=== PATIENT | female | born 1945 | race Caucasian/White ===

== ENCOUNTER → 2017-10-15 05:00 | Outpatient (REF) | payer MEDICARE, SELFPAY ==
[2017-10-15 08:33] LABS: Hematocrit 46.6 % (37-47); Hemoglobin 13.8 g/dl (12.0-15.0); Mean Corp Hgb Conc 29.6 g/gl (32-36); Mean Corpuscular Hgb 28.3 pg (27.0-32.0); Mean Corpuscular Volume 95.7 fL (81-99); Mean Platelet Vol. 11.7 fl (6.2-12.0); Platelet Count 169 K/mm3 (150-450); RBC Distribution Width CV 15.8 % (11.6-14.6); RBC Distribution Width SD 55.1 fl (35.1-43.9); Red Blood Count 4.87 M/mm3 (4.2-5.4); White Blood Count 5.7 K/mm3 (4.4-11.0)
[2017-10-15 08:43] LABS: Scan Indicated on CBC? Y/N NO
[2017-10-15 08:44] LABS: ALB/GLOB Ratio 0.9 RATIO (0.9-2.4); AST(SGOT) 17 U/L (15-37); Alanine Aminotransfer ALT/SGPT 16 U/L (12-78); Albumin, Serum 3.3 g/dL (3.4-5.0); Alkaline Phosphatase 64 U/L (45-117); Anion Gap 7 (5-15); BUN 14 mg/dL (7-18); BUN/Creat Ratio 17.1 RATIO (10-20); Chloride 99 mmol/L (98-107); Creatinine, Serum 0.82 mg/dL (0.55-1.02); EST Glomerular Filtration Rate 72 mL/min (>60); Est Glom Filt Rate - Afr Amer 88 mL/min (>60); Globulin 3.5 g/dL (2.2-4.2); Glucose 95 mg/dL (70-110); Potassium 4.1 mmol/L (3.5-5.1); Protein, Total 6.8 g/dL (6.4-8.2); Sodium Level 140 mmol/L (136-145)
== END ==
LOC: OLS.WHLBEN 05:00
PROVIDERS: Visit Provider Family Medicine
DX: I10 Essential (primary) hypertension (principal)
CPT/HCPCS: 36415; 80053; 85027

== ENCOUNTER → 2017-11-06 05:00 | Outpatient (REF) | payer MEDICARE, SELFPAY ==
[2017-11-06 09:42] LABS: Anion Gap 8 (5-15); BUN 18 mg/dL (7-18); BUN/Creat Ratio 19.4 RATIO (10-20); Calcium,Total 9.1 mg/dL (8.5-10.1); Chloride 98 mmol/L (98-107); Creatinine, Serum 0.93 mg/dL (0.55-1.02); EST Glomerular Filtration Rate 63 mL/min (>60); Est Glom Filt Rate - Afr Amer 76 mL/min (>60); Glucose 91 mg/dL (70-110); Sodium Level 140 mmol/L (136-145)
== END ==
LOC: OLS.WHLBEN 05:00
PROVIDERS: Visit Provider Family Medicine
DX: R60.9 Edema, unspecified (principal)
CPT/HCPCS: 36415; 80048

== ENCOUNTER → 2017-11-17 14:50 | Outpatient (REF) | payer MEDICARE, SELFPAY | LOC: OLS.WHLBEN 14:50 | PROVIDERS: Visit Provider Family Medicine | DX: J18.9 Pneumonia, unspecified organism (principal) | CPT/HCPCS: 36415; 87040 ==

== ENCOUNTER → 2017-11-19 05:00 | Outpatient (REF) | payer MEDICARE, SELFPAY ==
[2017-11-19 09:53] LABS: Anion Gap 8 (5-15); BUN 12 mg/dL (7-18); BUN/Creat Ratio 17.9 RATIO (10-20); Calcium,Total 8.8 mg/dL (8.5-10.1); Chloride 98 mmol/L (98-107); Creatinine, Serum 0.67 mg/dL (0.55-1.02); EST Glomerular Filtration Rate 91 mL/min (>60); Est Glom Filt Rate - Afr Amer 111 mL/min (>60); Glucose 100 mg/dL (70-110); Potassium 3.7 mmol/L (3.5-5.1); Sodium Level 142 mmol/L (136-145)
[2017-11-19 09:59] LABS: BNP,B-Type NATRIURETIC PEPTIDE 843.5 pg/mL (0-100)
== END ==
LOC: OLS.WHLBEN 05:00
PROVIDERS: Visit Provider Family Medicine
DX: J44.9 Chronic obstructive pulmonary disease, unspecified (principal); J18.9 Pneumonia, unspecified organism
CPT/HCPCS: 36415; 80048; 83880

== ENCOUNTER → 2017-11-20 05:00 | Outpatient (REF) | payer MEDICARE, SELFPAY ==
[2017-11-20 10:17] LABS: Hematocrit 43.7 % (37-47); Hemoglobin 13.5 g/dl (12.0-15.0); Mean Corp Hgb Conc 30.9 g/gl (32-36); Mean Corpuscular Hgb 28.7 pg (27.0-32.0); Mean Corpuscular Volume 92.8 fL (81-99); Mean Platelet Vol. 11.5 fl (6.2-12.0); Platelet Count 135 K/mm3 (150-450); RBC Distribution Width CV 16.2 % (11.6-14.6); RBC Distribution Width SD 53.3 fl (35.1-43.9); Red Blood Count 4.71 M/mm3 (4.2-5.4); Scan Indicated on CBC? Y/N NO; White Blood Count 5.3 K/mm3 (4.4-11.0)
[2017-11-20 10:36] LABS: ALB/GLOB Ratio 0.9 RATIO (0.9-2.4); AST(SGOT) 17 U/L (15-37); Alanine Aminotransfer ALT/SGPT 19 U/L (12-78); Albumin, Serum 3.1 g/dL (3.4-5.0); Alkaline Phosphatase 71 U/L (45-117); Anion Gap 8 (5-15); BUN 12 mg/dL (7-18); Calcium,Total 8.7 mg/dL (8.5-10.1); Chloride 100 mmol/L (98-107); Creatinine, Serum 0.75 mg/dL (0.55-1.02); EST Glomerular Filtration Rate 80 mL/min (>60); Est Glom Filt Rate - Afr Amer 97 mL/min (>60); Globulin 3.5 g/dL (2.2-4.2); Glucose 78 mg/dL (70-110); Potassium 3.8 mmol/L (3.5-5.1); Protein, Total 6.6 g/dL (6.4-8.2); Sodium Level 144 mmol/L (136-145)
== END ==
LOC: OLS.WHLBEN 05:00
PROVIDERS: Visit Provider Family Medicine
DX: I10 Essential (primary) hypertension (principal); E78.5 Hyperlipidemia, unspecified
CPT/HCPCS: 36415; 80053; 85027

== ENCOUNTER → 2017-12-17 05:00 | Outpatient (REF) | payer MEDICARE, SELFPAY ==
[2017-12-17 09:30] LABS: Hematocrit 42.5 % (37-47); Hemoglobin 13.3 g/dl (12.0-15.0); Mean Corp Hgb Conc 31.3 g/gl (32-36); Mean Corpuscular Hgb 29.3 pg (27.0-32.0); Mean Corpuscular Volume 93.6 fL (81-99); Mean Platelet Vol. 11.9 fl (6.2-12.0); Platelet Count 119 K/mm3 (150-450); RBC Distribution Width CV 17.3 % (11.6-14.6); RBC Distribution Width SD 56.9 fl (35.1-43.9); Red Blood Count 4.54 M/mm3 (4.2-5.4); White Blood Count 3.5 K/mm3 (4.4-11.0)
[2017-12-17 09:41] LABS: Scan Indicated on CBC? Y/N NO
[2017-12-17 09:42] LABS: AST(SGOT) 18 U/L (15-37); Alanine Aminotransfer ALT/SGPT 19 U/L (13-56); Albumin, Serum 3.4 g/dL (3.2-5.0); Alkaline Phosphatase 84 U/L (45-117); Anion Gap 8 (5-15); BUN 13 mg/dL (7-18); BUN/Creat Ratio 16.1 RATIO (10-20); Chloride 101 mmol/L (98-107); Cholesterol 167 mg/dL (200); Creatinine, Serum 0.81 mg/dL (0.55-1.02); EST Glomerular Filtration Rate 74 mL/min (>60); Est Glom Filt Rate - Afr Amer 89 mL/min (>60); Globulin 3.5 g/dL (2.2-4.2); Glucose 92 mg/dL (74-106); High Density Lipoprotein 54 mg/dL; Potassium 3.9 mmol/L (3.5-5.1); Protein, Total 6.9 g/dL (6.4-8.2); Sodium Level 142 mmol/L (136-145); Triglycerides 102 mg/dL; Very Low Density Lipoprotein 20 mg/dL (5-40)
== END ==
LOC: OLS.WHLBEN 05:00
PROVIDERS: Visit Provider Family Medicine
DX: I10 Essential (primary) hypertension (principal); E78.5 Hyperlipidemia, unspecified
CPT/HCPCS: 36415; 80053; 80061; 85027

== ENCOUNTER → 2017-12-19 05:00 | Outpatient (REF) | payer MEDICARE, SELFPAY ==
[2017-12-19 09:50] LABS: BNP,B-Type NATRIURETIC PEPTIDE 915.9 pg/mL (0-100)
== END ==
LOC: OLS.WHLBEN 05:00
PROVIDERS: Visit Provider Family Medicine
DX: I50.9 Heart failure, unspecified (principal)
CPT/HCPCS: 36415; 83880

== ENCOUNTER 2017-12-24 14:18 | Inpatient (IN) | payer MEDICARE, SELFPAY ==
[2017-12-24] VITALS (8 sets, daily range): BP systolic 130–137; BP diastolic 82–91; PULSE 94–106; RESP 18–24; TEMP 36.4–36.9; O2SAT 85–94; BMI 42.9; BMI 41.3
--- NOTE | 2017-12-24 15:05 | RAD_ITS ---
STUDY: X-RAY - RIGHT ANKLE REASON FOR EXAM: Female, 72 years old. Pain following a fall. TECHNIQUE: 3 view(s) of the ankle. COMPARISON: None. FINDINGS: There is a comminuted spiral fracture of the distal tibial shaft. There is good alignment. Normal medial and lateral malleoli. Normal tibiotalar articulation and ankle mortise. Plantar spur. Fusion of the talocalcaneal joint. There is osteopenia of the tarsal bones with a finding suggestive of a partial fusion. Diffuse soft tissue swelling. Vascular calcification. RAD/Ankle min 3 Views IMPRESSION: There is evidence of a comminuted spiral fracture of the distal tibia with a diffuse soft tissue swelling. Vascular calcification. There is fusion of the talocalcaneal joint as well as the tarsal joints. Electronically Signed: Antoni Meier MD at 15:29 EST Tel [phone], Service support ,
--- NOTE | 2017-12-24 16:00 | EKG12_ITS ---
Test Reason : FALL Blood Pressure : / mmHG Vent. Rate : 096 BPM Atrial Rate : 096 BPM P-R Int : 160 ms QRS Dur : 152 ms QT Int : 394 ms P-R-T Axes : 056 -16 052 degrees QTc Int : 497 ms Normal sinus rhythm Low voltage QRS (limb leads) Left bundle branch block Abnormal ECG Confirmed by ALEAH LARA, JUSTO ([id number]), news editor CLARISSA CONTRERAS ([id number]) on 12/26/2017 1:32:49 PM Referred By: LUISA Confirmed By:JUSTO BULLARD MD
--- NOTE | 2017-12-24 16:00 | RAD_ITS ---
STUDY: X-RAY CHEST REASON FOR EXAM: Female, 72 years old. Cough. TECHNIQUE: AP portable COMPARISON: March 14, 2017 FINDINGS: There is a new moderate-sized right pleural effusion. There is cardiomegaly present. Normal mediastinum and fazal. Normal visualized pulmonary arteries. There is atherosclerotic calcification of the aortic arch with tortuosity. Normal visualized thoracic spine. Normal visualized ribs, clavicles, and shoulders. There is no demonstrated abnormality of the visualized soft tissue structures of the upper abdomen. RAD/Chest 1 View (Portable) IMPRESSION: New right-sided pleural effusion, cannot exclude associated right basilar atelectasis and/or pneumonia. Electronically Signed: Shyann Sanchez MD at 17:01 EST Tel , Service support ,
--- NOTE | 2017-12-24 16:05 | ED.DCSUM_ITS ---
- ER Visit Summary Date of Service: 12/24/17 Chief Complaint: Fall History of Present Illness: The patient is a 72 F who presents after a fall. 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 She is at an assisted living. She was attempting to sit down on the commode when she slipped and fell injuring her right ankle. She denies any other injuries. She denies back pain chest pain head injury loss of consciousness headache or vomiting. She did sustain some abrasions to her forearms but denies any pain. Physical Examination: Febrile heart rate 106 respiratory rate 24 Heart regular rhythm tachycardia Tachypnea without rales or wheezing Abdomen soft Patient has right ankle and distal lower leg tenderness she has a palpable dorsalis pedis pulse she has chronic venous stasis changes limited painful range of motion ankle no foot tenderness no pain at the proximal fibula or knee no pain at the hip GCS of 15 with no focal or lateralizing neurological deficits Test Results: Ankle x-ray shows a comminuted spiral distal tibial fracture Emergency Department Course and Treatment: Given patient's poor mobility at baseline with a distal tibial fracture I do not believe she will be able to care for herself at her current level of care. I spoke to Dr. Hermes Castle's nurse for orthopedic consult. We will admit patient to hospitalist serving given multiple comorbidities. At the time this dictation further medical clearance including laboratory studies EKG and chest x-ray have been ordered currently pending. Treatment Plan: [] Disposition: Admit Impression: Right tibia fracture This note was generated with [employer] dictation software. It may contain incorrect words, spelling, and punctuation that were not noted in review of the chart prior to signing ED Disposition - Plan for ED Patient: Chief Complaint: Fall Referrals: Garret Castle MD [Primary Care Provider] -
[2017-12-24 16:44] LABS: International Normalized Ratio 1.2; Prothrombin Time (Protime)PT. 14.5 SECONDS (11.7-14.9)
[2017-12-24 16:49] LABS: Absolute Lymphocyte Count 0.59 X10^3/ul (0.83-4.51); Absolute Neutrophil Count 6.1 X10^3/uL (2.0-7.7); Basophil# 0.08 X10^3/uL; Basophil% 1.1 % (0-1); Differential Indicated SCAN CRITERIA MET; Eosinophil# 0.04 X10^3/uL; Eosinophils% 0.5 % (0-5); Hematocrit 47.1 % (37-47); Hemoglobin 14.5 g/dl (12.0-15.0); Lymphocyte # 0.59 X10^3/ul (4.0); Mean Corp Hgb Conc 30.8 g/gl (32-36); Mean Corpuscular Hgb 28.8 pg (27.0-32.0); Mean Corpuscular Volume 93.6 fL (81-99); Mean Platelet Vol. 11.2 fl (6.2-12.0); Monocyte# 0.51 X10^3/uL; Monocyte% 6.9 % (0-10); Neutrophil # 6.13 X10^3/uL (2.7-7.7); Neutrophil % 83.2 % (47-70); POSITIVE COUNT NO; POSITIVE DIFFERENTIAL YES; POSITIVE MORPHOLOGY NO; Platelet Count 150 K/mm3 (150-450); RBC Distribution Width CV 17.7 % (11.6-14.6); RBC Distribution Width SD 58.3 fl (35.1-43.9); Red Blood Count 5.03 M/mm3 (4.2-5.4); White Blood Count 7.4 K/mm3 (4.4-11.0)
[2017-12-24 17:05] LABS: Anion Gap 7 (5-15); BUN 17 mg/dL (7-18); BUN/Creat Ratio 18.8 RATIO (10-20); Calcium,Total 9.4 mg/dL (8.5-10.1); Chloride 99 mmol/L (98-107); EST Glomerular Filtration Rate 65 mL/min (>60); Est Glom Filt Rate - Afr Amer 79 mL/min (>60); Estimated Creatinine Clearance 44.03 ml/min; Glucose 120 mg/dL (74-106); Potassium 4.2 mmol/L (3.5-5.1); Sodium Level 142 mmol/L (136-145)
--- NOTE | 2017-12-24 17:23 | PCM.HP.STD ---
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 (6) Alcohol abuse Status: Chronic Comment: PATIENT STATES SHE DRINKS 1- 1 1/2 LITERS OF WINE NITELY-THERE WAS NO EVIDENCE OF ANXIETY OR DT'S DURING HER HOSPITAL STAY (7) Tobacco consumption Status: Chronic Comment: PATIENT SMOKES 1- 1 1/2 PACKS CIGARETTES PER DAY-REFUSED NICOTINE PATCH AND HAD NO SIDE EFFECTS FROM BEING OFF TOBACCO WHILE IN HOSPITAL (8) Hyperlipidemia Status: Chronic (9) Anxiety Status: Chronic (10) Depression Status: Chronic (11) Deafness Status: Chronic History of Present Illness Date of Admission: 12/24/17 Chief Complaint: Mechanical fall, right leg injury The patient is a 72 year old F who presents to the emergency room after sustaining mechanical fall at assisted living facility in which she injured right leg. Patient states she was using the restroom when she fell off of the side of the commode. She states she was unable to help herself up due to being in an awkward position. She denies hitting her head at the time of the fall. She denies dizziness or other symptoms prior to fall. She states she has had falls in the past which resulted in injuries as well. Patient denies pain currently but states she has increased pain with movement of right lower extremity. She denies other associated complaints. 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 Right lower extremity has splint in place and is wrapped with Nestor bandage. She is able to move her toes on the right lower extremity and sensation is intact. Her other past medical history includes nonischemic cardiomyopathy, hypertension, sinus tachycardia, degenerative joint disease of the lumbar spine, history of tobacco use, hyperlipidemia, history of pelvic fracture following mechanical fall, alcohol abuse. Patient drinks 1-2 L of wine per day. Past Medical History Past Medical History (Chronic Problems): Chronic Problems Anxiety (Chronic) Depression (Chronic) Deafness (Chronic) Cardiomyopathy (Chronic) NON ISCHEMIC CARDIOMYOPATHY Hypertension (Chronic) Degenerative joint disease (DJD) of lumbar spine (Chronic) Alcohol abuse (Chronic) PATIENT STATES SHE DRINKS 1- 1 1/2 LITERS OF WINE NITELY-THERE WAS NO EVIDENCE OF ANXIETY OR DT'S DURING HER HOSPITAL STAY Tobacco consumption (Chronic) PATIENT SMOKES 1- 1 1/2 PACKS CIGARETTES PER DAY-REFUSED NICOTINE PATCH AND HAD NO SIDE EFFECTS FROM BEING OFF TOBACCO WHILE IN HOSPITAL Hyperlipidemia (Chronic) Allergies acetaminophen Allergy (Verified 12/24/17 15:53) Unknown ibuprofen Allergy (Verified 12/24/17 15:53) Swelling Penicillins Allergy (Verified 12/24/17 15:53) Swelling Home Medications: Ambulatory Orders Medication Instructions Recorded Albuterol Aerosols [Ventolin 2.5 mg INHALATION Q6H PRN PRN 12/24/17 Aerosols] Buspirone HCl 15 mg PO BID 12/24/17 Carbamide Peroxide [Ear Wax 3 drop OT QHS 12/24/17 Removal] Cyanocobalamin [Vitamin B12] 1,000 mcg PO DAILY@0800 12/24/17 Escitalopram Oxalate [Lexapro] 10 mg PO DAILY 12/24/17 Fluticasone/Vilanterol [Breo 1 each IH DAILY 12/24/17 Ellipta Inhaler] Folic Acid 1 mg PO DAILY 12/24/17 Furosemide 40 mg PO DAILY 12/24/17 Ipratropium/Albuterol Sulfate 3 ml INHALATION Q4H PRN PRN 12/24/17 [Duoneb] Lactobacillus Acidophilus 1 each PO DAILY 12/24/17 [Acidophilus] Loperamide [Imodium] 4 mg PO X1 PRN 12/24/17 Lorazepam [Ativan] 0.25 mg PO Q6H PRN PRN 12/24/17 Melatonin 1 mg PO QHS 12/24/17 Multivitamin [Animal Shapes] 1 each PO DAILY 12/24/17 Trazodone HCl 25 mg PO QHS 12/24/17 Surgical History: hysterectomy, - - oophorectomy, ankle surgery, foot surgery, bilateral knee surgery, wrist surgery Psychiatric History: No pertinent psych hx, Anxiety [employer] History: No pertinent [employer] history, ovarian cancer Lives: Detention Smoking Status: Former smoker Alcohol: Heavy Drugs: None - *Family History Maternal History Items: Unknown - Adopted Paternal History Items: Unknown - Adopted Review of Systems Constitutional: Denies: Chills, Fever, Weight Change HEENT: Denies: Head Aches, Sinus Congestion, Sinus Drainage Cardiovascular: Denies: Chest Pain, Palpitations Respiratory: Reports: Cough - Chronic, nonproductive, Shortness of breath upon exertion - Chronic Gastrointestinal: Denies: Abdominal Pain, Nausea, Vomiting Genitourinary: Denies: Dysuria Musculoskeletal: Reports: - - Right lower extremity pain with movement Neurological: Reports: Balance problems, - - Chronic numbness, tingling. Denies: Blurred vision, Slurred speech, Confusion, Focal weakness Psychiatric: Denies: Anxiety, Depression, Homicidal Ideations, Suicidal Ideations Hematologic/ Lymphatic: Denies: Easy Bruising, Easy Bleeding VTE Information - Inpt Only VTE Present on Admission: No VTE Mechan Device Prophylaxis: None VTE Pharm Prophylaxis ordered?: Yes - Physical Exam General: Alert, Oriented x3, Cooperative, No apparent distress Oral: Dry Mucosa Neck: Supple, No JVD, Negative Carotid Bruits Lungs: Diminished, Rhonchi Cardiovascular: Regular Rhythm, Normal S1, Normal S2, No murmurs, Tachycardic Abdomen: Bowel Sounds Present, Soft, Non Tender, Non-Distended, Obese Extremities: No clubbing, No cyanosis, No edema, Capillary Refill Less than 3 Seconds Skin: No rashes, No breakdown Musculoskeletal: Tenderness - RLE Lymphatic: No Cervical, Supraclavicular, or Inguinal Adenopathy Neurological: Cranial nerves II-XII grossly intact, Neuro grossly intact Psych/Mental Status: Normal Affect, Appropriate Vital Signs Temp Pulse Resp BP Pulse Ox 97.5 F L 104 H 24 H 130/88 H 90 12/24/17 14:20 12/24/17 17:05 12/24/17 14:20 12/24/17 17:05 12/24/17 17:05 Oxygen Flow Rate 3 Oxygen Delivery Method Nasal Cannula Weight: 106.4 kg Body Mass Index (BMI) 42.9 Laboratory Tests Past 24 Hrs 12/24/17 12/24/17 12/24/17 16:20 16:20 16:20 WBC 7.4 RBC 5.03 Hgb 14.5 Hct 47.1 H MCV 93.6 MCH 28.8 MCHC 30.8 L RDW 17.7 H RDW Differential 58.3 H Plt Count 150 MPV 11.2 Immature Gran % (Auto) 0.300 Neut % (Auto) 83.2 H Lymph % (Auto) 8.0 L Branch % (Auto) 6.9 Eos % (Auto) 0.5 Baso % (Auto) 1.1 H Absolute Neuts (auto) 6.1 Absolute Lymphs (auto) 0.59 L Total Counted Not Reportable Differential Comment PT 14.5 INR 1.2 Sodium 142 Potassium 4.2 Chloride 99 Carbon Dioxide 36.0 H Anion Gap 7 BUN 17 Creatinine 0.90 Estim Creat Clear Calc 44.03 Est GFR (MDRD) Af Amer 79 Est GFR (MDRD) Non-Af 65 BUN/Creatinine Ratio 18.8 Glucose 120 H Calcium 9.4 Assessment/Plan 1. Acute distal tibia spiral fracture secondary to mechanical fall prior to admission with associated physical debility-Dr. Hermes Castle, orthopedic consulted by ER. X-ray of right ankle shows evidence of a comminuted spiral fracture of the distal tibia with a diffuse soft tissue swelling. Vascular calcification. Fusion of the talocalcaneal joint as well as the tarsal joints. Ortho consulted pending. PRN pain regimen. PT/OT when approved by ortho. Fall precautions. Patient has had previous falls in assisted living in the past resulting in injury including pelvic fracture. It is possible she may need discharge to [facility] facility at discharge. 2. Right sided pleural effusion-low suspicion for pneumonia-patient has chronic nonproductive cough. Denies fever, chills. Chest x-ray shows new right-sided pleural effusion, cannot exclude associated right basilar atelectasis and/or pneumonia. No leukocytosis. Patient is afebrile. Albuterol and DuoNeb aerosols. IS/PEP. Repeat CXR in a.m. 3. Chronic COPD-patient has extensive smoking history, previously smoking 3 packs per day. Denies recent tobacco use. She is on multiple inhalers at [facility] facility including albuterol, Brio elliptical, DuoNeb. Patient has not had any formal pulmonary function testing. Albuterol and DuoNeb aerosols. Continue supplemental oxygen to maintain at O2 at or above 90%. IS. 4. Acute on chronic hypoxia-suspected secondary to #1/#2. Patient states she wears oxygen intermittently at assisted living facility. Continue supplemental oxygen to maintain O2 at or above 90%. 5. History of nonischemic cardiomyopathy-continue Lasix regimen. Echocardiogram March 2017 showed an estimated ejection fraction of 30%, moderate mitral valve insufficiency. 6. Hypertension-stable, continue home Lasix regimen. 7. Hyperlipidemia-not on a statin. 8. 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 9. Alcohol abuse-encouraged alcohol cessation. Continue B12, folic acid, multivitamin supplementation. [facility] protocol. 10. History of tobacco use-denies current use. Encouraged continued cessation. 11. Anxiety/Depression-continue home medication regimen including buspirone, Lexapro, Ativan. 12. History of ovarian cancer-status post hysterectomy in 1981. 13. Deafness-patient communicates fairly well. Provide assistive devices for communication as necessary. DVT prophylaxis-Lovenox subcu. This patient was seen by NABOR Elizabeth under the supervision of Dr. Wheeler. <Hilary Wheeler - Last Filed: 12/24/17 21:12> History of Present Illness The patient is a 72 year old F [] Past Medical History Allergies acetaminophen Allergy (Verified 12/24/17 15:53) Unknown ibuprofen Allergy (Verified 12/24/17 15:53) Swelling Penicillins Allergy (Verified 12/24/17 15:53) Swelling - Physical Exam Vital Signs Temp Pulse Resp BP Pulse Ox 98.4 F 102 H 18 134/85 H 94 12/24/17 18:02 12/24/17 18:02 12/24/17 18:02 12/24/17 18:02 12/24/17 18:02 Oxygen Flow Rate 3 Oxygen Delivery Method Nasal Cannula Weight: 102.512 kg Body Mass Index (BMI) 41.3 Laboratory Tests Past 24 Hrs 12/24/17 12/24/17 18:58 18:58 Vit D 1,25-Dihydroxy Pending Ethyl Alcohol < 3.0 Assessment/Plan Patient was seen and examined independently of nurse practitioner, Margo Bauman. History and physical exam as well as assessment and plan per her notes. Patient denies any complains of pain at the time of being seen. Fell in her bathroom, called for help and found to have a distal tibial/fibula fracture. Vitals are stable, labs are unremarkable. A/P 1. Right comminuted spiral fracture of the distal tibia, orthopedics consulted, patient is moderate risk for planned procedure, because of her pulmonary status with underlying history of COPD where she is supposed to wear oxygen sometimes, with pleural effusion seen on x-ray. We need to repeat the x-ray in the morning, continue on incentive spirometer. Doubt pneumonia because no fever or leukocytosis. 2. COPD, not in acute exacerbation 3. Acute respiratory insufficiency secondary to atelectasis/pleural effusion, will need to follow-up and wean oxygen for SpO2 more than 92% 4. Chronic CHF, systolic, not in acute exacerbation, continue on home Lasix 5. 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 Alcohol abuse, polypharmacy -she is on multiple sedatives such as Ativan, trazodone, melatonin that likely contributed to her patient's fall today, will DC as needed Ativan today, and consider decreasing trazodone if patient has no complaints with sleep. Code Visit Inpatient E&M: 84385 Init Hosp L3
--- NOTE | 2017-12-24 17:53 | HP.PCM_ITS ---
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 (6) Alcohol abuse Status: Chronic Comment: PATIENT STATES SHE DRINKS 1- 1 1/2 LITERS OF WINE NITELY-THERE WAS NO EVIDENCE OF ANXIETY OR DT'S DURING HER HOSPITAL STAY (7) Tobacco consumption Status: Chronic Comment: PATIENT SMOKES 1- 1 1/2 PACKS CIGARETTES PER DAY- REFUSED NICOTINE PATCH AND HAD NO SIDE EFFECTS FROM BEING OFF TOBACCO WHILE IN HOSPITAL (8) Hyperlipidemia Status: Chronic (9) Anxiety Status: Chronic (10) Depression Status: Chronic (11) Deafness Status: Chronic History of Present Illness Date of Admission: 12/24/17 Chief Complaint: Mechanical fall, right leg injury The patient is a 72 year old F who presents to the emergency room after sustaining mechanical fall at assisted living facility in which she injured right leg. Patient states she was using the restroom when she fell off of the side of the commode. She states she was unable to help herself up due to being in an awkward position. She denies hitting her head at the time of the fall. She denies dizziness or other symptoms prior to fall. She states she has had falls in the past which resulted in injuries as well. Patient denies pain currently but states she has increased pain with movement of right lower extremity. She denies other associated complaints. 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 Right lower extremity has splint in place and is wrapped with Nestor bandage. She is able to move her toes on the right lower extremity and sensation is intact. Her other past medical history includes nonischemic cardiomyopathy, hypertension, sinus tachycardia, degenerative joint disease of the lumbar spine, history of tobacco use, hyperlipidemia, history of pelvic fracture following mechanical fall, alcohol abuse. Patient drinks 1-2 L of wine per day. Past Medical History Past Medical History (Chronic Problems): Chronic Problems Anxiety (Chronic) Depression (Chronic) Deafness (Chronic) Cardiomyopathy (Chronic) NON ISCHEMIC CARDIOMYOPATHY Hypertension (Chronic) Degenerative joint disease (DJD) of lumbar spine (Chronic) Alcohol abuse (Chronic) PATIENT STATES SHE DRINKS 1- 1 1/2 LITERS OF WINE NITELY-THERE WAS NO EVIDENCE OF ANXIETY OR DT'S DURING HER HOSPITAL STAY Tobacco consumption (Chronic) PATIENT SMOKES 1- 1 1/2 PACKS CIGARETTES PER DAY-REFUSED NICOTINE PATCH AND HAD NO SIDE EFFECTS FROM BEING OFF TOBACCO WHILE IN HOSPITAL Hyperlipidemia (Chronic) Allergies acetaminophen Allergy (Verified 12/24/17 15:53) Unknown ibuprofen Allergy (Verified 12/24/17 15:53) Swelling Penicillins Allergy (Verified 12/24/17 15:53) Swelling Home Medications: Ambulatory Orders Medication Instructions Recorded Albuterol Aerosols [Ventolin 2.5 mg INHALATION Q6H PRN PRN 12/24/17 Aerosols] Buspirone HCl 15 mg PO BID 12/24/17 Carbamide Peroxide [Ear Wax 3 drop OT QHS 12/24/17 Removal] Cyanocobalamin [Vitamin B12] 1,000 mcg PO DAILY@0800 12/24/17 Escitalopram Oxalate [Lexapro] 10 mg PO DAILY 12/24/17 Fluticasone/Vilanterol [Breo 1 each IH DAILY 12/24/17 Ellipta Inhaler] Folic Acid 1 mg PO DAILY 12/24/17 Furosemide 40 mg PO DAILY 12/24/17 Ipratropium/Albuterol Sulfate 3 ml INHALATION Q4H PRN PRN 12/24/17 [Duoneb] Lactobacillus Acidophilus 1 each PO DAILY 12/24/17 [Acidophilus] Loperamide [Imodium] 4 mg PO X1 PRN 12/24/17 Lorazepam [Ativan] 0.25 mg PO Q6H PRN PRN 12/24/17 Melatonin 1 mg PO QHS 12/24/17 Multivitamin [Animal Shapes] 1 each PO DAILY 12/24/17 Trazodone HCl 25 mg PO QHS 12/24/17 Surgical History: hysterectomy, - - oophorectomy, ankle surgery, foot surgery, bilateral knee surgery, wrist surgery Psychiatric History: No pertinent psych hx, Anxiety [employer] 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 History: No pertinent ME[employer] TE[employer]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 history, ovarian cancer Lives: Intermediate Smoking Status: Former smoker Alcohol: Heavy Drugs: None - *Family History Maternal History Items: Unknown - Adopted Paternal History Items: Unknown - Adopted Review of Systems Constitutional: Denies: Chills, Fever, Weight Change HEENT: Denies: Head Aches, Sinus Congestion, Sinus Drainage Cardiovascular: Denies: Chest Pain, Palpitations Respiratory: Reports: Cough - Chronic, nonproductive, Shortness of breath upon exertion - Chronic Gastrointestinal: Denies: Abdominal Pain, Nausea, Vomiting Genitourinary: Denies: Dysuria Musculoskeletal: Reports: - - Right lower extremity pain with movement Neurological: Reports: Balance problems, - - Chronic numbness, tingling. Denies : Blurred vision, Slurred speech, Confusion, Focal weakness Psychiatric: Denies: Anxiety, Depression, Homicidal Ideations, Suicidal Ideations Hematologic/ Lymphatic: Denies: Easy Bruising, Easy Bleeding VTE Information - Inpt Only VTE Present on Admission: No VTE Mechan Device Prophylaxis: None VTE Pharm Prophylaxis ordered?: Yes - Physical Exam General: Alert, Oriented x3, Cooperative, No apparent distress Oral: Dry Mucosa Neck: Supple, No JVD, Negative Carotid Bruits Lungs: Diminished, Rhonchi Cardiovascular: Regular Rhythm, Normal S1, Normal S2, No murmurs, Tachycardic Abdomen: Bowel Sounds Present, Soft, Non Tender, Non-Distended, Obese Extremities: No clubbing, No cyanosis, No edema, Capillary Refill Less than 3 Seconds Skin: No rashes, No breakdown Musculoskeletal: Tenderness - RLE Lymphatic: No Cervical, Supraclavicular, or Inguinal Adenopathy Neurological: Cranial nerves II-XII grossly intact, Neuro grossly intact Psych/Mental Status: Normal Affect, Appropriate Vital Signs Temp Pulse Resp BP Pulse Ox 97.5 F L 104 H 24 H 130/88 H 90 12/24/17 14:20 12/24/17 17:05 12/24/17 14:20 12/24/17 17:05 12/24/17 17:05 Oxygen Flow Rate 3 Oxygen Delivery Method Nasal Cannula Weight: 106.4 kg Body Mass Index (BMI) 42.9 Laboratory Tests Past 24 Hrs 12/24/17 12/24/17 12/24/17 16:20 16:20 16:20 WBC 7.4 RBC 5.03 Hgb 14.5 Hct 47.1 H MCV 93.6 MCH 28.8 MCHC 30.8 L RDW 17.7 H RDW Differential 58.3 H Plt Count 150 MPV 11.2 Immature Gran % (Auto) 0.300 Neut % (Auto) 83.2 H Lymph % (Auto) 8.0 L [place] % (Auto) 6.9 Eos % (Auto) 0.5 Baso % (Auto) 1.1 H Absolute Neuts (auto) 6.1 Absolute Lymphs (auto) 0.59 L Total Counted Not Reportable Differential Comment PT 14.5 INR 1.2 Sodium 142 Potassium 4.2 Chloride 99 Carbon Dioxide 36.0 H Anion Gap 7 BUN 17 Creatinine 0.90 Estim Creat Clear Calc 44.03 Est GFR (MDRD) Af Amer 79 Est GFR (MDRD) Non-Af 65 BUN/Creatinine Ratio 18.8 Glucose 120 H Calcium 9.4 Assessment/Plan 1. Acute distal tibia spiral fracture secondary to mechanical fall prior to admission with associated physical debility-Dr. Hermes Castle, orthopedic consulted by ER. X-ray of right ankle shows evidence of a comminuted spiral fracture of the distal tibia with a diffuse soft tissue swelling. Vascular calcification. Fusion of the talocalcaneal joint as well as the tarsal joints. Ortho consulted pending. PRN pain regimen. PT/OT when approved by ortho. Fall precautions. Patient has had previous falls in assisted living in the past resulting in injury including pelvic fracture. It is possible she may need discharge to halfway facility at discharge. 2. Right sided pleural effusion-low suspicion for pneumonia-patient has chronic nonproductive cough. Denies fever, chills. Chest x-ray shows new right- sided pleural effusion, cannot exclude associated right basilar atelectasis and/ or pneumonia. No leukocytosis. Patient is afebrile. Albuterol and DuoNeb aerosols. IS/PEP. Repeat CXR in a.m. 3. Chronic COPD-patient has extensive smoking history, previously smoking 3 packs per day. Denies recent tobacco use. She is on multiple inhalers at halfway facility including albuterol, Brio elliptical, DuoNeb. Patient has not had any formal pulmonary function testing. Albuterol and DuoNeb aerosols. Continue supplemental oxygen to maintain at O2 at or above 90%. IS. 4. Acute on chronic hypoxia-suspected secondary to #1/#2. Patient states she wears oxygen intermittently at assisted living facility. Continue supplemental oxygen to maintain O2 at or above 90%. 5. History of nonischemic cardiomyopathy-continue Lasix regimen. Echocardiogram March 2017 showed an estimated ejection fraction of 30%, moderate mitral valve insufficiency. 6. Hypertension-stable, continue home Lasix regimen. 7. Hyperlipidemia-not on a statin. 8. 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 9. Alcohol abuse-encouraged alcohol cessation. Continue B12, folic acid, multivitamin supplementation. [facility] protocol. 10. History of tobacco use-denies current use. Encouraged continued cessation. 11. Anxiety/Depression-continue home medication regimen including buspirone, Lexapro, Ativan. 12. History of ovarian cancer-status post hysterectomy in 1981. 13. Deafness-patient communicates fairly well. Provide assistive devices for communication as necessary. DVT prophylaxis-Lovenox subcu. This patient was seen by NABOR Elizabeth under the supervision of Dr. Wheeler. <Hilary Wheeler - Last Filed: 12/24/17 21:12> History of Present Illness The patient is a 72 year old F [] Past Medical History Allergies acetaminophen Allergy (Verified 12/24/17 15:53) Unknown ibuprofen Allergy (Verified 12/24/17 15:53) Swelling Penicillins Allergy (Verified 12/24/17 15:53) Swelling - Physical Exam Vital Signs Temp Pulse Resp BP Pulse Ox 98.4 F 102 H 18 134/85 H 94 12/24/17 18:02 12/24/17 18:02 12/24/17 18:02 12/24/17 18:02 12/24/17 18:02 Oxygen Flow Rate 3 Oxygen Delivery Method Nasal Cannula Weight: 102.512 kg Body Mass Index (BMI) 41.3 Laboratory Tests Past 24 Hrs 12/24/17 12/24/17 18:58 18:58 Vit D 1,25-Dihydroxy Pending Ethyl Alcohol < 3.0 Assessment/Plan Patient was seen and examined independently of nurse practitioner, Margo Bauman. History and physical exam as well as assessment and plan per her notes. Patient denies any complains of pain at the time of being seen. Fell in her bathroom, called for help and found to have a distal tibial/fibula fracture. Vitals are stable, labs are unremarkable. A/P 1. Right comminuted spiral fracture of the distal tibia, orthopedics consulted, patient is moderate risk for planned procedure, because of her pulmonary status with underlying history of COPD where she is supposed to wear oxygen sometimes, with pleural effusion seen on x-ray. We need to repeat the x-ray in the morning , continue on incentive spirometer. Doubt pneumonia because no fever or leukocytosis. 2. COPD, not in acute exacerbation 3. Acute respiratory insufficiency secondary to atelectasis/pleural effusion, will need to follow-up and wean oxygen for SpO2 more than 92% 4. Chronic CHF, systolic, not in acute exacerbation, continue on home Lasix 5. 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 Alcohol abuse, polypharmacy -she is on multiple sedatives such as Ativan, trazodone, melatonin that likely contributed to her patient's fall today, will DC as needed Ativan today, and consider decreasing trazodone if patient has no complaints with sleep. Code Visit Inpatient E&M: 38160 Init Hosp L3
[2017-12-24 20:49] LABS: Alcohol, Blood (Medical)-Serum < 3.0 mg/dL
--- NOTE | 2017-12-24 20:59 | PCM.CONS.GEN ---
Reason for Consult Date of Consultation: 12/24/17 History of Present Illness: The patient is a 72 year old female with multiple medical problems. She stumbled today fracturing her right lower extremity. She denied chest pain or shortness of breath at the time. No head injury. She has fallen before. She has had previous pelvic fractures treated nonoperatively. She is a minimal ambulator with assistance. She does use a wheelchair some. Her pain is currently well controlled. She is comfortable in her splint. [] Past Medical History Past Medical History (Chronic Problems): Chronic Problems Anxiety (Chronic) Depression (Chronic) Deafness (Chronic) Cardiomyopathy (Chronic) NON ISCHEMIC CARDIOMYOPATHY Hypertension (Chronic) Degenerative joint disease (DJD) of lumbar spine (Chronic) Alcohol abuse (Chronic) PATIENT STATES SHE DRINKS 1- 1 1/2 LITERS OF WINE NITELY-THERE WAS NO EVIDENCE OF ANXIETY OR DT'S DURING HER HOSPITAL STAY Tobacco consumption (Chronic) PATIENT SMOKES 1- 1 1/2 PACKS CIGARETTES PER DAY-REFUSED NICOTINE PATCH AND HAD NO SIDE EFFECTS FROM BEING OFF TOBACCO WHILE IN HOSPITAL Hyperlipidemia (Chronic) Allergies acetaminophen Allergy (Verified 12/24/17 15:53) Unknown ibuprofen Allergy (Verified 12/24/17 15:53) Swelling Penicillins Allergy (Verified 12/24/17 15:53) Swelling Home Medications: Ambulatory Orders Medication Instructions Recorded Albuterol Aerosols [Ventolin 2.5 mg INHALATION Q6H PRN PRN 12/24/17 Aerosols] Buspirone HCl 15 mg PO BID 12/24/17 Carbamide Peroxide [Ear Wax 3 drop OT QHS 12/24/17 Removal] Cyanocobalamin [Vitamin B12] 1,000 mcg PO DAILY@0800 12/24/17 Escitalopram Oxalate [Lexapro] 10 mg PO DAILY 12/24/17 Fluticasone/Vilanterol [Breo 1 each IH DAILY 12/24/17 Ellipta Inhaler] Folic Acid 1 mg PO DAILY 12/24/17 Furosemide 40 mg PO DAILY 12/24/17 Ipratropium/Albuterol Sulfate 3 ml INHALATION Q4H PRN PRN 12/24/17 [Duoneb] Lactobacillus Acidophilus 1 each PO DAILY 12/24/17 [Acidophilus] Loperamide [Imodium] 4 mg PO X1 PRN 12/24/17 Lorazepam [Ativan] 0.25 mg PO Q6H PRN PRN 12/24/17 Melatonin 1 mg PO QHS 12/24/17 Multivitamin [Animal Shapes] 1 each PO DAILY 12/24/17 Trazodone HCl 25 mg PO QHS 12/24/17 Surgical History: hysterectomy, - - oophorectomy, ankle surgery, foot surgery, bilateral knee surgery, wrist surgery Psychiatric History: No pertinent psych hx, Anxiety 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 She can gently wiggle the toes. She has abnormal light touch sensation of both lower extremities from her underlying [place] Mccabe? syndrome. She had no pain at the knees or hips. Normal capillary refill at the toes. No severe pain with gentle passive toe motion. Clinically right lower extremity well aligned. X-rays AP lateral and oblique of right ankle shows a spiral distal tibia fracture extra-articular in very reasonable alignment on all views. Some osteopenia noted. Minimal comminution. Laboratory work and vital signs reviewed Note from hospitalist reviewed - Physical Exam Vital Signs Temp Pulse Resp BP Pulse Ox 98.4 F 102 H 18 134/85 H 94 12/24/17 18:02 12/24/17 18:02 12/24/17 18:02 12/24/17 18:02 12/24/17 18:02 Oxygen Flow Rate 3 Oxygen Delivery Method Nasal Cannula Weight: 102.512 kg Body Mass Index (BMI) 41.3 Laboratory Tests Past 24 Hrs 12/24/17 12/24/17 18:58 18:58 Vit D 1,25-Dihydroxy Pending Ethyl Alcohol < 3.0 Assessment/Plan Right distal tibia fracture fairly well aligned. Operative and nonoperative interventions discussed with her. She understands surgery could consist of a tibial nail or plate and screws. She understood nonoperative care could be a cast splint or brace. She understands complications that could occur with and without surgery. She understands this fracture can take 6 or 12 weeks if not longer to heal with or without surgery. No guarantees were stated or implied with either treatment option. She does understand based on her comorbidities she is at a higher risk for surgery. She would like to avoid surgery if possible. Risk of nonunion malunion, pain stiffness weakness, possible pressure sores from her cast or brace. Possibility of DVT or PE with or without surgery. I will recommend ice and elevation and nonweightbearing. Command follow up in office in 7-10 days for repeat x-rays. We may consider switching her to a cast or brace at that point. SHe understands and agrees. Of her questions answered Multiple medical comorbidities, evaluation and treatment per hospitalist service
[2017-12-24] MEDS: traZODone 50 MG Tablet 25 MG PO (21:08)
[2017-12-24] MEDS: Budesonide Respules 0.5 MG/2 ML AMPUL.NEB. INHALATION (22:45)
[2017-12-24] MEDS: Ipratropium/Albuterol Sulfate 3 ML AMPUL.NEB INHALATION (22:45)
[2017-12-25] VITALS (17 sets, daily range): BP systolic 117–121; BP diastolic 66–75; PULSE 79–104; RESP 16–20; TEMP 36.3–36.7; O2SAT 92–97
--- NOTE | 2017-12-25 05:55 | RAD_ITS ---
STUDY: X-RAY CHEST REASON FOR EXAM: Female, 72 years old. Shortness of breath. TECHNIQUE: AP portable chest. COMPARISON: December 24, 2017. FINDINGS: Moderate cardiomegaly with moderate size right pleural effusion unchanged. No pneumothorax. Normal mediastinum and fazal. Normal visualized pulmonary arteries. Normal visualized aortic arch and descending thoracic aorta. Normal visualized thoracic spine. Normal visualized ribs, clavicles, and shoulders. There is no demonstrated abnormality of the visualized soft tissue structures of the upper abdomen. RAD/Chest 1 View (Portable) IMPRESSION: Stable cardiomegaly and right-sided pleural effusion. Electronically Signed: Jose E Maher MD at 6:38 EST , Service support ,
[2017-12-25] MEDS: Ipratropium/Albuterol Sulfate 3 ML AMPUL.NEB INHALATION ×4 (07:24→18:41)
[2017-12-25] MEDS: Budesonide Respules 0.5 MG/2 ML AMPUL.NEB. INHALATION ×2 (07:24→18:41)
[2017-12-25] MEDS: 0.9% Normal Saline 1,000 ML 75 ML IV ×2 (09:25→23:05)
[2017-12-25] MEDS: Cyanocobalamin 500 MCG Tablet 1000 MCG PO (09:26)
[2017-12-25] MEDS: Folic Acid 1 MG Tablet PO (09:26)
[2017-12-25] MEDS: Multivitamins,Ther W-Minerals Tablet 1 TABLET PO (09:26)
[2017-12-25] MEDS: Thiamine Hydrochloride 100 MG Tablet PO ×2 (09:26→15:07)
[2017-12-25] MEDS: Escitalopram Oxalate 10 MG Tablet PO (09:27)
[2017-12-25] MEDS: Furosemide 40 MG Tablet PO (09:27)
--- NOTE | 2017-12-25 10:08 | CASEMGMT ---
Social Work Note Face to face with the pt to discuss discharge planning. Introduced self and role at [facility]. The pt reports she is deaf, but can reads lips and requests that this insurance underwriter sales speak slowly. Discuss discharge options and pt is in agreement for placement at [facility] for short term rehab, until she recovers and can return to [facility] at [facility]. Pt made aware that SW is available if needed. Faxed initial referral to Ilene at [facility]. Margo Key, BIOINFORMATICS SPECIALIST, ADMINISTRATION [facility]
--- NOTE | 2017-12-25 13:36 | CHAPLAIN ---
Type of Pastoral Visit _x__ Initial Visit ___ Follow-up Visit ___ On-call Visit ___ General Patient Visit ___ Spiritual Assessment ___ Family Conference ___ Bereavement ___ Rapid Response ___ Code Blue ___ Other (describe below) Pastoral Care Referral From _x__ Patient ___ Family ___ Nurse ___ Physician ___ Outreach Worker ___ Coal Sample Tester ___ Other (describe below) Sacrament/Intervention _x__ Active listening ___ Anointing ___ Oriental Orthodox ___ Bereavement ___ Communion ___ Adilene exploration ___ _x__ Life review _x__ Prayer ___ Reconciliation ___ Sacrament of Sick _x__ Supportive presence ___ Wedding ___ Other (describe below) Pastoral Comments
--- NOTE | 2017-12-25 16:52 | PCM.PN.HOSP ---
Subjective: CC: Status post fall with right leg injury This is a 71-year-old female with multiple medical problems who presented with right leg pain and found to have acute Right distal tibia fracture, thi is fairly well aligned nonoperative management has been recommended. Vitals/I&O's: Vital Signs Temp Pulse Resp BP Pulse Ox 97.3 F L 81 18 119/66 97 12/25/17 15:05 12/25/17 15:30 12/25/17 15:30 12/25/17 15:05 12/25/17 15:05 Oxygen Flow Rate 3 Oxygen Delivery Method Room Air Weight: 102.512 kg Body Mass Index (BMI) 41.3 Intake and Output for Last 24 Hours 12/23/17 12/24/17 12/25/17 23:59 23:59 23:59 Intake Total 2577 / 2577 Output Total 1000 / 1000 Balance 1577 / 1577 General: Alert, Oriented x3 Neck: Supple, No JVD Lungs: Clear to auscultation, Short of Breath Cardiovascular: Regular rate, Normal S1, Normal S2 Abdomen: Bowel Sounds Present Musculoskeletal: - Laboratory Results 12/24/17 18:58: Ethyl Alcohol < 3.0 12/24/17 18:58: Vit D 1,25-Dihydroxy Pending Current Medications Acetaminophen (Tylenol) 650 mg PO Q6H PRN PRN PRN Reason: PAIN Albuterol Sulfate (Ventolin Aerosols) 2.5 mg INHALATION Q6H PRN PRN PRN Reason: SOB &/OR WHEEZING Albuterol/Ipratropium (Duoneb) 3 ml INHALATION Q4HWA.RT [facility] Last Admin: 12/25/17 14:52 Dose: 3 ml Budesonide (Pulmicort Aerosol) 0.5 mg INHALATION Q12H.RT [facility] Last Admin: 12/25/17 07:24 Dose: 0.5 mg Buspirone HCl (Buspirone Hcl) 15 mg PO BID [facility] Last Admin: 12/25/17 09:27 Dose: 15 mg Cyanocobalamin (Vitamin B12) 1,000 mcg PO DAILY@0800 [facility] Last Admin: 12/25/17 09:26 Dose: 1,000 mcg Enoxaparin Sodium (Lovenox) 40 mg SC DAILY@0600 [facility] Escitalopram Oxalate (Lexapro) 10 mg PO DAILY [facility] Last Admin: 12/25/17 09:27 Dose: 10 mg Folic Acid (Folic Acid) 1 mg PO DAILY [facility] Last Admin: 12/25/17 09:26 Dose: 1 mg Furosemide (Lasix) 40 mg PO DAILY [facility] Last Admin: 12/25/17 09:27 Dose: 40 mg Sodium Chloride () 1,000 mls @ 75 mls/hr IV .[id number] [facility] Last Admin: 12/25/17 09:25 Dose: 75 mls/hr Lactobacillus Acidophilus (Acidophilus) 1 tablet PO DAILY [facility] Last Admin: 12/25/17 09:27 Dose: 1 tablet Lorazepam (Ativan) 2 mg PO Q2H PRN PRN; Protocol PRN Reason: CIWA score > 8 but <15 Lorazepam (Ativan) 2 mg IV Q2H PRN PRN; Protocol PRN Reason: CIWA score > 8 but <15 Lorazepam (Ativan) 2 mg PO UD PRN; Protocol PRN Reason: CIWA score >/=15. Lorazepam (Ativan) 2 mg IV UD PRN; Protocol PRN Reason: CIWA score >/=15. Morphine Sulfate (Morphine) 1 mg IV Q4H PRN PRN PRN Reason: SEVERE PAIN (6-10/10) Multivitamins/Minerals ([facility]itamin With Minerals) [facility] Admin: 12/25/17 09:26 Dose: 1 tablet Nutritional Formula (Lactose Free) (Ensure Enlive) 120 ml PO 4X/DAY [facility] Last Admin: 12/25/17 15:07 Dose: 120 ml Ondansetron HCl (Zofran) 4 mg IV Q8H PRN PRN PRN Reason: NAUSEA/VOMITING Sodium Chloride () 5 - 30 ml IV UD PRN PRN Reason: SALINE FLUSH Thiamine HCl (Vitamin B1) 100 mg PO BIDCM [facility] Stop: 12/27/17 17:01 Last Admin: 12/25/17 15:07 Dose: 100 mg Tramadol HCl (Ultram (G)) 50 mg PO Q6H PRN PRN PRN Reason: MODERATE PAIN (4-5/10) Last Admin: 12/25/17 11:19 Dose: 50 mg Trazodone HCl (Desyrel) 25 mg PO QHS [facility] Last Admin: 12/24/17 21:08 Dose: 25 mg Assessment/Plan 1. Acute Right distal tibia fracture, fairly well aligned; nonoperative management recommended at this time, will optimize pain control. 2. Right sided pleural effusion; we will obtain CT scan of the chest for further evaluation. 3. COPD; continue bronchodilators. 4. Acute on chronic respiratory failure with hypoxia; continue on supplemental oxygen and wean as tolerated. hypoxia-suspected secondary to #1/#2. Patient states she wears oxygen intermittently at assisted living facility. Continue supplemental oxygen to maintain O2 at or above 90%. 5. History of nonischemic cardiomyopathy; given her pleural effusion, we will place her on IV Lasix. 6. Hypertension; this is controlled. 7. Hyperlipidemia-not on a statin. 8. Nicotine dependency; continue on nicotine transdermal patch. 11. Anxiety/Depression; stable. 12. Remote history of ovarian cancer; status post hysterectomy in 1981, stable. 14. DVT ppx with Lovenox. Code Visit Inpatient E&M: 58608 Subs Hosp L3
[2017-12-25] MEDS: traZODone 50 MG Tablet 25 MG PO (21:52)
[2017-12-26] VITALS (16 sets, daily range): BP systolic 110–116; BP diastolic 64–76; PULSE 88–117; RESP 16–21; TEMP 36.4–37; O2SAT 91–96
[2017-12-26] MEDS: Enoxaparin 40 MG/0.4 ML Syringe SC (05:54)
--- NOTE | 2017-12-26 06:01 | CT_ITS ---
STUDY: CT CHEST WITH CONTRAST REASON FOR EXAM: Female, 72 years old. Pleural effusions. History of ovarian carcinoma. RADIATION DOSAGE (If Supplied By Facility): CTDIvol = ( 16.56 ) mGy, DLP = ( 685.50 ) mGycm TECHNIQUE: Transaxial imaging was performed following intravenous administration of 100ML ml of Isovue 300 contrast material. Multiplanar coronal and sagittal images were reformatted. Individualized dose optimization techniques were used for this CT. COMPARISON: Comparison is made with prior CT scan of the thorax dated March 2017. FINDINGS: Small to moderate size right pleural effusion with underlying infiltration and/or atelectasis in the right lower lobe. There is no demonstrated pleural abnormality. There is moderate cardiac enlargement. Normal mediastinum. Normal hilar regions. Normal enhanced pulmonary arteries. There is atherosclerotic calcification of the aortic arch . There are multi-level degenerative changes of the thoracic spine. Stable loss of identity T12 vertebrae. There is no demonstrated abnormality of the visualized upper abdomen. CT/Chest WITH Contrast IMPRESSION: Small to moderate right pleural effusion with underlying right lower lobe infiltration and/or atelectasis. Follow-up is recommended. Electronically Signed: Antoni Meier MD at 14:38 EST Tel [phone], Service support ,
[2017-12-26] MEDS: Ipratropium/Albuterol Sulfate 3 ML AMPUL.NEB INHALATION ×4 (07:12→19:59)
[2017-12-26] MEDS: Budesonide Respules 0.5 MG/2 ML AMPUL.NEB. INHALATION ×2 (07:12→19:59)
--- NOTE | 2017-12-26 07:46 | PN.ORTHO_ITS ---
Subjective: Patient continues with adequate pain control right ankle. No adverse events overnight. She has continued in the short leg splint. She is still happy with the decision for nonoperative treatment. Objective: Patient is alert and oriented ?3. No acute distress at rest. Breathing easily without respiratory distress. Inspection of right lower extremity reveals an intact short leg fiberglass cast without evidence of pressure points or breakdown. Patient is able to flex and extend the toes. Sensation is intact to light touch. - Physical Exam Vital Signs Temp Pulse Resp BP Pulse Ox 98.1 F 90 20 H 111/70 94 12/26/17 02:08 12/26/17 04:03 12/26/17 02:08 12/26/17 02:08 12/26/17 02:08 Oxygen Flow Rate 3 Oxygen Delivery Method Nasal Cannula Weight: 102.512 kg Body Mass Index (BMI) 41.3 Intake and Output for Last 24 Hours 12/24/17 12/25/17 12/26/17 23:59 23:59 23:59 Intake Total 2577 / 2577 1778 / 1778 Output Total 1400 / 1400 200 / 200 Balance 1177 / 1177 1578 / 1578 Assessment/Plan Continue management of multiple comorbidities with hospitalist. With regards to the right ankle fracture she remained stable. We will plan for continuation with nonoperative measures. She will continue in the short leg fiberglass splint. Nonweightbearing right lower extremity with a walker. Ice and elevate as needed. Follow-up in the office with [facility] 7-10 days with x- ray.
[2017-12-26] MEDS: Cyanocobalamin 500 MCG Tablet 1000 MCG PO (08:27)
[2017-12-26] MEDS: Thiamine Hydrochloride 100 MG Tablet PO ×2 (08:28→23:06)
[2017-12-26] MEDS: Multivitamins,Ther W-Minerals Tablet 1 TABLET PO (08:28)
[2017-12-26] MEDS: LORazepam 1 MG Tablet PO (09:19)
[2017-12-26] MEDS: Escitalopram Oxalate 10 MG Tablet PO (10:11)
[2017-12-26] MEDS: Folic Acid 1 MG Tablet PO (10:11)
[2017-12-26] MEDS: Furosemide 40 MG Tablet PO (10:11)
--- NOTE | 2017-12-26 11:12 | CASEMGMT ---
Social Work Note Updated PT/OT notes faxed to [facility] for review. SW to continue to follow and assist with discharge planning. Margo Key, VETERINARIAN LABORATORY ANIMAL CARE, LPN CARE MANAGER
--- NOTE | 2017-12-26 15:24 | CASEMGMT ---
Addendum entered by Margo Key 12/26/17 15:59: Social Work Note Call from physician stating that he anticipated discharge tomorrow, 12/27. Faxed clinicals to [facility] to update and request pre-cert for tomorrow. [facility] that [facility]. [facility]. SERGIO Woo, MANUFACTURING TECHNOLOGIST Original Note: Social Work Note Faxed updated clinicals to Ilene. Ilene met with pt and HCPOA at [facility]. They are able to accept once pre-cert is obtained and pt is deemed medically stable. CT results are back, SW paged physician to inquire if pt would be ready for discharge today. Will submit to insurance once anticipated discharge date is determined. SERGIO Woo, MANUFACTURING TECHNOLOGIST
--- NOTE | 2017-12-26 15:31 | PN_ITS ---
Subjective: CC: Status post fall with right leg injury, shortness of breath. This is a 71-year-old female with multiple medical problems who presented with right leg pain and found to have acute Right distal tibia fracture, this is fairly well aligned , nonoperative management has been recommended. Vitals/I&O's: Vital Signs Temp Pulse Resp BP Pulse Ox 97.5 F L 94 16 110/70 93 12/26/17 14:02 12/26/17 14:39 12/26/17 14:39 12/26/17 14:02 12/26/17 14:02 Oxygen Flow Rate 3 Oxygen Delivery Method Nasal Cannula Weight: 102.512 kg Body Mass Index (BMI) 41.3 Intake and Output for Last 24 Hours 12/24/17 12/25/17 12/26/17 23:59 23:59 23:59 Intake Total 2577 / 2577 2578 / 2578 Output Total 1400 / 1400 200 / 200 Balance 1177 / 1177 2378 / 2378 Musculoskeletal: - - Right distal tibia fracture Current Medications Acetaminophen (Tylenol) 650 mg PO Q6H PRN PRN PRN Reason: PAIN Albuterol Sulfate (Ventolin Aerosols) 2.5 mg INHALATION Q6H PRN PRN PRN Reason: SOB &/OR WHEEZING Albuterol/Ipratropium (Duoneb) 3 ml INHALATION Q4HWA.RT [facility] Last Admin: 12/26/17 14:30 Dose: 3 ml Budesonide (Pulmicort Aerosol) 0.5 mg INHALATION Q12H.RT [facility] Last Admin: 12/26/17 07:12 Dose: 0.5 mg Buspirone HCl (Buspirone Hcl) 15 mg PO BID [facility] Last Admin: 12/26/17 10:11 Dose: 15 mg Cyanocobalamin (Vitamin B12) 1,000 mcg PO DAILY@0800 [facility] Last Admin: 12/26/17 08:27 Dose: 1,000 mcg Enoxaparin Sodium (Lovenox) 40 mg SC DAILY@0600 [facility] Last Admin: 12/26/17 05:54 Dose: 40 mg Escitalopram Oxalate (Lexapro) 10 mg PO DAILY [facility] Last Admin: 12/26/17 10:11 Dose: 10 mg Folic Acid (Folic Acid) 1 mg PO DAILY [facility] Last Admin: 12/26/17 10:11 Dose: 1 mg Furosemide (Lasix) 20 mg IV BID@1000,1800 [facility] Sodium Chloride () 1,000 mls @ 75 mls/hr IV .[id number] [facility] Last Admin: 12/25/17 23:05 Dose: 75 mls/hr Lactobacillus Acidophilus (Acidophilus) 1 tablet PO DAILY [facility] Last Admin: 12/26/17 10:11 Dose: 1 tablet Lorazepam (Ativan) 2 mg PO Q2H PRN PRN; Protocol PRN Reason: CIWA score > 8 but <15 Lorazepam (Ativan) 2 mg IV Q2H PRN PRN; Protocol PRN Reason: CIWA score > 8 but <15 Lorazepam (Ativan) 2 mg PO UD PRN; Protocol PRN Reason: CIWA score >/=15. Lorazepam (Ativan) 2 mg IV UD PRN; Protocol PRN Reason: CIWA score >/=15. Morphine Sulfate (Morphine) 1 mg IV Q4H PRN PRN PRN Reason: SEVERE PAIN (6-10/10) Multivitamins/Minerals (Multivitamin With Minerals) [facility] Last Admin: 12/26/17 08:28 Dose: 1 tablet Nutritional Formula (Lactose Free) (Ensure Enlive) 120 ml PO 4X/DAY [facility] Last Admin: 12/26/17 13:59 Dose: 120 ml Ondansetron HCl (Zofran) 4 mg IV Q8H PRN PRN PRN Reason: NAUSEA/VOMITING Sodium Chloride () 5 - 30 ml IV UD PRN PRN Reason: SALINE FLUSH Thiamine HCl (Vitamin B1) 100 [facility] Stop: 12/27/17 17:01 Last Admin: 12/26/17 08:28 Dose: 100 mg Tramadol HCl (Ultram (G)) 50 mg PO Q6H PRN PRN PRN Reason: MODERATE PAIN (4-5/10) Last Admin: 12/26/17 09:18 Dose: 50 mg Trazodone HCl (Desyrel) 25 mg PO QHS [facility] Last Admin: 12/25/17 21:52 Dose: 25 mg Assessment/Plan 1. Acute Right distal tibia fracture, fairly well aligned; nonoperative management recommended at this time, will optimize pain control. 2. Right sided pleural effusion; we will treat with IV Lasix and antibiotics repeat imaging in 3-4 weeks 3. COPD without acute exacerbation; continue bronchodilators. 4. Acute on chronic respiratory failure with hypoxia; continue on supplemental oxygen and wean as tolerated. 5. History of nonischemic cardiomyopathy; given her pleural effusion, we will place her on IV Lasix. 6. Hypertension; this is controlled. 7. Hyperlipidemia-not on a statin. 8. Nicotine dependency; continue on nicotine transdermal patch. 11. Anxiety/Depression; stable. 12. Remote history of ovarian cancer; status post hysterectomy in 1981, stable. 14. DVT ppx with Lovenox. 15; discharge planning to [facility].
[2017-12-26] MEDS: 0.9% Normal Saline 1,000 ML 75 ML IV (18:13)
[2017-12-26] MEDS: Furosemide 20 MG/2 ML VIAL IV (18:14)
[2017-12-26] MEDS: 0.9% NaCl Peripheral Flush Adult/Peds IV (18:15)
[2017-12-27] VITALS (10 sets, daily range): BP systolic 103–122; BP diastolic 65–80; PULSE 88–109; RESP 18–20; TEMP 36.4–36.7; O2SAT 93–98
[2017-12-27] MEDS: Enoxaparin 40 MG/0.4 ML Syringe SC (06:20)
[2017-12-27] MEDS: Budesonide Respules 0.5 MG/2 ML AMPUL.NEB. INHALATION (07:07)
[2017-12-27] MEDS: Ipratropium/Albuterol Sulfate 3 ML AMPUL.NEB INHALATION ×3 (07:07→15:14)
[2017-12-27] MEDS: Thiamine Hydrochloride 100 MG Tablet PO (08:18)
[2017-12-27] MEDS: Multivitamins,Ther W-Minerals Tablet 1 TABLET PO (08:18)
[2017-12-27] MEDS: Escitalopram Oxalate 10 MG Tablet PO (08:19)
[2017-12-27] MEDS: Folic Acid 1 MG Tablet PO (08:19)
[2017-12-27] MEDS: Cyanocobalamin 500 MCG Tablet 1000 MCG PO (08:19)
[2017-12-27] MEDS: Furosemide 20 MG/2 ML VIAL IV (08:20)
[2017-12-27] MEDS: 0.9% Normal Saline 1,000 ML 75 ML IV (08:24)
--- NOTE | 2017-12-27 08:52 | CASEMGMT ---
Social Work Note Pre-cert obtained for placement this date. Will update physician during rounds. Anticipate discharge today. Plan: [facility] for rehabilitation. Margo Key, TOUR OPERATOR, CENTER MANAGER
--- NOTE | 2017-12-27 11:54 | NURSING ---
Family member in room, asking to talk to social services technician, states that they would rather have pt moved to [facility] d/t family member works in nursing facility. Talked to Tabby social services technician stated family in room, asking for pt to instead be moved to [facility].
--- NOTE | 2017-12-27 12:04 | CASEMGMT ---
Social Work Note Face to face with pt and friend, David, per their request. David Pittman, states that he and 3 others are the pt's adopted children so to speak and all assist in taking care of her. States that Jeff silverio [facility] is an program or project administrator at [facility] [employer] [facility] and they discussed with the pt and she would now prefer to go there. Confirm with pt that she is agreeable as she is alert and oriented x3. Inform that SW will need to confirm with [facility] that they accept her insurance, are able to accept her today and confirm with insurance that it is approved to go to [facility], not [facility]. Placed call to Laura at [facility]. States she will review referral, and initial referral faxed. SW to continue to follow and assist with discharge planning. Plan: [facility] pending acceptance. Margo Key, MANUFACTURING EXECUTIVE, DIRECTOR OUTCOMES
--- NOTE | 2017-12-27 13:19 | CASEMGMT ---
Social Work Note Call from Laura stating that they can accept the pt. Will fax evaluations to [facility] so they are aware that pt switched facilities. Notified pt and David. Waiting on physician to discharge. Margo Key, SPECIAL EVENTS DIRECTOR, SENIOR ANIMATOR
--- NOTE | 2017-12-27 14:16 | PCM.TXEXTCAR ---
- Diet 12/24/17 17:59 Diet: Regular Diet Is pt able to select menu?: Yes - Wound(s) lt mid arm Wound Type: Skin Tear left hip Wound Type: old healed incision - Therapies Weight Bearing: Non weight bearing Physical Therapy: Eval and Treat Occupational Therapy: Eval and Treat - Allergies/Procedures Done in Hospital Allergies/Adverse Reactions: Allergies acetaminophen Allergy (Verified 12/24/17 15:53) Unknown ibuprofen Allergy (Verified 12/24/17 15:53) Swelling Penicillins Allergy (Verified 12/24/17 15:53) Swelling - Type of Care/Length of Stay Estimated LOS: Convalescent Care Less Than 30 days Type of Care Needed: Skilled Rehab Potential: Good Prognosis: Fair - Additional Orders/Day of Discharge H&P will serve as current which was dated: 12/24/17 Day of Discharge: 12/27/17 - Dietary and Speech Recommendations Dietitian Recommendations/Changes: Recommend continue Regular diet provided poor PO intake currently. Will add Ensure Enlive on medpass routine for additional nutrition if consumed. - Follow Up Care Primary Care Physician: Garret Castle MD [Primary Care Provider] - Within 1 Week
--- NOTE | 2017-12-27 14:24 | PCM.DC.SUM ---
Discharge Date and Diagnosis Date of Admission: 12/24/17 Date of Discharge: 12/27/17 - Secondary Discharge Diagnosis Chronic Problems Anxiety (Chronic) Depression (Chronic) Deafness (Chronic) Cardiomyopathy (Chronic) NON ISCHEMIC CARDIOMYOPATHY Hypertension (Chronic) Degenerative joint disease (DJD) of lumbar spine (Chronic) Alcohol abuse (Chronic) PATIENT STATES SHE DRINKS 1- 1 1/2 LITERS OF WINE NITELY-THERE WAS NO EVIDENCE OF ANXIETY OR DT'S DURING HER HOSPITAL STAY Tobacco consumption (Chronic) PATIENT SMOKES 1- 1 1/2 PACKS CIGARETTES PER DAY-REFUSED NICOTINE PATCH AND HAD NO SIDE EFFECTS FROM BEING OFF TOBACCO WHILE IN HOSPITAL Hyperlipidemia (Chronic) Hospital Course and Treatment Operations: None Summary of Care Provided: This is a 71-year-old female with multiple medical problems who presented with right leg pain and found to have acute Right distal tibia fracture, this is fairly well aligned , nonoperative management was been recommended by orthopedics. Right lower extremity is now immobilized in a cast. her pain is under control. Patient is stable for discharge to [facility]. 1. Acute Right distal tibia fracture, fairly well aligned; nonoperative management recommended at this time, will optimize pain control. Follow-up with orthopedics as an outpatient. DVT prophylaxis with Aspirin. 2. Right sided pleural effusion; we treated with IV Lasix and antibiotics, repeat imaging in 3-4 weeks. 3. COPD without acute exacerbation; she is on bronchodilators. 4. Acute on chronic respiratory failure with hypoxia; continue on supplemental oxygen and wean as tolerated. 5. History of nonischemic cardiomyopathy; stable. 6. Hypertension; this is controlled. 7. Hyperlipidemia-not on a statin. 8. Nicotine dependency; he is recommended to quit smoking. 11. Anxiety/Depression; stable. 12. Remote history of ovarian cancer; status post hysterectomy in 1981, stable. 13. disposition; discharge to [facility] to continue post acute care and rehabilitation. Exam at the time of discharge; vital signs were stable. she was alert and oriented to time place and person. she did not appear to be any form of distress. S1 and S2 heard no murmur or gallop Lung exam was clear to auscultation with no adventitious sounds. Abdomen was soft nontender with normal bowel sounds. extremity exam did not reveal any edema, palpable pulses bilaterally. Neurologic exam was grossly intact. Ms; right leg cast. Discharge Diet: No Restrictions Home Medications: Medications to take at Discharge Buspirone HCl 15 mg PO BID 12/24/17 Carbamide Peroxide [Ear Wax Removal] 3 drop OT QHS 12/24/17 Cyanocobalamin [Vitamin B12] 1,000 mcg PO DAILY@0800 12/24/17 Escitalopram Oxalate [Lexapro] 10 mg PO DAILY 12/24/17 Fluticasone/Vilanterol [Breo Ellipta 100-25 Mcg INH] 1 each IH DAILY 12/24/17 Furosemide 40 mg PO DAILY 12/24/17 Ipratropium/Albuterol Sulfate [Duoneb] 3 ml INHALATION Q4H PRN PRN 12/24/17 Lactobacillus Acidophilus [Acidophilus] 1 each PO DAILY 12/24/17 Melatonin 1 mg PO QHS 12/24/17 Multivitamin [Animal Shapes] 1 each PO DAILY 12/24/17 Trazodone HCl 25 mg PO QHS 12/24/17 Aspirin 325 mg PO DAILY@0800 30 Days tablet 12/27/17 Cyanocobalamin [Vitamin B12] 1,000 mcg PO DAILY@0800 tablet 12/27/17 Lactobacillus Acidophilus [Acidophilus] 1 tablet PO DAILY tablet 12/27/17 Levofloxacin [Levaquin] 750 mg PO DAILY #5 tab 12/27/17 Lorazepam [Ativan] 0.25 mg PO TID PRN PRN #8 tab 12/27/17 Pantoprazole Sodium [Protonix] 40 mg PO DAILY 30 Days tablet 12/27/17 TraMADol [Ultram] 50 mg PO Q6H PRN PRN #10 tab 12/27/17 Following Prescrptions Were Given to Patient: TraMADol [Ultram] 50 mg PO Q6H PRN PRN #10 tab PRN Reason: Moderate Pain (4-5/10) Aspirin 325 mg PO DAILY@0800 30 Days tablet Levofloxacin [Levaquin] 750 mg PO DAILY #5 tab Lorazepam [Ativan] 0.25 mg PO TID PRN PRN #8 tab PRN Reason: Anxiety Pantoprazole Sodium [Protonix] 40 mg PO DAILY 30 Days tablet Primary Care Physician: Garret Castle MD [Primary Care Provider] - Within 1 Week Disposition: Home Patient Condition:: Good Meaningful Use Info Meaningful Use Diagnoses (Choose all that apply): None applicable Code Visit Inpatient E&M: 51666 [facility]
--- NOTE | 2017-12-27 15:01 | CASEMGMT ---
Social Work Note Convalescent 7000 submitted in the [facility]ENS. Copy on chart and SNF packet. Transfer summary, medlist and scripts faxed to [facility]. Copies on chart and originals in SNF packet. Transportation setup through [facility] via cot at 1530. Notified SNF, RN, pt and pt's friend, David, per their request. Plan: [facility] for rehabilitation. Convalescent 7000 submitted. Transport setup through [facility] via cot at 1530. Margo Key, INCLUSION SPECIALIST, DRY HEAT CABINET ATTENDANT
--- NOTE | 2017-12-27 15:11 | NURSING ---
call placed to [facility] and report given to yao
[2017-12-27 15:54] LABS: Vitamin D 1,25-Dihydroxy 46.9 pg/mL (19.9-79.3)
== END 2017-12-27 15:35 | disposition skilled nursing facility (03) | DRG 562 ==
LOC: ED 16:09 → MS3 17:25
PROVIDERS: Nurse Practitioner Family; Admitting Provider Internal Medicine; Emergency Provider Emergency Medicine; Family Provider Family Medicine; PCP Family Medicine; Visit Provider Internal Medicine
DX: S82.391A Other fracture of lower end of right tibia, initial encounter for closed fracture (principal); J96.21 Acute and chronic respiratory failure with hypoxia; I42.9 Cardiomyopathy, unspecified; J44.9 Chronic obstructive pulmonary disease, unspecified; Z68.41 Body mass index [BMI] 40.0-44.9, adult; W18.11XA Fall from or off toilet without subsequent striking against object, initial encounter; F32.9 Major depressive disorder, single episode, unspecified; H91.90 Unspecified hearing loss, unspecified ear; Y92.091 Bathroom in other non-institutional residence as the place of occurrence of the external cause; F41.9 Anxiety disorder, unspecified; I10 Essential (primary) hypertension; M51.36 Other intervertebral disc degeneration, lumbar region; F10.10 Alcohol abuse, uncomplicated; F17.210 Nicotine dependence, cigarettes, uncomplicated; E78.5 Hyperlipidemia, unspecified; Z91.81 History of falling; E66.9 Obesity, unspecified; Z90.710 Acquired absence of both cervix and uterus; Z85.43 Personal history of malignant neoplasm of ovary
CPT/HCPCS: 71045; 71260; 73610; 80048; 80320; 82652; 85025; 85610; 93005; 94640; 97110; 97162; 97166; 97530; 97802; 99284; 99406; J7030; Q9967; A4216; G0480; J1940

== ENCOUNTER → 2018-02-27 15:16 | Outpatient (CLI) | payer MEDICARE, SELFPAY ==
[2018-02-27 17:52] LABS: Absolute Lymphocyte Count 0.94 X10^3/ul (0.83-4.51); Absolute Neutrophil Count 5.8 X10^3/uL (2.0-7.7); Basophil# 0.03 X10^3/uL; Basophil% 0.4 % (0-1); Eosinophil# 0.15 X10^3/uL; Hematocrit 41.2 % (37-47); Hemoglobin 12.4 g/dl (12.0-15.0); Lymphocyte # 0.94 X10^3/ul (4.0); Lymphocyte % 12.8 % (19-41); Mean Corp Hgb Conc 30.1 g/gl (32-36); Mean Corpuscular Hgb 28.9 pg (27.0-32.0); Mean Platelet Vol. 11.5 fl (6.2-12.0); Monocyte# 0.42 X10^3/uL; Monocyte% 5.7 % (0-10); Neutrophil # 5.79 X10^3/uL (2.7-7.7); Platelet Count 171 K/mm3 (150-450); RBC Distribution Width CV 18.3 % (11.6-14.6); RBC Distribution Width SD 61.8 fl (35.1-43.9); Red Blood Count 4.29 M/mm3 (4.2-5.4); White Blood Count 7.3 K/mm3 (4.4-11.0)
[2018-02-27 18:00] LABS: POSITIVE COUNT NO; POSITIVE DIFFERENTIAL NO; POSITIVE MORPHOLOGY NO
[2018-02-27 18:24] LABS: ALB/GLOB Ratio 0.8 RATIO (0.9-2.4); AST(SGOT) 23 U/L (15-37); Alanine Aminotransfer ALT/SGPT 20 U/L (13-56); Albumin, Serum 3.3 g/dL (3.2-5.0); Alkaline Phosphatase 91 U/L (45-117); Anion Gap 11 (5-15); BUN 11 mg/dL (7-18); BUN/Creat Ratio 16.6 RATIO (10-20); Calcium,Total 9.3 mg/dL (8.5-10.1); Chloride 103 mmol/L (98-107); Creatinine, Serum 0.66 mg/dL (0.55-1.02); EST Glomerular Filtration Rate 93 mL/min (>60); Est Glom Filt Rate - Afr Amer 112 mL/min (>60); Glucose 85 mg/dL (74-106); Potassium 4.5 mmol/L (3.5-5.1); Protein, Total 7.3 g/dL (6.4-8.2); Sodium Level 142 mmol/L (136-145)
== END ==
PROVIDERS: Family Provider Family Medicine; PCP Family Medicine; Visit Provider Family Medicine
DX: I50.9 Heart failure, unspecified (principal)
CPT/HCPCS: 36415; 80053; 84443; 85025

== ENCOUNTER → 2018-03-20 07:03 | Outpatient (CLI) | payer MEDICARE, SELFPAY ==
--- NOTE | 2018-03-21 06:07 | PFTCOMP ---
COMPLETE PULMONARY FUNCTION TEST INTERPRETATION Brief HPI: Patient is a 72 year old female, currently under the care of Dr. Kidd, who presents to [facility] for complete pulmonary function tests secondary to diagnosis of COPD. Respiratory therapist reports good effort and reproducible results. Interpretation: Forced expiration spirometry shows a severe large airways obstructive ventilatory defect with an FEV1 of 44% predicted. There is no significant bronchodilator response by ATS criteria. Spirograms are of good quality and plateau slowly, indicating slowly emptying areas of the lungs. The respiratory flow volume loop shows decreased expiratory flow rates at all lung volumes consistent with airway obstruction. Lung volumes by body plethysmography show an elevated total lung capacity at 6.08 L, 132% predicted. FRC and RV are elevated out of proportion. Lung volume measurements are consistent with hyperinflation and air-trapping. Diffusion capacity by carbon monoxide is decreased at 55% predicted. The airway resistance is elevated. No previous pulmonary function tests were available for review. Impression: Irreversible severe large airways obstructive ventilatory defect with a symmetric reduction diffusing capacity, resulting in air trapping with hyperinflation. These findings are consistent with advanced COPD.
== END ==
PROVIDERS: Family Provider Family Medicine; PCP Family Medicine; Visit Provider Family Medicine
DX: J44.9 Chronic obstructive pulmonary disease, unspecified (principal)
CPT/HCPCS: 94060; 94726; 94729

== ENCOUNTER → 2018-03-27 14:30 | Outpatient (CLI) | payer MEDICARE, SELFPAY ==
--- NOTE | 2018-03-27 14:39 | CT_ITS ---
STUDY: CT CHEST WITHOUT CONTRAST REASON FOR EXAM: Female, 72 years old. Nodule RADIATION DOSAGE (If Supplied By Facility): CTDIvol = ( 19.09 ) mGy, DLP = ( 576.41 ) mGycm TECHNIQUE: Transaxial imaging was performed without the administration of intravenous contrast material. Individualized dose optimization techniques were used for this CT. COMPARISON: 12.26.17 FINDINGS: There is no pneumothorax. Right lower lobe pneumonia. There is no demonstrated pleural abnormality. There are calcifications of the coronary arteries. There is mild cardiac enlargement. There are multiple small lymph nodes within the mediastinum, which are normal in size and morphology most compatible with reactive lymph hyperplasia. Normal hilar regions. Normal pulmonary arteries. There is atherosclerotic calcification of the aortic arch with tortuosity and elongation of the aortic arch and descending thoracic aorta. Stable compression deformity of T12. There are multi-level degenerative changes of the thoracic spine. There is a hiatal hernia. Stable thickening of the right adrenal gland. 28 x 15 mm left adrenal gland mass. This is -3 Hounsfield units. 14 x 13 mm soft tissue nodule in the left flank. CT/Chest without Contrast IMPRESSION: Right lower lobe pneumonia. Resolution of the right pleural effusion. Stable left adrenal adenoma. Stable thickening of the right adrenal gland. Subcutaneous nodule is noted in the left flank. These may represent granulomas, sebaceous cyst, sequale of previous trauma. Electronically Signed: Aniceto Pearl MD at 17:16 EDT , Service support ,
== END ==
PROVIDERS: Family Provider Family Medicine; PCP Family Medicine; Visit Provider Family Medicine
DX: R91.1 Solitary pulmonary nodule (principal)
CPT/HCPCS: 71250

== ENCOUNTER → 2018-04-25 11:14 | Outpatient (CLI) | payer MEDICARE, SELFPAY ==
--- NOTE | 2018-04-25 11:17 | RAD_ITS ---
STUDY: X-RAY CHEST REASON FOR EXAM: Female, 73 years old. Pneumonia TECHNIQUE: PA and lateral views of the chest. COMPARISON: Previous study of December 25, 2017 FINDINGS: The lungs are clear and expanded. There is no demonstrated pleural abnormality. There is moderate cardiac enlargement. Normal mediastinum and fazal. Normal visualized pulmonary arteries. Normal visualized aortic arch and descending thoracic aorta. There is demineralization of the osseous structures. Normal visualized ribs, clavicles, and shoulders. There is no demonstrated abnormality of the visualized soft tissue structures of the upper abdomen. RAD/Chest PA and Lateral IMPRESSION: Moderate cardiomegaly. Generalized osteopenia. No acute cardiopulmonary disease process is seen. There has been interval resolution of right-sided effusion noted on the previous study. Electronically Signed: Taco Moore MD at 19:39 EDT , Service support ,
== END ==
PROVIDERS: Family Provider Family Medicine; PCP Family Medicine; Visit Provider Family Medicine
DX: J18.9 Pneumonia, unspecified organism (principal)
CPT/HCPCS: 71046

== ENCOUNTER → 2018-05-09 13:00 | Outpatient (CLI) | payer MEDICARE, SELFPAY ==
--- NOTE | 2018-05-09 13:03 | CDU_ITS ---
Reason For Study: carotid stenosis Rt. Velocities/BP Lt. Velocities/BP Prox CCA 85.6/19.3 cm/sec. Prox CCA 73.3/14.1 cm/sec. Mid CCA 60.4/16.4 cm/sec. Mid CCA 85.0/19.9 cm/sec. Dist CCA 55.1/19.3 cm/sec. Dist CCA 55.1/14.7 cm/sec. Prox ICA 46.8/14.5 cm/sec. Prox ICA 58.0/19.9 cm/sec. Mid ICA 95.3/31.8 cm/sec. Mid ICA 67.4/25.2 cm/sec. Dist ICA 64.0/15.7 cm/sec. Dist ICA 60.5/23.2 cm/sec. Rt. ICA/CCA = 1.6. Lt. ICA/CCA = .8. Prox ECA 72.1/16.4 cm/sec. Prox ECA 153/13.7 cm/sec. Rt. Vert. 19.3/7.86 cm/sec. Lt. Vert. 29.9/9.38 cm/sec. Right Extracranial There is intimal thickening but no significant atherosclerotic plaque noted in the right common carotid artery. There is heterogeneous, irregular atherosclerotic plaque noted in the right internal carotid artery. There is heterogeneous, irregular atherosclerotic plaque noted in the right external carotid artery. The right external carotid artery is tortuous. Antegrade flow is noted in the right vertebral artery. Left Extracranial There is intimal thickening but no significant atherosclerotic plaque noted in the left common carotid artery. There is heterogeneous, irregular atherosclerotic plaque noted in the left internal carotid artery. The left internal carotid artery is very tortuous. There is heterogeneous, irregular atherosclerotic plaque noted in the left external carotid artery. Antegrade flow is noted in the left vertebral artery. Procedure Carotid Duplex [id number]. The exam was diagnostic. Exam performed in department. Interpretation Summary Mild (<50%) stenosis right extracranial internal carotid. Mild (<50%) stenosis left extracranial internal carotid. Flow within the vertebral arteries is antegrade bilaterally. Ordering Physician: Garret Kidd Performed By: Kendell Estrada RVT
--- NOTE | 2018-05-09 13:26 | ECHOD_ITS ---
Reason For Study: CHF Procedure This was a 2D Doppler, Color Flow transthoracic echocardiogram. Patient scanned sitting up due to SOB. The study was technically difficult. Contrast injection was performed. Exam performed in department. Left Ventricle Severe segmental systolic dysfunction (see wall motion). The estimated ejection fraction is 25 %. Unable to assess diastolic dysfunction. Infero-Basal: Akinetic. Basal inferoseptal: Akinetic. Basal anteroseptal: Hypokinetic. Mid-Anterior : Hypokinetic. Mid-Lateral : Hypokinetic. Mid-Posterior: Akinetic. Mid-Inferior: Severely Hypokinetic. Mid-inferoseptal : Akinetic. Mid-anteroseptal : Severely Hypokinetic. Anterior Union : Akinetic. Inferior Union : Akinetic. Lateral Union : Akinetic. Septal Union : Severely Hypokinetic. Right Ventricle Normal RV size. Normal systolic function. Atria Normal left atrium. Normal right atrium. No doppler evidence for ASD. Mitral Valve There is mild mitral annular calcification. Normal mitral valve. Moderate (2+) eccentric mitral valve insufficiency. Tricuspid Valve The tricuspid valve is not well visualized. Trivial tricuspid valve insufficiency. Right ventricular systolic pressure estimated to be 57 mmHg. Aortic Valve The aortic valve is not well visualized. Pulmonic Valve The pulmonic valve is not well visualized. Great Vessels The aortic root is not well visualized. Pericardium/Pleural No pericardial effusion. Medication 22 gauge I.V. with prn adaptor inserted into right arm. Diluted definity 3ml given slow IV push to enhance endocardial definition. MMode/2D Measurements & Calculations Ao root diam: 3.2 cm LA dimension: 3.7 cm Doppler Measurements & Calculations MV E max shaq: 96.1 cm/sec Lat Peak E' Shaq: 10.9 cm/sec Med Peak E' Shaq: 8.7 cm/sec MV A max shaq: 108.0 cm/sec E/E' lat: 8.8 E/E' med: 11.0 MV E/A: 0.89 Ao V2 max: 119.2 cm/sec LV V1 max: 71.8 cm/sec PA V2 max: 89.6 cm/sec Ao max P.7 mmHg LV V1 max P.1 mmHg TR max shaq: 323.6 cm/sec TR max P.9 mmHg Interpretation Summary The study was technically difficult. Contrast injection was performed. Severe segmental systolic dysfunction (see wall motion). The estimated ejection fraction is 25 %. There is mild mitral annular calcification. Moderate (2+) eccentric mitral valve insufficiency. Trivial tricuspid valve insufficiency. Right ventricular systolic pressure estimated to be 57 mmHg c/w pulmonary hypertension. Unable to assess diastolic dysfunction. Ordering Physician: Garret Kidd Referring Physician: Garret Castle M.D. Performed By: Christina Zamudio RDCS
== END ==
PROVIDERS: Family Provider Family Medicine; PCP Family Medicine; Visit Provider Family Medicine
DX: I34.0 Nonrheumatic mitral (valve) insufficiency (principal); I65.23 Occlusion and stenosis of bilateral carotid arteries
CPT/HCPCS: 93306; 93880; Q9957; A4216

== ENCOUNTER → 2018-07-17 14:35 | Outpatient (CLI) | payer MEDICARE, SELFPAY ==
--- NOTE | 2018-07-17 14:40 | RAD_ITS ---
STUDY: X-RAY RIGHT FOOT, 2nd TOE REASON FOR EXAM: Female, 73 years old. Second toe ulcer TECHNIQUE: 3 view(s) of the toe were obtained. COMPARISON: None. FINDINGS: The bones are diffusely demineralized. There is no demonstrated fracture or suspicious erosive lesion. There is also no demonstrated soft tissue swelling or subcutaneous emphysema. However, a subtle fracture or erosive lesion could easily be overlooked due to the profound osteopenia. If ulcer or fracture is a strong clinical concern, recommend further evaluation with cross-sectional imaging. RAD/Toe(s) Min 2 Views IMPRESSION: Diffuse osteopenia without demonstrated fracture or erosive lesion. Electronically Signed: Prabhakar Harmon MD at 15:37 EDT , Service support ,
== END ==
PROVIDERS: Family Provider Family Medicine; PCP Family Medicine; Visit Provider Family Medicine
DX: M79.89 Other specified soft tissue disorders (principal); M79.674 Pain in right toe(s)
CPT/HCPCS: 73660

== ENCOUNTER → 2018-07-24 14:07 | Outpatient (CLI) | payer MEDICARE, SELFPAY ==
[2018-07-24 15:53] LABS: Absolute Lymphocyte Count 0.68 X10^3/ul (0.83-4.51); Absolute Neutrophil Count 4.8 X10^3/uL (2.0-7.7); Basophil# 0.03 X10^3/uL; Basophil% 0.5 % (0-1); Eosinophil# 0.14 X10^3/uL; Eosinophils% 2.3 % (0-5); Hematocrit 42.3 % (37-47); Lymphocyte # 0.68 X10^3/ul (4.0); Lymphocyte % 11.2 % (19-41); Mean Corp Hgb Conc 30.7 g/gl (32-36); Mean Corpuscular Hgb 28.7 pg (27.0-32.0); Mean Corpuscular Volume 93.4 fL (81-99); Mean Platelet Vol. 10.6 fl (6.2-12.0); Monocyte% 6.6 % (0-10); Neutrophil % 79.2 % (47-70); Platelet Count 168 K/mm3 (150-450); RBC Distribution Width CV 16.9 % (11.6-14.6); RBC Distribution Width SD 55.1 fl (35.1-43.9); Red Blood Count 4.53 M/mm3 (4.2-5.4); White Blood Count 6.1 K/mm3 (4.4-11.0)
[2018-07-24 15:58] LABS: POSITIVE COUNT NO; POSITIVE DIFFERENTIAL NO; POSITIVE MORPHOLOGY NO
[2018-07-24 16:17] LABS: ALB/GLOB Ratio 0.9 RATIO (0.9-2.4); AST(SGOT) 20 U/L (15-37); Alanine Aminotransfer ALT/SGPT 23 U/L (13-56); Albumin, Serum 3.4 g/dL (3.2-5.0); Alkaline Phosphatase 85 U/L (45-117); Anion Gap 8 (5-15); BUN 19 mg/dL (7-18); BUN/Creat Ratio 21.7 RATIO (10-20); Calcium,Total 9.3 mg/dL (8.5-10.1); Chloride 103 mmol/L (98-107); Cholesterol 168 mg/dL (200); Creatinine, Serum 0.88 mg/dL (0.55-1.02); EST Glomerular Filtration Rate 67 mL/min (>60); Est Glom Filt Rate - Afr Amer 81 mL/min (>60); Globulin 3.6 g/dL (2.2-4.2); Glucose 98 mg/dL (74-106); High Density Lipoprotein 50 mg/dL; Potassium 4.3 mmol/L (3.5-5.1); Sodium Level 142 mmol/L (136-145); Triglycerides 124 mg/dL; Very Low Density Lipoprotein 25 mg/dL (5-40)
[2018-07-24 16:24] LABS: Vitamin B12 910 pg/mL (211-911)
== END ==
PROVIDERS: Family Provider Family Medicine; PCP Family Medicine; Visit Provider Family Medicine
DX: I50.9 Heart failure, unspecified (principal); E53.8 Deficiency of other specified B group vitamins
CPT/HCPCS: 36415; 80053; 80061; 82607; 85025

== ENCOUNTER → 2018-07-25 10:58 | Outpatient (CLI) | payer MEDICARE, SELFPAY ==
--- NOTE | 2018-07-25 11:08 | VDLE_ITS ---
Reason For Study: RLE EDEMA RIGHT GSV is normal. CFV is compressible, spontaneous, phasic, competent and demonstrates normal augmentation. FV is compressible, spontaneous, phasic, competent and demonstrates normal augmentation. POP V is compressible, spontaneous, phasic, competent and demonstrates normal augmentation. T/P Trunk is compressible. PTV is compressible. RT PerV is compressible. NON-VASCULAR structure noted in the right pop fossa area measuring 3.94 cm x 0.963 cm. Procedure The study was technically difficult. Interpretation Summary Deep veins of the right lower extremity are patent and compressible segmentally. There is no evidence of right lower extremity deep vein thrombosis. Valvular competence appears intact within the proximal deep venous system on the right . The right greater saphenous vein appears patent and compressible segmentally. A non-vascular, hypoechoic structure is noted in the right popliteal space, measuring 3.94 cm x 0.963 cm. This probably represents a popliteal cyst. Clinical correlation is advised. Ordering Physician: Garret Kidd Referring Physician: Garret Kidd Performed By: Emily Chavira, GABRIEL, RVT
== END ==
PROVIDERS: Family Provider Family Medicine; PCP Family Medicine; Visit Provider Family Medicine
DX: R60.0 Localized edema (principal)
CPT/HCPCS: 93971

== ENCOUNTER → 2018-07-26 11:02 | Outpatient (CLI) | payer MEDICARE, SELFPAY ==
--- NOTE | 2018-07-28 15:45 | LEAS ---
Arterial Study - Arterial Study Arterial Study: This is a 73-year-old female with an open ulceration on her toe. Suspecting the presence of atherosclerotic peripheral arterial occlusive disease, the patient was brought to the noninvasive vascular laboratory at this time for the purpose of bilateral noninvasive lower extremity arterial assessment. Doppler signal assessment was used to evaluate the pulses at ankle level bilaterally. The posterior tibial and dorsalis pedis pulses were triphasic bilaterally. Segmental limb pressures were obtained bilaterally. The right ankle pressure, as determined by posterior tibial pulse, was measured at 201 mmHg. The right ankle pressure, as determined by dorsalis pedis pulse, was measured at 153 mmHg. The right digital pressure was measured at 158 mmHg. The left ankle pressure, as determined by posterior tibial pulse, was measured at 179 mmHg. The left ankle pressure, as determined by dorsalis pedis pulse, was measured at 152 mmHg. The left digital pressure was measured at 144 mmHg. Pulse-volume recordings were obtained at ankle and digital levels bilaterally. Waveform amplitudes appeared to be satisfactory bilaterally. Resting ankle-brachial indices were calculated bilaterally. The resting right ankle-brachial index was calculated to be 1.63. The resting left ankle-brachial index was calculated to be 1.46. Digital-brachial indices were calculated bilaterally. The right digital-brachial index was calculated to be 1.28. The left digital-brachial index was calculated to be 1.17. Impression: Based upon findings of this resting noninvasive lower extremity arterial study, there is no evidence of significant atherosclerotic peripheral arterial occlusive disease in the lower extremities bilaterally. Triphasic waveforms were noted at ankle level bilaterally. Resting ankle-brachial indices are supra-normal bilaterally, which is suggestive of arterial calcification rendering the arterial tree noncompressible, or relatively so. In this regard, clinical correlation is advised. Digital-brachial indices are bilaterally normal.
--- NOTE | 2018-07-28 15:49 | LEAS_ITS ---
Arterial Study - Arterial Study Arterial Study: This is a 73-year-old female with an open ulceration on her toe. Suspecting the presence of atherosclerotic peripheral arterial occlusive disease, the patient was brought to the noninvasive vascular laboratory at this time for the purpose of bilateral noninvasive lower extremity arterial assessment. Doppler signal assessment was used to evaluate the pulses at ankle level bilaterally. The posterior tibial and dorsalis pedis pulses were triphasic bilaterally. Segmental limb pressures were obtained bilaterally. The right ankle pressure, as determined by posterior tibial pulse, was measured at 201 mmHg. The right ankle pressure, as determined by dorsalis pedis pulse, was measured at 153 mmHg. The right digital pressure was measured at 158 mmHg. The left ankle pressure, as determined by posterior tibial pulse, was measured at 179 mmHg. The left ankle pressure, as determined by dorsalis pedis pulse, was measured at 152 mmHg. The left digital pressure was measured at 144 mmHg. Pulse-volume recordings were obtained at ankle and digital levels bilaterally. Waveform amplitudes appeared to be satisfactory bilaterally. Resting ankle-brachial indices were calculated bilaterally. The resting right ankle-brachial index was calculated to be 1.63. The resting left ankle- brachial index was calculated to be 1.46. Digital-brachial indices were calculated bilaterally. The right digital- brachial index was calculated to be 1.28. The left digital-brachial index was calculated to be 1.17. Impression: Based upon findings of this resting noninvasive lower extremity arterial study, there is no evidence of significant atherosclerotic peripheral arterial occlusive disease in the lower extremities bilaterally. Triphasic waveforms were noted at ankle level bilaterally. Resting ankle-brachial indices are supra-normal bilaterally, which is suggestive of arterial calcification rendering the arterial tree noncompressible, or relatively so. In this regard, clinical correlation is advised. Digital-brachial indices are bilaterally normal.
== END ==
PROVIDERS: Family Provider Family Medicine; PCP Family Medicine; Visit Provider Family Medicine
DX: I73.9 Peripheral vascular disease, unspecified (principal)
CPT/HCPCS: 93922

== ENCOUNTER 2018-07-29 09:23 | Outpatient (RCR) | payer MEDICARE, SELFPAY ==
[2018-07-29 09:55] VITALS: BP 135/75; PULSE 106; RESP 20; TEMP 36.5; BMI 36.4
--- NOTE | 2018-07-30 09:38 | PCM.WC.HP ---
(1) Open wound of second toe of right foot Status: Acute Current Visit: Yes Code(s): S91.104A - Unspecified open wound of right lesser toe(s) without damage to nail, initial encounter (2) Edema of both lower extremities Status: Chronic Current Visit: Yes Code(s): R60.0 - Localized edema (3) Status post fracture of right tibia Status: Chronic Current Visit: No Code(s): Z87.81 - Personal history of (healed) traumatic fracture (4) Deafness Status: Chronic Current Visit: No Code(s): H91.90 - Unspecified hearing loss, unspecified ear (5) Hypertension Status: Chronic Current Visit: No Code(s): I10 - Essential (primary) hypertension History of Present Illness Chief Complaint: Right second toe open wound. Toe had been swollen and ecchymotic last week. History of Wound: Patient is 73 year old female who fractured her tibia in December. She has been in a boot up until last week. She states that she has had a sore on her right second toe which she believes was caused by the boot. She denies any trauma to her right foot/toe area. Last week her right second toe became extremely ecchymotic, swollen and painful and that is when she noticed the open wound. She lives in assisted living. They had been applying antibiotic ointment to her right second toe and covering with a band-aid. Her family took her to a doctor who obtained x-rays which were negative for a fracture of her toe. She uses a wheelchair when she is going out in public or when she is doing a lot of walking. Past Medical History Past Medical History: Chronic Problems Anxiety (Chronic) Depression (Chronic) Deafness (Chronic) Status post fracture of right tibia (Chronic) Edema of both lower extremities (Chronic) Cardiomyopathy (Chronic) NON ISCHEMIC CARDIOMYOPATHY Hypertension (Chronic) Degenerative joint disease (DJD) of lumbar spine (Chronic) Alcohol abuse (Chronic) PATIENT STATES SHE DRINKS 1- 1 1/2 LITERS OF WINE NITELY-THERE WAS NO EVIDENCE OF ANXIETY OR DT'S DURING HER HOSPITAL STAY Tobacco consumption (Chronic) PATIENT SMOKES 1- 1 1/2 PACKS CIGARETTES PER DAY-REFUSED NICOTINE PATCH AND HAD NO SIDE EFFECTS FROM BEING OFF TOBACCO WHILE IN HOSPITAL Hyperlipidemia (Chronic) Surgical History: hysterectomy, - - oophorectomy, ankle surgery, foot surgery, bilateral knee surgery, wrist surgery Allergies/Adverse Reactions: Allergies acetaminophen Allergy (Verified 07/29/18 10:23) Unknown ibuprofen Allergy (Verified 07/29/18 10:23) Swelling Penicillins Allergy (Verified 07/29/18 10:23) Swelling Home Medications: Ambulatory Orders Medication Instructions Recorded Carbamide Peroxide [Ear Wax 3 drop OT QHS 12/24/17 Removal] Fluticasone/Vilanterol [Breo 1 each IH DAILY 12/24/17 Ellipta 100-25 Mcg INH] Furosemide 40 mg PO DAILY 12/24/17 Ipratropium/Albuterol Sulfate 3 ml INHALATION Q4H PRN PRN 12/24/17 [Duoneb] Melatonin 1 mg PO QHS 12/24/17 Multivitamin [Animal Shapes] 1 each PO DAILY 12/24/17 busPIRone [Buspar] 15 mg PO BID 12/24/17 Aspirin 325 mg PO DAILY@0800 30 Days 12/27/17 tablet - Family History Maternal Unknown - Adopted Paternal Unknown - Adopted Smoking Status: Former smoker Review of Systems Constitutional: Denies: Chills, Fever Eyes: Denies: Blurred vision HEENT: Reports: Difficulty Hearing - She has a history of deafness. Cardiovascular: Reports: Edema - bilateral lower extremities. Denies: Chest Pain Respiratory: Denies: Cough, Shortness of Breath Gastrointestinal: Denies: Abdominal Pain, Nausea, Vomiting Musculoskeletal: Reports: Foot Pain - Right second toe pain, Leg Pain - Right lower leg pain- cast removed last week after having fractured tibia in December Skin: Reports: Wounds - Wound on dorsal aspect of right second toe. Neurological: Denies: Balance problems Psychiatric: Denies: Anxiety Endocrine: Denies: Heat/ Cold Intolerance, Polydipsia, Polyuria Hematologic/ Lymphatic: Denies: Easy Bruising, Easy Bleeding - Physical Exam Vital Signs Temp Pulse Resp BP 97.7 F L 106 H 20 H 135/75 H 07/29/18 09:55 07/29/18 09:55 07/29/18 09:55 07/29/18 09:55 General: Alert, Oriented x3, Cooperative HEENT: Atraumatic, PERRLA Oral: Moist Mucosa Lungs: Clear to auscultation, Normal air movement Cardiovascular: Regular rate, Regular Rhythm Extremities: No clubbing, Capillary Refill Less than 3 Seconds, Edema - +2 edema bilateral lower extremities Skin: Ulcer/ Wound - Open area on dorsal aspect of right second toe. Wound Measurements and Assessment WC - Nurse 1 - General Ulcer Measurement Start: 07/29/18 09:54 Freq: Status: Active Protocol: Activity Type Activity Date Activity User E-Sign Co-Sign Detail Recorded Client Recorded Date Recorded By Document 07/29/18 09:55 [email or web address] [id number] 07/29/18 10:16 DL 07/29/18 09:55 Wound Center Nurse 1 [Ulcer Assessment] #1 R 2nd toe -Current Size (cm) - Length 0.6 -Current Size (cm) - Width 0.6 -Current Size (cm) - Depth 0.1 -Total Square Cm 0.36 -Photo Taken Yes -Epithelialization Small 1-33% -Exudate Amt None Present (0 %) -Wound Margin Flat & Intact -Granulation Amt Small (1-33%) -Granulation Quality [place] -Necrosis Amt Small (1-33%) -Necrotic Tissue Type Adherent Slough -Structure Exposed N/A -Texture (Tiesha-wound Skin Appearance) Localized Edema -Moisture (Tiesha-wound Skin Appearance Dry/Scaly ) -Color (Tiesha-wound Skin Appearance) Hemosiderin Staining Mottled -Temperature (Tiesha-wound Skin Cool/Cold Appearance) -Tenderness on Palpation (Tiesha-wound No Skin Appearance) -Ulcer Cleansing Wound Cleanser -Foul Odor after Cleansing No -Anesthetic Used 4% Lidocaine Solution [Edema Assessment] -Right Calf (cm) 42.5 -Right Ankle (cm) 26 -Left Calf (cm) 41 -Left Ankle (cm) 25 WC - Nurse 2 - General Ulcer CM Notes Start: 07/29/18 09:54 Freq: Status: Active Protocol: Activity Type Activity Date Activity User E-Sign Co-Sign Detail Recorded Client Recorded Date Recorded By Document 07/29/18 11:18 EBONI [id number] 07/29/18 11:19 EBONI 07/29/18 11:18 Wound Center Nurse 2 [Procedure/Treatment] #1 R 2nd toe -Correct Patient No -Correct Side, Site, Position No -Correct Procedure No -Procedure Performed No [See Physician Procedure note for Specifics] Pain Scale: 0-10 Numeric [Pain] -Is Patient Pain Free? Yes Musculoskeletal: Tenderness - right lower extremity Neurological: Neuro grossly intact Psych/Mental Status: Normal Affect, Appropriate, Alert and oriented to time, place, person, mood and affect Debridement Note Post-Debridement Measurements/Treatment WC - Nurse 2 - General Ulcer CM Notes Start: 07/29/18 09:54 Freq: Status: Active Protocol: Activity Type Activity Date Activity User E-Sign Co-Sign Detail Recorded Client Recorded Date Recorded By Document 07/29/18 11:18 EBONI [id number] 07/29/18 11:19 EBONI 07/29/18 11:18 Wound Center Nurse 2 #1 R 2nd toe -Correct Patient No -Correct Side, Site, Position No -Correct Procedure No -Procedure Performed No Pain Scale: 0-10 Numeric Is Patient Pain Free? Yes No debridement was completed today Assessment/Plan Active Problems Open wound of second toe of right foot (Acute) Edema of both lower extremities (Chronic) Assessment: 1. Open wound of second toe of right foot. 2. Edema of both lower extremities. 3. Status post fracture of right tibia. 4. Deafness Plan: Patient lives in assisted living. She had a fracture of her right tibia in December in which she had a cast on her right lower leg. The cast was removed last week. She has since noticed her right second toe was swollen, ecchymotic and had an open area on it. The open area is 0.6 x 0.6 x 0.1. Her toe was x-rayed last week and was negative for any fractures at that time. She has been been placing antibiotic ointment on her second toe. She will continue to apply the antibiotic ointment daily and cover with guaze. She will follow up next week for furhter evaluation of this opened area. She had labs drawn 07/24/18 which were unremarkable. She has not been wearing her compression stockings on her right leg because she states it is too painful to put them on since she fratured her lower leg. She had vascular studies on 07/28/18 which showed her KAREEM Right 1.63 and left 1.46. Her digital-brachial index right 1.28 and left 1.17. She had right venous doppler 07/25/18 which was negative for blood clot. She is very interested in Juxtalite compression for her right lower extremity. She will wear her compression stockings on her left leg. She will follow up in one week for further evaluation of her right second toe and to be instructed how to use the Juxtalite compression stockings. Code Visit Office Visits / Consults: [id number] OV L3 New
== END 2018-08-04 23:59 ==
LOC: WC 09:23
PROVIDERS: Family Provider Family Medicine; PCP Family Medicine; Visit Provider Nurse Practitioner Family
DX: S91.104A Unspecified open wound of right lesser toe(s) without damage to nail, initial encounter (principal); Z87.81 Personal history of (healed) traumatic fracture; H91.90 Unspecified hearing loss, unspecified ear; R60.0 Localized edema; I10 Essential (primary) hypertension; M79.89 Other specified soft tissue disorders; M47.896 Other spondylosis, lumbar region; E78.5 Hyperlipidemia, unspecified; F17.210 Nicotine dependence, cigarettes, uncomplicated; F10.10 Alcohol abuse, uncomplicated; Z79.899 Other long term (current) drug therapy
CPT/HCPCS: 99214; G0463

== ENCOUNTER 2018-08-05 07:52 | Outpatient (RCR) | payer MEDICARE, SELFPAY ==
[2018-08-05 01:47] VITALS: BP 135/75; PULSE 106; RESP 20; TEMP 36.5
== END 2018-09-04 23:59 ==
LOC: WC 07:52
PROVIDERS: Family Provider Family Medicine; PCP Family Medicine; Visit Provider Nurse Practitioner Family
DX: Z09 Encounter for follow-up examination after completed treatment for conditions other than malignant neoplasm (principal)

== ENCOUNTER → 2018-08-16 05:00 | Outpatient (REF) | payer MEDICARE, SELFPAY ==
[2018-08-16 08:18] LABS: Anion Gap 7 (5-15); BUN 20 mg/dL (7-18); BUN/Creat Ratio 18.2 RATIO (10-20); Calcium,Total 9.2 mg/dL (8.5-10.1); Chloride 98 mmol/L (98-107); EST Glomerular Filtration Rate 52 mL/min (>60); Est Glom Filt Rate - Afr Amer 62 mL/min (>60); Glucose 93 mg/dL (74-106); Potassium 4.1 mmol/L (3.5-5.1); Sodium Level 143 mmol/L (136-145)
== END ==
LOC: OLS.AVEB 05:00
DX: R60.0 Localized edema (principal)
CPT/HCPCS: 36415; 80048

== ENCOUNTER 2018-08-22 09:57 | Emergency (ER) | payer MEDICARE, SELFPAY ==
[2018-08-22 09:58] VITALS: BP 115/96; PULSE 103; RESP 18; TEMP 36.6; O2SAT 96; BMI 40.8
--- NOTE | 2018-08-22 10:12 | CT_ITS ---
STUDY: CT BRAIN WITHOUT CONTRAST REASON FOR EXAM: Female, 73 years old. FELL ON SUNDAY, BRUISING TO RT EYE, CHF, COPD,HTN,OVARIAN CA RADIATION DOSAGE (If Supplied By Facility): CTDIvol = ( 44.99 ) mGy, DLP = ( 711.75 ) mGycm TECHNIQUE: Transaxial CT imaging of the brain was performed without administration of intravenous contrast material. Individualized dose optimization techniques were used for this CT. COMPARISON: March 12, 2017 FINDINGS: There is cerebral atrophy with widening of the extra-axial spaces and ventricular dilatation. There are areas of decreased attenuation within the white matter tracts of the supratentorial brain, consistent with microvascular disease changes. There is no intracranial hemorrhage. There are no findings of an acute ischemic infarction. There are large retrobulbar tubular structures greater on the left (coronal image #18 series 601). Findings are likely secondary to enlarged veins. Findings were present on the prior examination to much lesser degree. Normal visualized paranasal sinuses. CT/Brain/Head without Contrast IMPRESSION: No acute intracranial abnormality. Enlarged intraorbital vascularity. Electronically Signed: Zeyenp Echols MD at 11:43 EDT Tel , Service support ,
--- NOTE | 2018-08-22 10:12 | ED.VISSUMM ---
- ER Visit Summary Date of Service: 08/22/18 Chief Complaint: [] Fall keshia orbital right eye contusion History of Present Illness: The patient is a 73 F [] patient has no complaints. She lives at [facility], apparently on Sunday she was getting up from the commode and she inadvertently slipped and struck her right face against an object she had no LOC she has had no headache no nausea vomiting fever cough no change in vision no paresthesias the [facility]pc staff became concerned about the periorbital contusion around her eye she was sent to the emergency department. Patient reports her vision her eyes are unremarkable she does note a contusion, she has no head neck chest back paresthesias Physical Examination: [] Total signs are within normal range she is in no distress she has an obvious discolored multicolored right periorbital contusion her pupils are equal round reactive the anterior chambers intact her vision to that eye and the other eye are unremarkable normal, extraocular muscle movements are full the anterior chamber grossly seems to be open and intact without debris again she has no eye pain or eye complaints her HEENT exam is otherwise unremarkable her neck is nontender her lungs are clear the heart tones are normal the abdomen is soft nontender she is moving all 4 extremities she does have 2-3+ lower extremity edema that is chronic her back T-spine lumbar spine unremarkable, and her neurologic exam is completely unremarkable full range of motion normal cranial nerves NIH 0 she is hard of hearing Test Results: [] Emergency Department Course and Treatment: [] There is a concern on the prior fpc related to the fall periorbital edema there is no signs of fracture or extraocular muscle movements are full she is really nontender over the periorbital region of the eye at this time will obtain CT head and reevaluate Head CT per radiology is negative for all acute findings see that report, she is resting currently better status is unchanged she is comfortable discharge home to continue her management we will provide her as a precaution head injury instructions Treatment Plan: [] Disposition: [] Home stable Impression: [] Right facial trauma with periorbital contusion This note was generated with Grapewordation software. It may contain incorrect words, spelling, and punctuation that were not noted in review of the chart prior to signing ED Disposition - Plan for ED Patient: Chief Complaint: Fall Referrals: Garret Kidd MD [Primary Care Provider] -
--- NOTE | 2018-08-22 10:15 | ED.DCSUM_ITS ---
- ER Visit Summary Date of Service: 08/22/18 Chief Complaint: [] Fall keshia orbital right eye contusion History of Present Illness: The patient is a 73 F [] patient has no complaints. She lives at [facility], apparently on Sunday she was getting up from the commode and she inadvertently slipped and struck her right face against an object she had no LOC she has had no headache no nausea vomiting fever cough no change in vision no paresthesias the alf staff became concerned about the periorbital contusion around her eye she was sent to the emergency department. Patient reports her vision her eyes are unremarkable she does note a contusion, she has no head neck chest back paresthesias Physical Examination: [] Total signs are within normal range she is in no distress she has an obvious discolored multicolored right periorbital contusion her pupils are equal round reactive the anterior chambers intact her vision to that eye and the other eye are unremarkable normal, extraocular muscle movements are full the anterior chamber grossly seems to be open and intact without debris again she has no eye pain or eye complaints her HEENT exam is otherwise unremarkable her neck is nontender her lungs are clear the heart tones are normal the abdomen is soft nontender she is moving all 4 extremities she does have 2-3+ lower extremity edema that is chronic her back T-spine lumbar spine unremarkable, and her neurologic exam is completely unremarkable full range of motion normal cranial nerves NIH 0 she is hard of hearing Test Results: [] Emergency Department Course and Treatment: [] There is a concern on the prior alf related to the fall periorbital edema there is no signs of fracture or extraocular muscle movements are full she is really nontender over the periorbital region of the eye at this time will obtain CT head and reevaluate Head CT per radiology is negative for all acute findings see that report, she is resting currently better status is unchanged she is comfortable discharge home to continue her management we will provide her as a precaution head injury instructions Treatment Plan: [] Disposition: [] Home stable Impression: [] Right facial trauma with periorbital contusion This note was generated with Greenscreen Animalsation software. It may contain incorrect words, spelling, and punctuation that were not noted in review of the chart prior to signing ED Disposition - Plan for ED Patient: Chief Complaint: Fall Referrals: Garret Kidd MD [Primary Care Provider] -
--- NOTE | 2018-08-22 12:05 | ED.DEP ---
ED Disposition - Plan for ED Patient: Chief Complaint: Fall Instructions: ED Head Injury Closed Referrals: Garret Kidd MD [Primary Care Provider] - Additional Instructions: Follow-up with your eye doctor in the next few days
[2018-08-22 12:36] VITALS: BP 125/86; PULSE 90; RESP 18; O2SAT 95
== END 2018-08-22 12:37 | disposition home or self-care (01) ==
PROVIDERS: Emergency Provider Emergency Medicine; Family Provider Family Medicine; PCP Family Medicine
DX: S00.11XA Contusion of right eyelid and periocular area, initial encounter (principal); S09.90XA Unspecified injury of head, initial encounter; W01.10XA Fall on same level from slipping, tripping and stumbling with subsequent striking against unspecified object, initial encounter; Y93.9 Activity, unspecified; Y92.129 Unspecified place in nursing home as the place of occurrence of the external cause; R60.0 Localized edema; Z79.82 Long term (current) use of aspirin
CPT/HCPCS: 70450; 99284

== ENCOUNTER → 2018-08-28 05:00 | Outpatient (REF) | payer MEDICARE, SELFPAY ==
[2018-08-28 09:46] LABS: Anion Gap 7 (5-15); BUN 20 mg/dL (7-18); BUN/Creat Ratio 19.6 RATIO (10-20); Calcium,Total 9.4 mg/dL (8.5-10.1); Chloride 97 mmol/L (98-107); Creatinine, Serum 1.02 mg/dL (0.55-1.02); EST Glomerular Filtration Rate 56 mL/min (>60); Est Glom Filt Rate - Afr Amer 68 mL/min (>60); Glucose 106 mg/dL (74-106); Potassium 4.2 mmol/L (3.5-5.1); Sodium Level 142 mmol/L (136-145)
== END ==
DX: R60.0 Localized edema (principal)
CPT/HCPCS: 36415; 80048

== ENCOUNTER 2018-08-30 20:52 | Emergency (ER) | payer MEDICARE, SELFPAY ==
[2018-08-30 20:53] VITALS: BP 126/83; PULSE 95; RESP 18; TEMP 37; O2SAT 100; BMI 38.9
--- NOTE | 2018-08-30 21:32 | RAD_ITS ---
STUDY: X-RAY - LEFT HAND REASON FOR EXAM: Female, 73 years old. Trauma TECHNIQUE: 3 view(s) of the hand. COMPARISON: None. FINDINGS: Normal radiocarpal articulation. There is an old nonunited ulnar styloid process fracture. There is diffuse demineralization of the carpal bones. Normal carpal articulations There is degenerative arthrosis of the carpometacarpal (CMC) articulation of the thumb. Normal second through fifth carpometacarpal joints. Normal metacarpi. Normal metacarpophalangeal joint of the thumb. Normal interphalangeal joint of the thumb. Normal proximal and distal phalanges of the thumb. Normal metacarpophalangeal joints of the second through fifth fingers. There are severe arthritic changes of the third through fifth PIP joints and second through fifth DLP joints. Normal phalanges of the second through fifth fingers. There is soft tissue swelling of the dorsum of the hand. RAD/Hand Min 3 Views IMPRESSION: Degenerative changes as detailed above. Old nonunited ulnar styloid process fracture. Soft tissue swelling of the dorsum of the hand. Electronically Signed: Taco Moore MD at 22:03 EDT , Service support ,
--- NOTE | 2018-08-30 21:32 | RAD_ITS ---
STUDY: X-RAY - RIGHT FOOT CLINICAL: Female, 73 years old. Trauma TECHNIQUE: 3 view(s) of the foot. COMPARISON: None. FINDINGS: There is fusion of the talocalcaneal joint. There is generalized osteopenia. There is fusion of the talonavicular joint. Normal metatarsi. Normal metatarsophalangeal joint of the great toe. Normal tibial and fibular sesamoid bones. Normal interphalangeal joint of the great toe. Normal phalanges of the great toe. Normal second through fifth metatarsophalangeal joints. Normal interphalangeal joints and phalanges of the lesser toes. Arterial calcifications are noted in the right foot. There is a healed fracture of the distal tibial shaft/metaphysis. RAD/Foot min 3 Views IMPRESSION: Fusion of the talocalcaneal and talonavicular joints. Generalized osteopenia. Healed fracture of the distal tibial shaft/metaphysis. Electronically Signed: Taco Moore MD at 22:06 EDT , Service support ,
--- NOTE | 2018-08-30 21:32 | RAD_ITS ---
STUDY: X-RAY - LEFT KNEE REASON FOR EXAM: Female, 73 years old. Trauma TECHNIQUE: 2 view(s) of the knee. COMPARISON: None. FINDINGS: Normal visualized distal femur. There is an internal fixation plate along the lateral aspect of the tibial plateau to proximal tibial metaphysis. This appears to have stabilized and oblique lateral tibial plateau/lateral tibial metaphysis fracture. There is arthrosis of the proximal tibiofibular articulation. Normal medial femorotibial compartment. Normal lateral femorotibial compartment. Normal patellofemoral articulation. The soft tissue structures are unremarkable. RAD/Knee 1 or 2 Views IMPRESSION: Degenerative and postsurgical changes as detailed above. There is no evidence of acute fracture or dislocation. Electronically Signed: Taco Moore MD at 21:55 EDT , Service support ,
[2018-08-30] MEDS: Diphth,Pertuss(Acell),Tet Vac 0.5 ML Vial IM (21:56)
[2018-08-30 23:05] VITALS: BP 116/80; PULSE 93; RESP 16; O2SAT 95
--- NOTE | 2018-08-30 23:15 | ED.VISSUMM ---
- ER Visit Summary Date of Service: 08/30/18 Chief Complaint: Injury to left hand, left knee and right foot status post fall History of Present Illness: The patient is a 73 F who has history of frequent falls. She got a new wheelchair. She has had frequent falls since obtaining the new wheelchair. She complains of right foot pain and left knee pain. She also complains of left hand pain. She denied head trauma. She denies neck pain. She denies paresthesia, anesthesia or motor weakness. She denies respiratory or cardiac symptoms. She denies nausea or vomiting. She denies black or maroon stool. There is a past medical history of hypertension, hypercholesterolemia, degenerative joint disease, osteoporosis, depression and anxiety. She also has history of multiple fractures secondary to falls. Physical Examination: Vital signs noted unremarkable. Head is atraumatic normocephalic. Pupils are equal round reactive. Extraocular muscles are intact. TMs are pearly white with landmarks noted. Nares patent with no drainage. Posterior pharynx without erythema or exudate. Uvula is midline. There is no dysphonia or dysphasia. Trachea is midline. There is no stridor with auscultation of the neck. There is no clinical evidence of basal skull fracture. C-spine was cleared per Nexus criteria. Heart is regular. There is no murmur, gallop or rub. Lungs are clear to auscultation. Abdomen is soft nontender. Is no pain the patient of the pelvis. Is no pain palpation of the spinous process of the dorsal lumbar spine. There is swelling with discoloration and pain palpation of the right foot. Difficult to assess DP PT pulse secondary to swelling. Capillary refill is normal. No subungual hematoma noted. Examination left knee reveals soft tissue swelling pain abrasion of the patella concern for prepatellar bursitis. There is a small effusion. There is discomfort with passive flexion extension. There is no laxity with varus valgus stress testing. Scar is noted secondary to prior fracture requiring repair. There is a 4.9 cm laceration webspace between the left thumb and index finger. Median, radial and ulnar function intact. Capillary refill is normal. Sensation of the thumb and index finger are intact. GCS is 15. Patient is alert and oriented ?3. Motor is 5/5. Sensation is intact. DTRs are symmetric without clonus or Babinski. Cranial nerves II through XII are intact. Finger to nose to finger was performed adequately. Test Results: Three-view x-ray of the hand interpreted by me as negative for fracture or foreign body. There is osteopenia and significant osteoarthritic changes. Three-view x-ray of the foot was obtained which reveals osteopenia, calcification of vessels and degenerative changes. No fracture is noted. Two-view x-ray of the left knee was obtained and reveals mild effusion. There is no fracture the patella. There is hardware secondary to open reduction internal fixation of proximal tibial fracture. There is erythema and tenderness over the patella suggestive of a prepatellar bursitis most likely traumatic secondary to prior recent falls. Emergency Department Course and Treatment: X-ray of the hand, foot and knee were obtained to rule out fracture and foreign body. The hand laceration was next times 1% lidocaine by local filtration. A total of 3 cc was infiltrated. The wound was irrigated with 200 cc normal saline. Using 5-0 Ethilon multiple simple interrupted sutures were placed with good cosmesis hemostasis. Treatment Plan: Home-going instructions for contusion, fall and laceration Disposition: Discharge to nursing facility Impression: 1. Injury secondary to fall initial encounter 2. Right foot contusion initial encounter 3. Left knee contusion initial encounter 4. Left prepatellar bursitis traumatic 5. 4.9 cm laceration left hand initial encounter This note was generated with [employer] dictation software. It may contain incorrect words, spelling, and punctuation that were not noted in review of the chart prior to signing ED Disposition - Plan for ED Patient: Disposition: Home or Assisted Living Chief Complaint: Laceration Instructions: ED Laceration Hand, ED Contusion Lower Ext, ED Bursitis Referrals: Garret Kidd MD [Primary Care Provider] - 10-14 Days suture removal Additional Instructions: Clean wound with peroxide and Q-tip 3 times a day then apply bacitracin ointment.
--- NOTE | 2018-08-30 23:34 | ED.RN ---
Domonique contacted, updated on patient care. Told patient is getting discharged back to their facility. Nurse denies having any transport to get patient. This RN then contacted David Pittman, patients POA. Updated him on patients status and care. 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
[2018-08-30 23:39] VITALS: BP 121/80; PULSE 92; RESP 18; O2SAT 94
--- NOTE | 2018-08-31 00:26 | ED.RN ---
2350 pt assisted into wheelchair and wheeled out to family vehicle. Instructed family member to call [facility] staff on arrival so they can help get patient safely inside. Phone number given. Pt and family denies questions or further needs.
== END 2018-08-31 00:09 | disposition home or self-care (01) ==
PROVIDERS: Emergency Provider Emergency Medicine; Family Provider Family Medicine; PCP Family Medicine
DX: S61.412A Laceration without foreign body of left hand, initial encounter (principal); S90.31XA Contusion of right foot, initial encounter; S80.02XA Contusion of left knee, initial encounter; S80.212A Abrasion, left knee, initial encounter; M70.42 Prepatellar bursitis, left knee; W19.XXXA Unspecified fall, initial encounter; Z91.81 History of falling; Y93.9 Activity, unspecified; Y92.9 Unspecified place or not applicable; I10 Essential (primary) hypertension; E78.00 Pure hypercholesterolemia, unspecified; F32.9 Major depressive disorder, single episode, unspecified; F41.9 Anxiety disorder, unspecified; M81.0 Age-related osteoporosis without current pathological fracture; M19.90 Unspecified osteoarthritis, unspecified site; Z79.82 Long term (current) use of aspirin; Z79.899 Other long term (current) drug therapy
CPT/HCPCS: 12002; 73130; 73560; 73630; 90471; 90715; 99285

== ENCOUNTER 2018-10-22 11:41 | Emergency (ER) | payer MEDICARE, SELFPAY ==
[2018-10-22 11:44] VITALS: BP 128/85; PULSE 104; RESP 16; TEMP 36.8; O2SAT 96; BMI 40.6
--- NOTE | 2018-10-22 12:08 | RAD_ITS ---
STUDY: X-RAY - RIGHT FOOT CLINICAL: Female, 73 years old. Laceration of the fifth toe due to injury. TECHNIQUE: 3 view(s) of the foot. COMPARISON: Comparison is made with prior study dated August 30, 2018. FINDINGS: There is fusion of the talocalcaneal joint. Generalized osteopenia. Fusion of the talonavicular joint. There is demineralization of the metatarsi. Healed transverse fractures of the distal portion of the second and third metatarsals. Normal metatarsophalangeal joint of the great toe. Normal tibial and fibular sesamoid bones. Normal interphalangeal joint of the great toe. Normal phalanges of the great toe. Normal second through fifth metatarsophalangeal joints. Normal interphalangeal joints and phalanges of the lesser toes. Diffuse soft tissue swelling. Vascular calcification. RAD/Foot min 3 Views IMPRESSION: Diffuse soft tissue swelling and osteopenia. No acute abnormality is seen. Electronically Signed: Antoni Meier MD at 13:18 EST Tel [phone], Service support ,
--- NOTE | 2018-10-22 12:08 | CT_ITS ---
STUDY: CT BRAIN WITHOUT CONTRAST REASON FOR EXAM: Female, 73 years old. Facial bruising due to a fall. RADIATION DOSAGE (If Supplied By Facility): CTDIvol = ( 44.99 ) mGy, DLP = ( 762.36 ) mGycm TECHNIQUE: Transaxial CT imaging of the brain was performed without administration of intravenous contrast material. Individualized dose optimization techniques were used for this CT. COMPARISON: Comparison is made with prior study dated August 22, 2018. FINDINGS: There is a moderate-sized scalp hematoma overlying the right frontal bone. Normal calvarium. Once again, there are large retrobulbar tubular structures in both orbits worse on the left side. These most likely represent venous varicosities. There is mild cerebral atrophy with widening of the extra-axial spaces and ventricular dilatation. There are areas of decreased attenuation within the white matter tracts of the supratentorial brain, consistent with microvascular disease changes. Normal basal ganglia and thalami. Normal brainstem. Normal cerebellum. There is no intracranial hemorrhage. There are no findings of an acute ischemic infarction. Atherosclerotic calcification of the cavernous portions of the internal carotid arteries. Normal visualized paranasal sinuses. CT/Brain/Head without Contrast IMPRESSION: Moderate sized scalp hematoma overlying the right frontal bone. The remainder of the examination is unchanged. Electronically Signed: Antoni Meier MD at 13:15 EST Tel [phone], Service support ,
--- NOTE | 2018-10-22 12:12 | ED.DCSUM_ITS ---
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, her general medical condition and neurologic condition are unchanged she has no complaints except as above there is no Physical Examination: [] 120/85 afebrile General, no distress resting comfortably HEENT is markable for a contusion to the right periorbital area, there is a small subconjunctival hemorrhage 7 o'clock to 9 o'clock position position the pupil reacts well her vision is basically normal through confrontation testing she can see everything I put in front of her right eye appropriately and that I she indicates her eye on the right has weaker vision in the left and her vision stable she has a contusion to the right forehead and some bruising to the infraorbital area but no entrapment her left eye is unremarkable her nose and throat unremarkable her head is otherwise unremarkable her neck is nontender The neck is supple no adenopathy Cardiovascular, regular rate and rhythm Lungs, clear bilateral Abdomen, soft nontender Extremities, there is contusion and laceration to the plantar surface of the fourth and fifth toe base her toes are curled when you uncurl these toes the laceration wound margins extend, she has some discomfort to the toes but again she has diffuse numbness and she feels that her toes are numb at baseline not different since the fall Edema bilaterally x-ray Skin is red throughout she states that is normal, her back is unremarkable Neurologic, awake alert answering questions appropriately moving all 4 extremities no neurologic complaints or issues Given all the above she is not on any blood thinners, the head CT is obtained right foot x-rays obtained will discuss case with podiatry The CT head shows nothing acute soft tissue contusion, foot x-ray shows nothing acute no fracture Case was discussed with Dr. Bingham of podiatry the lacerations to the toes fourth and fifth X then from the plantar surface flexion crease across. I explained that they are very difficult to close as her toes have altered anatomy contracted etc. he asked that the closure of the lacerations be approximated to the best degree possible and he will follow-up in the office The patient underwent sterile prep local anesthetic with lidocaine digital block to good effect then copiously washed with Shur-Clens copiously irrigated and then closed with nylon with good approximation of the lacerations to both the fourth and fifth toe total laceration length about 3 cm This to the patient the complex nature of the laceration and the concept of other occult injury or process she understood she will basically be no weightbearing with the boot she uses a walker at baseline or wheelchair she does not really ambulate she indicates she is at a nursing center where she can obtain full care from nurses and she will follow-up with Dr. Bingham she will also follow-up with ophthalmology for the eye injury and her primary care doctor for the head injury and return for change in symptoms The period of observation in the emergency department remains awake and alert stable unremarkable normal neurologic hemodynamic in general medical status Test Results: [] Emergency Department Course and Treatment: [] Treatment Plan: [] Disposition: [] Home stable Impression: [] Fall, head injury, right facial injury, right periorbital injury, complex right foot laceration closed with suture 3 cm total length This note was generated with [employer] dictation software. It may contain incorrect words, spelling, and punctuation that were not noted in review of the chart prior to signing ED Disposition - Plan for ED Patient: Chief Complaint: Fall Referrals: Garret Kidd MD [Primary Care Provider] -
--- NOTE | 2018-10-22 13:32 | ED.DEP ---
ED Disposition - Plan for ED Patient: Chief Complaint: Fall Instructions: ED Mechanical Fall, ED Laceration All, ED Prevention Fall, Suture Care, ED Laceration Trunk, ED Laceration Foot, ED Head Injury Closed, ED Contusion Eye Referrals: Garret Kidd MD [Primary Care Provider] - Conor Bingham DPM [STAFF PHYSICIAN] - Edd Fam MD [STAFF PHYSICIAN] - Additional Instructions: Walking boot, wound care to the foot, head injury instructions, I instructions follow up with all of the providers were referred to return for change in symptoms up with assistance only while wearing the boot
[2018-10-22 13:38] VITALS: BP 126/77; PULSE 81; RESP 16; O2SAT 94
--- NOTE | 2018-10-22 13:46 | ED.RN ---
DR NIEVES GAVE VERBAL ORDER FOR A WALKING BOOT TO BE PLACED ON THE RIGHT LEG. WHEN IT WAS TAKEN IN TO PATINT SHE STATED SHE DID NOT NEED ANOTHER ONE BECAUSE SHE HAS ONE AT HOME. DR NIEVES NOTIFIED AND AGREEABLE TO THE PATIENT USING THE ONE SHE ALREADY HAS.
--- NOTE | 2018-10-22 15:22 | DCINST.ED_ITS ---
ED Disposition - Plan for ED Patient: Chief Complaint: Fall Instructions: Suture Care, ED Contusion Eye, ED Mechanical Fall, ED Head Injury Closed, ED Laceration All, ED Laceration Foot, ED Laceration Trunk, ED Prevention Fall Prescriptions: Hydrocodone Bitart/Apap 5-325 [Pringle 5MG-325MG] 1 tab PO Q4H PRN PRN 2 Days #10 tab PRN Reason: Pain Referrals: Edd Fam MD [STAFF PHYSICIAN] - Garret Kidd MD [Primary Care Provider] - Conor Bingham DPM [STAFF PHYSICIAN] - Additional Instructions: Walking boot, wound care to the foot, head injury instructions, I instructions follow up with all of the providers were referred to return for change in symptoms up with assistance only while wearing the boot
--- OUTSIDE RECORDS SUMMARY | 2019-01-23 22:16 | XMS RPT_ITS ---
:1945 Author Organization OHIP Support Name Relationship Address Phone Reshma Schwartz Unavailable [address] + [place] [address] R Unavailable Unavailable Unavailable Siomara Pittman Unavailable [address] + [place] [address] Bharath Schwartzin Unavailable [address] + [place] [address] R Unavailable Unavailable Unavailable Siomara Pittman Unavailable [address] + [place] [address] Bharath Schwartzin Unavailable [address] + [place] [address] R Unavailable Unavailable Unavailable Siomara Pittman Unavailable [address] + [place] [address] GLORIA RESHMA Unavailable [address] + [place] [address] R Unavailable Unavailable Unavailable TOYASIOMARA Unavailable [address] + [place] [address] [place] Reshma Unavailable [address] + [place] [address] R Unavailable Unavailable Unavailable Siomara Pittman Unavailable [address] + [place] [address] Gloria Reshma Unavailable [address] + [place] [address] R Unavailable Unavailable Unavailable Siomara Pittman Unavailable [address] + [place] [address] Gloria Reshma Unavailable [address] + [place] [address] R Unavailable Unavailable Unavailable Siomara Pittman Unavailable [address] + [place] [address] Gloria, Reshma Unavailable [address] + [place] [address] R Unavailable Unavailable Unavailable Siomara Pittman Unavailable [address] + [place] [address] Gloria, Reshma Unavailable [address] + [place] [address] R Unavailable Unavailable Unavailable Siomara Pittman Unavailable [address] + [place] [address] GLORIA, RESHMA Unavailable [address] + [place] [address] R Unavailable Unavailable Unavailable SIMOARA PITTMAN Unavailable [address] + [place] [address] GLORIA, RESHMA Unavailable [address] + [place] [address] R Unavailable Unavailable Unavailable SIOMARA PITTMAN Unavailable [address] + [place] [address] GLORIA, RESHMA Unavailable [address] + [place] [address] R Unavailable Unavailable Unavailable SIOMARA PITTMAN Unavailable [address] + [place] [address] GLORIA, RESHMA Unavailable [address] + [place] [address] R Unavailable Unavailable Unavailable SIOMARA PITTMAN Unavailable [address] + [place] [address] GLORIA, RESHMA Unavailable [address] + [place] [address] R Unavailable Unavailable Unavailable SIOMARA PITTMAN Unavailable [address] + [place] [address] GLORIA, RESHMA Unavailable [address] + [place] [address] R Unavailable Unavailable Unavailable SIOMARA PITTMAN Unavailable Unavailable + GLORIA, RESHMA Unavailable [address] + [place] [address] R Unavailable Unavailable Unavailable SIOMARA PITTMAN Unavailable Unavailable + GLORIA, RESHMA Unavailable [address] + [place] [address] R Unavailable Unavailable Unavailable SIOMARA PITTMAN Unavailable Unavailable + MATIUS, HAILEE Unavailable [address] + [address] [place] [address] R Unavailable Unavailable Unavailable BIANCA PITTMANY Unavailable Unavailable + MATIUS, HAILEE Unavailable [address] + [address] [place] [address] R Unavailable Unavailable Unavailable BIANCA PITTMANY Unavailable Unavailable + MATIUS, HAILEE Unavailable [address] + [address] [place] [address] R Unavailable Unavailable Unavailable SIOMARA PITTMAN Unavailable Unavailable + RESHMA SCHWARTZ Unavailable [address] + [place] [address] R Unavailable Unavailable Unavailable SIOMARA PITTMAN Unavailable Unavailable + Matius Hailee Unavailable [address] + [address] [place] [address] R Unavailable Unavailable Unavailable Siomara Pittman Unavailable Unavailable + Matjoaquina Hailee Unavailable [address] + [address] [place] [address] R Unavailable Unavailable Unavailable Siomara Pittman Unavailable Unavailable + NOT GIVEN Unavailable Unavailable Unavailable SIOMARA PITTMAN Unavailable [address] + [place], [place] [id number] CAITLYN ORTIZ Unavailable [address] [place] [address] NOT GIVEN Unavailable Unavailable Unavailable ATA ORTIZ Unavailable [address] + [address] [place], [place] [id number] CAITLYN ORTIZ Unavailable [address] [place] [address] Toro Hailee Unavailable [address] + [address] [place] [address] R Unavailable Unavailable Unavailable ToyaBianca maliky Unavailable Unavailable + Matius, Hailee Unavailable [address] + [address] [place] [address] R Unavailable Unavailable Unavailable Siomara Pittman Unavailable Unavailable + MatLadonna kunzy Unavailable [address] + [address] [place] [address] R Unavailable Unavailable Unavailable ToyaBiancay Unavailable Unavailable + Toro Hailee Unavailable [address] + [address] [place] [address] R Unavailable Unavailable Unavailable ToyaBiancay Unavailable Unavailable + Matjoaquina Hailee Unavailable [address] + [address] [place] [address] R Unavailable Unavailable Unavailable BIANCA PITTMANY Unavailable Unavailable + Ladonna Engely Unavailable [address] + [address] [place] [address] R Unavailable Unavailable Unavailable Bianca Pittmany Unavailable Unavailable + Ladonna Engely Unavailable [address] + [address] [place] [address] R Unavailable Unavailable Unavailable Siomara Pittman Unavailable Unavailable + Care Team Providers Name Role Phone STANLEY MENDOSA MD Referring Unavailable CECIL SHIN MD Admitting Unavailable CECIL SHIN MD Attending Unavailable CECIL SHIN MD Primary Care Unavailable STANLEY MENDOSA MD Consulting Unavailable PROVIDER, UNKNOWN Consulting Unavailable PROVIDER, UNKNOWN Consulting Unavailable PROVIDER, UNKNOWN Consulting Unavailable STANLEY MENDOSA MD Admitting Unavailable STANLEY MENDOSA MD Attending Unavailable STANLEY MENDOSA MD Primary Care Unavailable STANLEY MENDOSA MD Consulting Unavailable PROVIDER, UNKNOWN Consulting Unavailable PROVIDER, UNKNOWN Consulting Unavailable PROVIDER, UNKNOWN Consulting Unavailable Garret Kidd Primary Care Unavailable Oscar Richards Attending Unavailable Octavio Beckman Attending Unavailable Paintsil, Ector Admitting Unavailable Garret Contreras Primary Care Unavailable Hermes Contreras Consulting Unavailable Eran Mcgee Attending Unavailable Miki Heard Consulting Unavailable Garret Contreras Primary Care Unavailable Garret Kidd Attending Unavailable Garret Kidd Attending Unavailable Garret Kidd Referring Unavailable Garret Contreras Primary Care Unavailable Garret Kidd Attending Unavailable Garret Kidd Referring Unavailable Garret Kidd Primary Care Unavailable Garret Kidd Attending Unavailable Garret Kidd Referring Unavailable Contreras, Garret Primary Care Unavailable Yu Dorado Attending Unavailable Garret Kidd Primary Care Unavailable Yu Dorado Consulting Unavailable Garret Kidd Primary Care Unavailable Oscar Richards Attending Unavailable at [place], [facility] Attending Unavailable Garret Kidd Attending Unavailable Garret Kidd Referring Unavailable Contreras, Garret Primary Care Unavailable Octavio Bullard Attending Unavailable Garret Kidd Referring Unavailable Amandeep Lindquist Attending Unavailable Garret Kidd Referring Unavailable Garret Kidd Attending Unavailable Garret Kidd Referring Unavailable Contreras, Garret Primary Care Unavailable Paintsil, Ector Admitting Unavailable Contreras, Garret Primary Care Unavailable Contreras, Hermes Consulting Unavailable Eran Mcgee Attending Unavailable Miki Heard Consulting Unavailable Paintsil, Ector Admitting Unavailable Contreras, Garret Primary Care Unavailable Contreras, Hermes Consulting Unavailable Eran Mcgee Attending Unavailable Félix, Kombian Consulting Unavailable Paintsil, Ector Attending Unavailable Paintsil, Ector Admitting Unavailable Contreras, Garret Primary Care Unavailable Contreras, Hermes Consulting Unavailable Paintsil, Ector Consulting Unavailable Contreras, Garret Primary Care Unavailable Paintsil, Ector Admitting Unavailable Contreras, Hermes Consulting Unavailable Miki Heard Attending Unavailable Garret Contreras Attending Unavailable Garret Contreras Attending Unavailable Octavio Beckman Attending Unavailable Octavio Beckman Attending Unavailable Yu Dorado Attending Unavailable Garret Kidd Primary Care Unavailable at [place], [facility] Attending Unavailable Yu Dorado Attending Unavailable Garret Kidd Primary Care Unavailable Yu Dorado Attending Unavailable Garret Kidd Primary Care Unavailable Garret Kidd Attending Unavailable Garret Kidd Primary Care Unavailable Garret Kidd Primary Care Unavailable Liam Cadena Attending Unavailable Garret Kidd Attending Unavailable Garret Kidd Referring Unavailable Garret Kidd Primary Care Unavailable Garret Kidd Attending Unavailable Garret Kidd Referring Unavailable Garret Kidd Primary Care Unavailable PROBLEMS PROBLEMS DATE TYPE CONDITION / CODE ATTENDING STATUS SOURCE Unknown N39.0 - Urinary tract Octavio Beckman Active [facility] infection, site not Community specified / Hospital N39.0(ICD-10) Repository Unknown J44.9 - Chronic Octavio Beckman Active [facility] obstructive pulmonary Community disease, unspecified Hospital / J44.9(ICD-10) Repository Unknown E78.5 - Octavio Beckman Active [place] 9 Hyperlipidemia, Community unspecified / Hospital E78.5(ICD-10) Repository Unknown R52 - Pain, Jwayyed, Active [facility] unspecified / [facility] R52(ICD-10) Hospital Repository Unknown R60.9 - Edema, at [place], The Active [place] 8 unspecified / [facility] R60.9(ICD-10) Hospital Repository Unknown R60.0 - Localized at [place], The Active [place] 8 edema / R60.0(ICD-10) [facility] Hospital Repository Unknown I50.9 - Heart Garret Kidd Active [facility] failure, unspecified E Community / I50.9(ICD-10) Hospital Repository Unknown 428.0 - Congestive RenataGarret ryan Active [place] 8 heart failure, E Community unspecified / Hospital 428.0(ICD-9) Repository Unknown E53.8 - Deficiency of Garret Kidd Active [facility] 8 other specified B E Community group vitamins / Hospital E53.8(ICD-10) Repository Unknown 266.2 - Other Garret Kidd Active [place] 8 B-complex E Community deficiencies / Hospital 266.2(ICD-9) Repository Unknown 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 / J189(ICD-10) Hospital Repository Principle Pneumonia, NAVYA BUTROS Active [facility] [address] [facility] / JCritical access hospital(ICD-10) Hospital Repository Admitting Shortness of breath / OMRAN, YASSER Active [facility] 8 Diagnosis R0602(ICD-10) [facility] Repository Principle Sepsis, unspecified OMRAN, YASSER Active [facility] 8 Diagnosis organism / [facility] A419(ICD-10) Hospital Repository Secondary Pneumonia, OMRAN, YASSER Active [facility] [address] [facility] / J189(ICD-10) Hospital Repository Secondary Acute respiratory OMRAN, YASSER Active [facility] 8 Diagnosis failure with [facility] hypercapnia / Hospital J9602(ICD-10) Repository Secondary Chronic obstructive OMRAN, YASSER Active [facility] 8 Diagnosis pulmonary disease [facility] with (acute) Hospital exacerbation / Repository J441(ICD-10) Secondary Chronic obstructive OMRAN, YASSER Active [facility] 8 Diagnosis pulmonary disease [facility] with acute lower Hospital respiratory infection Repository / J440(ICD-10) Secondary Guillain-Topton OMRAN, YASSER Active [facility] 8 Diagnosis syndrome / [facility] G610(ICD-10) Hospital Repository Secondary Other OMRAN, YASSER Active [facility] 8 Diagnosis cardiomyopathies / [facility] I428(ICD-10) Hospital Repository Secondary Chronic systolic OMRAN, YASSER Active [facility] 8 Diagnosis (congestive) heart [facility] failure / Hospital I5022(ICD-10) Repository Secondary Hypertensive heart OMRAN, YASSER Active [facility] 8 Diagnosis disease with heart [facility] failure / Hospital I110(ICD-10) Repository Secondary Major depressive CECIL SHIN Active [facility] 8 Diagnosis disorder, single [facility] episode, unspecified Hospital / F329(ICD-10) Repository Secondary Anxiety disorder, CECIL SHIN Active [facility] 8 Diagnosis unspecified / [facility] F419(ICD-10) Hospital Repository Secondary Hyperlipidemia, CECIL SHIN Active [facility] 8 Diagnosis unspecified / 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 / H9190(ICD-10) Hospital Repository Secondary Alcohol abuse, in CECIL SHIN Active [facility] 8 Diagnosis remission / [facility] F1011(ICD-10) Hospital Repository Secondary Personal history of CECIL SHIN Active [facility] 8 Diagnosis nicotine dependence / 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 RamonfeiaminataEran Active [facility] 8 without myelopathy or Community radiculopathy, lumbar Hospital region / Repository M47.816(ICD-10) Unknown S82.391A - Other PiloMiki brewer Active [place] 8 fracture of lower end Community of right tibia, Hospital initial encounter for Repository closed fracture / S82.391A(ICD-10) Unknown I10 - Essential Garret Contreras Active [place] 8 (primary) Community hypertension / Hospital I10(ICD-10) Repository PROCEDURES PROCEDURES No Procedure Records FoundRESULTS RESULTS URINALYSIS, COMPLETE Collected: 11/12/2018 Status: F Source: [place] 8:00 PM [facility] REPOSITORY Order Comment: How was Urine Obtained? Urine, Random TYPE CODE TESTS RESULT OUT OF RANGE REFERENCE UNITS LAB L400.3000 Yellow COLOR Normal Yellow LAB L400.3050 Clear Normal CLARITY Sl. Cloudy LAB L400.3200 Normal mg/dl Normal GLUCOSE, UR Normal LAB L400.3300 Negative mg/dL Normal BILIRUBIN URINE Negative LAB L400.3400 Negative mg/dl Normal KETONE UR Negative LAB L400.3465 1.002-1.030 Normal SP.GR. DIPSTX 1.015 LAB L400.3550 5.0 - 8.0 pH UR Normal 5.0 LAB L400.3600 Negative mg/dl High PROT 30 DIPSTX LAB L400.3700 Normal mg/dl High 1 UROBILI LAB L400.3750 Negative Normal NITRITE UR Negative LAB L400.3780 Negative /ul Normal OCCULT BLOOD-UR Negative LAB L400.3800 Negative /ul LEUK Normal ESTERASE Negative LAB L400.4050 0-5 /hpf WBC 0 Normal SEEN LAB L400.4100 0-5 /hpf 0 Normal RBC-UA SEEN LAB L400.4150 5-10 /hpf SQUAM 0 Normal EPI SEEN LAB L400.4300 None Seen /hpf 0 Normal BACTERIA SEEN LAB L400.4350 <or=2+ /hpf 0 Normal MUCUS, URINE SEEN LAB L400.4900 1+ Normal AMORPHOUS Performed By: #### L400.0001 #### [facility] [address], [address] Observed: 11/12/2018 Status: F Source: [place] CULTURE, URINE 8:00 PM [facility] REPOSITORY SPECIMEN COLLECTED IN [facility] Urine Culture ORGANISM 1: Mixed Gram Pos AND Gram Neg Org Hope Count 25,000-50,000 MIX CULTURE Mixed contaminants. Submit a new specimen if indicated. Performed By: #### M100.0650 #### [facility] [address] [place], [address] CBC W/DIFF, AUTOMATED Collected: 11/07/2018 Status: F Source: [place] 5:10 AM [facility] REPOSITORY Order Comment: ROOM 103 TYPE CODE TESTS RESULT OUT OF RANGE REFERENCE UNITS LAB L100.1000 4.4-11.0 K/mm3 Normal WBC 5.5 LAB L100.1200 4.2-5.4 M/mm3 Normal RBC 4.62 LAB L100.1300 12.0-15.0 g/dl Normal HGB 13.3 LAB L100.1400 37-47 % Normal HCT 44.8 LAB L100.1500 81-99 fL Normal MCV 97.0 LAB L100.1600 27.0-32.0 pg Normal MCH 28.8 LAB L100.1700 32-36 g/gl Low MCHC 29.7 LAB L100.1810 11.6-14.6 % High RDW CV 17.5 LAB L100.1820 35.1-43.9 fl High RDW SD 59.0 LAB L100.1900 150-450 K/mm3 Normal PLT 264 LAB L100.2000 6.2-12.0 fl Normal MPV 10.5 LAB L100.2100 47-70 % High NEUT% 73.2 LAB L100.2200 19-41 % Low LY% 13.9 LAB L100.2300 0-10 % Normal MONO% 8.2 LAB L100.2400 0-5 % Normal EO% 3.8 LAB L100.2500 0-1 % Normal BASO% 0.7 LAB L100.2550 0.0-0.9 % Normal IM GRAN % 0.200 Result Comment: IG% - Immature Granulocytes (promyelocytes, myelocytes and metamyelocytes) > 1% indicates that a LEFT SHIFT is Present. LAB L100.2620 2.0-7.7 X10 3/uL Normal Absolute Neut 4.0 LAB L100.2720 0.83-4.51 X10 3/ul Low Absolute Lymph 0.76 Performed By: #### L100.0100 #### [facility] [address] [place], [place], [address] COMPREHENSIVE METABOLIC Collected: 10/28/2018 Status: F [facility] REPOSITORY Order Comment: 103 TYPE CODE TESTS RESULT OUT OF RANGE REFERENCE UNITS LAB L501.0100 74-106 mg/dL Normal GLU 80 Result Comment: Please note revised GLUCOSE reference range effective 2017. LAB L501.1000 7-18 mg/dL High BUN 26 LAB L501.1100 0.55-1.02 mg/dL Normal CREAT,SERUM 1.01 Result Comment: The validity of the calculated GFR AND GFRAA in patients over 70 years has not been determined. Clinical correlation is essential. LAB L501.1110 >60 mL/min Low EST GFR 57 Result Comment: Non- GFR Calc LAB L501.1115 >60 mL/min Normal EST GFR - AA 69 Result Comment: GFR Calc LAB L501.1300 10-20 RATIO High BUN/CRE 25.7 LAB L501.1500 6.4-8.2 g/dL T Normal PROT 6.7 LAB L501.1800 3.2-5.0 g/dL Low ALB 3.0 LAB L501.1950 2.2-4.2 g/dL Normal GLOB 3.7 LAB L501.2000 0.9-2.4 RATIO Low A/G 0.8 LAB L501.2200 8.5-10.1 mg/dL CA Normal 8.9 LAB L501.4100 15-37 U/L Normal AST 26 LAB L501.4305 45-117 U/L High ALK P 159 LAB L501.4405 13-56 U/L Normal ALT 22 LAB L501.4600 0.20-1.00 mg/dL High T BILI 1.20 LAB L501.5300 136-145 mmol/L NA Normal 141 LAB L501.5600 3.5-5.1 mmol/L K Normal 3.9 LAB L501.5900 98-107 mmol/L CL Normal 101 LAB L501.6100 21.0-32.0 mmol/L Normal CO2 32.0 LAB L501.6200 5-15 Normal GAP 8 Performed By: #### L500.4050 #### [facility] [address] [place], [address] CBC-COMPLETE BLOOD CNT Collected: 10/28/2018 Status: F Source: [place] NO DIFF 4:30 AM [facility] REPOSITORY Order Comment: 103 TYPE CODE TESTS RESULT OUT OF RANGE REFERENCE UNITS LAB L100.1000 4.4-11.0 K/mm3 Normal WBC 6.8 LAB L100.1200 4.2-5.4 M/mm3 Normal RBC 4.38 LAB L100.1300 12.0-15.0 g/dl Normal HGB 12.8 LAB L100.1400 37-47 % Normal HCT 41.3 LAB L100.1500 81-99 fL Normal MCV 94.3 LAB L100.1600 27.0-32.0 pg Normal MCH 29.2 LAB L100.1700 32-36 g/gl Low MCHC 31.0 LAB L100.1810 11.6-14.6 % High RDW CV 17.5 LAB L100.1820 35.1-43.9 fl High RDW SD 57.4 LAB L100.1900 150-450 K/mm3 Normal PLT 177 LAB L100.2000 6.2-12.0 fl Normal MPV 11.4 Performed By: #### L100.0500 #### [facility] [address] [place], [address] VITAMIN B12 Collected: 10/28/2018 Status: F Source: [place] 4:30 AM [facility] REPOSITORY Order Comment: 103 TYPE CODE TESTS RESULT OUT OF REFERENCE UNITS RANGE LAB L503.0105 211-911 pg/mL High Vitamin B12 1027 Performed By: #### L503.0105 #### [facility] [address] [place], [address] EMERGENCY DEPARTMENT Observed: 10/23/2018 Status: F Source: [place] SUMMARY 11:37 PM [facility] REPOSITORY [facility] Medical Records Department [address] [place] [address] Emergency Department Summary 10/22/18 1210 MR#: [id number] Acct: [id number] Name: ATA ORTIZ Rep #: [id number] : 1945 73 From: Oscar Richards MD PCP: Garret Kidd MD Status: DEP ER - ER Visit Summary Date of Service: 10/22/18 Chief Complaint: [] Fall right head injury right foot injury laceration History of Present Illness: The patient is a 73 F [] resident of [facility] reports he basically was in her usual state of health she was trying to maneuver herself in the restroom she caught her right foot on something suffered a fall right hand, injury right foot with laceration to the base the fourth and fifth toe plantar surface, she had no LOC she has no neck pain chest pain abdominal pain, 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, her general medical condition and neurologic condition are unchanged she has no complaints except as above there is no Physical Examination: [] 120/85 afebrile General, no distress resting comfortably HEENT is markable for a contusion to the right periorbital area, there is a small subconjunctival hemorrhage 7 o'clock to 9 o'clock position position the pupil reacts well her vision is basically normal through confrontation testing she can see everything I put in front of her right eye appropriately and that I she indicates her eye on the right has weaker vision in the left and her vision stable she has a contusion to the right forehead and some bruising to the infraorbital area but no entrapment her left eye is unremarkable her nose and throat unremarkable her head is otherwise unremarkable her neck is nontender The neck is supple no adenopathy Cardiovascular, regular rate and rhythm Lungs, clear bilateral Abdomen, soft nontender Extremities, there is contusion and laceration to the plantar surface of the fourth and fifth toe base her toes are curled when you uncurl these toes the laceration wound margins extend, she has some discomfort to the toes but again she has diffuse numbness and she feels that her toes are numb at baseline not different since the fall Edema bilaterally x-ray Skin is red throughout she states that is normal, her back is unremarkable Neurologic, awake alert answering questions appropriately moving all 4 extremities no neurologic complaints or issues Given all the above she is not on any blood thinners, the head CT is obtained right foot x-rays obtained will discuss case with podiatry The CT head shows nothing acute soft tissue contusion, foot x-ray shows nothing acute no fracture Case was discussed with Dr. Bingham of podiatry the lacerations to the toes fourth and fifth X then from the plantar surface flexion crease across. I explained that they are very difficult to close as her toes have altered anatomy contracted etc. he asked that the closure of the lacerations be approximated to the best degree possible and he will follow-up in the office The patient underwent sterile prep local anesthetic with lidocaine digital block to good effect then copiously washed with Shur-Clens copiously irrigated and then closed with nylon with good approximation of the lacerations to both the fourth and fifth toe total laceration length about 3 cm This to the patient the complex nature of the laceration and the concept of other occult injury or process she understood she will basically be no weightbearing with the boot she uses a walker at baseline or wheelchair she does not really ambulate she indicates she is at a nursing center where she can obtain full care from nurses and she will follow-up with Dr. Bingham she will also follow-up with ophthalmology for the eye injury and her primary care doctor for the head injury and return for change in symptoms The period of observation in the emergency department remains awake and alert stable unremarkable normal neurologic hemodynamic in general medical status Test Results: [] Emergency Department Course and Treatment: [] Treatment Plan: [] Disposition: [] Home stable Impression: [] Fall, head injury, right facial injury, right periorbital injury, complex right foot laceration closed with suture 3 cm total length This note was generated with [employer] dictation software. It may contain incorrect words, spelling, and punctuation that were not noted in review of the chart prior to signing ED Disposition - Plan for ED Patient: Chief Complaint: Fall Referrals: Garret Kidd MD [Primary Care Provider] - What to do if you have Problems For any increased pain, shortness of breath, bleeding, nausea or vomiting, chest pain, or any unexpected problems, contact your Primary Care Provider. Call [facility] ([phone]) or report to the closest Emergency Room. Call 911 if necessary. 10/23/18 9192 <Electronically signed by Oscar Richards MD> Date Oscar Richards MD Cosigner Signature (If Indicated): Date CC: Garret Kidd MD DISCHARGE INSTRUCTION Observed: 10/22/2018 Status: F Source: SIDNEY 3:22 PM [facility] Medical Records Department [address] [place] [address] Discharge Instruction 10/22/18 1521 MR#: [id number] Acct: [id number] Name: ATA ORTIZ Rep #: [id number] : 1945 73 From: Oscar Richards MD PCP: Garret Kidd MD Status: REG ER ED Disposition - Plan for ED Patient: Chief Complaint: Fall Instructions: Suture Care, ED Contusion Eye, ED Mechanical Fall, ED Head Injury Closed, ED Laceration All, ED Laceration Foot, ED Laceration Trunk, ED Prevention Fall Prescriptions: Hydrocodone Bitart/Apap 5-325 [[place] 5MG-325MG] 1 tab PO Q4H PRN PRN 2 Days #10 tab PRN Reason: Pain Referrals: Edd Fam MD [STAFF PHYSICIAN] - Garret Kidd MD [Primary Care Provider] - Conor Bingham DPM [STAFF PHYSICIAN] - Additional Instructions: Walking boot, wound care to the foot, head injury instructions, I instructions follow up with all of the providers were referred to return for change in symptoms up with assistance only while wearing the boot What to do if you have Problems For any increased pain, shortness of breath, bleeding, nausea or vomiting, chest pain, or any unexpected problems, contact your Primary Care Provider. Call [facility] ([phone]) or report to the closest Emergency Room. Call 911 if necessary. 10/22/18 1522 <Electronically signed by Oscar Richards MD> Date Oscar Richards MD Cosigner Signature (If Indicated): Date CC: Garret Kidd MD DISCHARGE INSTRUCTION Observed: 10/22/2018 Status: F Source: YAKOV 1:36 PM [facility] Medical Records Department [address] [place] [address] Discharge Instruction 10/22/18 1332 MR#: [id number] Acct: [id number] Name: ATA ORTIZ Rep #: [id number] : 1945 73 From: Oscar Richards MD PCP: Garret Kidd MD Status: REG ER ED Disposition - Plan for ED Patient: Chief Complaint: Fall Instructions: ED Mechanical Fall, ED Laceration All, ED Prevention Fall, Suture Care, ED Laceration Trunk, ED Laceration Foot, ED Head Injury Closed, ED Contusion Eye Referrals: Garret Kidd MD [Primary Care Provider] - Conor Bingham DPM [STAFF PHYSICIAN] - Edd Fam MD [STAFF PHYSICIAN] - Additional Instructions: Walking boot, wound care to the foot, head injury instructions, I instructions follow up with all of the providers were referred to return for change in symptoms up with assistance only while wearing the boot What to do if you have Problems For any increased pain, shortness of breath, bleeding, nausea or vomiting, chest pain, or any unexpected problems, contact your Primary Care Provider. Call [facility] ([phone]) or report to the closest Emergency Room. Call 911 if necessary. 10/22/18 1336 <Electronically signed by Oscar Richards MD> Date Oscar Richards MD Cosigner Signature (If Indicated): Date CC: Garret Kidd MD BRAIN/HEAD WITHOUT Observed: 10/22/2018 Status: F Source: YAKOV CONTRAST 12:09 PM [facility] Imaging Services [address] [place] [address] Brain/Head without Contrast MR#: [id number] Acct: [id number] Name: ATA ROTIZ Rep #: [id number] : 1945 F 73 From: Antoni Meier MD PCP: Garret Kidd MD Status: REG ER Study: Brain/Head without Contrast Date of Exam: 10/22/18 Exam# [id number] Ordering Dr: Oscar Richards MD STUDY: CT BRAIN WITHOUT CONTRAST REASON FOR EXAM: Female, 73 years old. Facial bruising due to a fall. RADIATION DOSAGE (If Supplied By Facility): CTDIvol = ( 44.99 ) mGy, DLP = ( 762.36 ) mGycm TECHNIQUE: Transaxial CT imaging of the brain was performed without administration of intravenous contrast material. Individualized dose optimization techniques were used for this CT. COMPARISON: Comparison is made with prior study dated August 22, 2018. FINDINGS: There is a moderate-sized scalp hematoma overlying the right frontal bone. Normal calvarium. Once again, there are large retrobulbar tubular structures in both orbits worse on the left side. These most likely represent venous varicosities. There is mild cerebral atrophy with widening of the extra- axial spaces and ventricular dilatation. There are areas of decreased attenuation within the white matter tracts of the supratentorial brain, consistent with microvascular disease changes. Normal basal ganglia and thalami. Normal brainstem. Normal cerebellum. There is no intracranial hemorrhage. There are no findings of an acute ischemic infarction. Atherosclerotic calcification of the cavernous portions of the internal carotid arteries. Normal visualized paranasal sinuses. CT/Brain/Head without Contrast IMPRESSION: Moderate sized scalp hematoma overlying the right frontal bone. The remainder of the examination is unchanged. Electronically Signed: Antoni Meier MD at 13:15 EST Tel [phone], Service support , CC: MD Opal Richards; Garret Kidd MD Ekg Monitor: Signed FOOT MIN 3 VIEWS Observed: 10/22/2018 Status: F Source: YAKOV 12:09 PM [facility] Imaging [place] [address] Foot min 3 Views MR#: [id number] Acct: [id number] Name: ATA ORTIZ Rep #: [id number] : 1945 F 73 From: Antoni Meier MD PCP: Garret Kidd MD Status: REG ER Study: Foot min 3 Views Date of Exam: 10/22/18 Exam# [id number] Ordering Dr: Oscar Richards MD STUDY: X-RAY - RIGHT FOOT CLINICAL: Female, 73 years old. Laceration of the fifth toe due to injury. TECHNIQUE: 3 view(s) of the foot. COMPARISON: Comparison is made with prior study dated August 30, 2018. FINDINGS: There is fusion of the talocalcaneal joint. Generalized osteopenia. Fusion of the talonavicular joint. There is demineralization of the metatarsi. Healed transverse fractures of the distal portion of the second and third metatarsals. Normal metatarsophalangeal joint of the great toe. Normal tibial and fibular sesamoid bones. Normal interphalangeal joint of the great toe. Normal phalanges of the great toe. Normal second through fifth metatarsophalangeal joints. Normal interphalangeal joints and phalanges of the lesser toes. Diffuse soft tissue swelling. Vascular calcification. RAD/Foot min 3 Views IMPRESSION: Diffuse soft tissue swelling and osteopenia. No acute abnormality is seen. Electronically Signed: Antoni Meier MD at 13:18 EST Tel [phone], Service support , CC: MD Opal Richards; Garret Kidd MD Ekg Monitor: Signed EMERGENCY DEPARTMENT Observed: 08/30/2018 Status: F Source: SIDNEY SUMMARY 11:23 PM [facility] Medical Records Department [address] [place] [address] Emergency Department Summary 08/30/18 2315 MR#: [id number] Acct: [id number] Name: ATA ORTIZ Rep #: [id number] : 1945 73 From: Liam Cadena MD PCP: Garret Kidd MD Status: REG ER - ER Visit Summary Date of Service: 08/30/18 Chief Complaint: Injury to left hand, left knee and right foot status post fall History of Present Illness: The patient is a 73 F who has history of frequent falls. She got a new wheelchair. She has had frequent falls since obtaining the new wheelchair. She complains of right foot pain and left knee pain. She also complains of left hand pain. She denied head trauma. She denies neck pain. She denies paresthesia, anesthesia or motor weakness. She denies respiratory or cardiac symptoms. She denies nausea or vomiting. She denies black or maroon stool. There is a past medical history of hypertension, hypercholesterolemia, degenerative joint disease, osteoporosis, depression and anxiety. She also has history of multiple fractures secondary to falls. Physical Examination: Vital signs noted unremarkable. Head is atraumatic normocephalic. Pupils are equal round reactive. Extraocular muscles are intact. TMs are pearly white with landmarks noted. Nares patent with no drainage. Posterior pharynx without erythema or exudate. Uvula is midline. There is no dysphonia or dysphasia. Trachea is midline. There is no stridor with auscultation of the neck. There is no clinical evidence of basal skull fracture. C-spine was cleared per Nexus criteria. Heart is regular. There is no murmur, gallop or rub. Lungs are clear to auscultation. Abdomen is soft nontender. Is no pain the patient of the pelvis. Is no pain palpation of the spinous process of the dorsal lumbar spine. There is swelling with discoloration and pain palpation of the right foot. Difficult to assess DP PT pulse secondary to swelling. Capillary refill is normal. No subungual hematoma noted. Examination left knee reveals soft tissue swelling pain abrasion of the patella concern for prepatellar bursitis. There is a small effusion. There is discomfort with passive flexion extension. There is no laxity with varus valgus stress testing. Scar is noted secondary to prior fracture requiring repair. There is a 4.9 cm laceration webspace between the left thumb and index finger. Median, radial and ulnar function intact. Capillary refill is normal. Sensation of the thumb and index finger are intact. GCS is 15. Patient is alert and oriented 3. Motor is 5/5. Sensation is intact. DTRs are symmetric without clonus or Babinski. Cranial nerves II through XII are intact. Finger to nose to finger was performed adequately. Test Results: Three-view x-ray of the hand interpreted by me as negative for fracture or foreign body. There is osteopenia and significant osteoarthritic changes. Three-view x-ray of the foot was obtained which reveals osteopenia, calcification of vessels and degenerative changes. No fracture is noted. Two-view x-ray of the left knee was obtained and reveals mild effusion. There is no fracture the patella. There is hardware secondary to open reduction internal fixation of proximal tibial fracture. There is erythema and tenderness over the patella suggestive of a prepatellar bursitis most likely traumatic secondary to prior recent falls. Emergency Department Course and Treatment: X-ray of the hand, foot and knee were obtained to rule out fracture and foreign body. The hand laceration was next times 1% lidocaine by local filtration. A total of 3 cc was infiltrated. The wound was irrigated with 200 cc normal saline. Using 5-0 Ethilon multiple simple interrupted sutures were placed with good cosmesis hemostasis. Treatment Plan: Home-going instructions for contusion, fall and laceration Disposition: Discharge to nursing facility Impression: 1. Injury secondary to fall initial encounter 2. Right foot contusion initial encounter 3. Left knee contusion initial encounter 4. Left prepatellar bursitis traumatic 5. 4.9 cm laceration left hand initial encounter This note was generated with [employer] dictation software. It may contain incorrect words, spelling, and punctuation that were not noted in review of the chart prior to signing ED Disposition - Plan for ED Patient: Disposition: Home or Assisted Living Chief Complaint: Laceration Instructions: ED Laceration Hand, ED Contusion Lower Ext, ED Bursitis Referrals: Garret Kidd MD [Primary Care Provider] - 10-14 Days suture removal Additional Instructions: Clean wound with peroxide and Q-tip 3 times a day then apply bacitracin ointment. What to do if you have Problems For any increased pain, shortness of breath, bleeding, nausea or vomiting, chest pain, or any unexpected problems, contact your Primary Care Provider. Call [facility] ([phone]) or report to the closest Emergency Room. Call 911 if necessary. 08/30/18 2323 <Electronically signed by Liam Cadena MD> Date Liam Cadena MD Cosigner Signature (If Indicated): Date CC: Garret Kidd MD KNEE 1 OR 2 VIEWS Observed: 08/30/2018 Status: F Source: SIDNEY 9:07 PM [facility] Imaging Services [address] [place] [address] Knee 1 or 2 Views MR#: [id number] Acct: [id number] Name: Ata Ortiz Rep #: [id number] : 1945 F 73 From: Taco Moore MD PCP: Garret Kidd MD Status: PRE ER Study: Knee 1 or 2 Views Date of Exam: 08/30/18 Exam# [id number] Ordering Dr: Liam Cadena MD STUDY: X-RAY - LEFT KNEE REASON FOR EXAM: Female, 73 years old. Trauma TECHNIQUE: 2 view(s) of the knee. COMPARISON: None. FINDINGS: Normal visualized distal femur. There is an internal fixation plate along the lateral aspect of the tibial plateau to proximal tibial metaphysis. This appears to have stabilized and oblique lateral tibial plateau/lateral tibial metaphysis fracture. There is arthrosis of the proximal tibiofibular articulation. Normal medial femorotibial compartment. Normal lateral femorotibial compartment. Normal patellofemoral articulation. The soft tissue structures are unremarkable. RAD/Knee 1 or 2 Views IMPRESSION: Degenerative and postsurgical changes as detailed above. There is no evidence of acute fracture or dislocation. Electronically Signed: Taco Moore MD at 21:55 EDT , Service support , CC: Garret Kidd MD; Liam Cadena MD Ekg Monitor: Signed HAND MIN 3 VIEWS Observed: 08/30/2018 Status: F Source: SIDNEY 9:07 PM [facility] Imaging Services [address] [place] [address] Hand Min 3 Views MR#: [id number] Acct: [id number] Name: ATA ORTIZ Rep #: [id number] : 1945 F 73 From: Taco Moore MD PCP: Garret Kidd MD Status: REG ER Study: Hand Min 3 Views Date of Exam: 08/30/18 Exam# [id number] Ordering Dr: Liam Cadena MD STUDY: X-RAY - LEFT HAND REASON FOR EXAM: Female, 73 years old. Trauma TECHNIQUE: 3 view(s) of the hand. COMPARISON: None. FINDINGS: Normal radiocarpal articulation. There is an old nonunited ulnar styloid process fracture. There is diffuse demineralization of the carpal bones. Normal carpal articulations There is degenerative arthrosis of the carpometacarpal (CMC) articulation of the thumb. Normal second through fifth carpometacarpal joints. Normal metacarpi. Normal metacarpophalangeal joint of the thumb. Normal interphalangeal joint of the thumb. Normal proximal and distal phalanges of the thumb. Normal metacarpophalangeal joints of the second through fifth fingers. There are severe arthritic changes of the third through fifth PIP joints and second through fifth DLP joints. Normal phalanges of the second through fifth fingers. There is soft tissue swelling of the dorsum of the hand. RAD/Hand Min 3 Views IMPRESSION: Degenerative changes as detailed above. Old nonunited ulnar styloid process fracture. Soft tissue swelling of the dorsum of the hand. Electronically Signed: Taco Moore MD at 22:03 EDT , Service support , CC: Garret Kidd MD; Liam Cadena MD Ekg Monitor: Signed FOOT MIN 3 VIEWS Observed: 08/30/2018 Status: F Source: SIDNEY 9:07 PM [facility] Imaging Services [address] [place] [address] Foot min 3 Views MR#: [id number] Acct: [id number] Name: ATA ORTIZ Rep #: [id number] : 1945 F 73 From: Taco Moore MD PCP: Garret Kidd MD Status: REG ER Study: Foot min 3 Views Date of Exam: 08/30/18 Exam# [id number] Ordering Dr: Liam Cadena MD STUDY: X-RAY - RIGHT FOOT CLINICAL: Female, 73 years old. Trauma TECHNIQUE: 3 view(s) of the foot. COMPARISON: None. FINDINGS: There is fusion of the talocalcaneal joint. There is generalized osteopenia. There is fusion of the talonavicular joint. Normal metatarsi. Normal metatarsophalangeal joint of the great toe. Normal tibial and fibular sesamoid bones. Normal interphalangeal joint of the great toe. Normal phalanges of the great toe. Normal second through fifth metatarsophalangeal joints. Normal interphalangeal joints and phalanges of the lesser toes. Arterial calcifications are noted in the right foot. There is a healed fracture of the distal tibial shaft/metaphysis. RAD/Foot min 3 Views IMPRESSION: Fusion of the talocalcaneal and talonavicular joints. Generalized osteopenia. Healed fracture of the distal tibial shaft/metaphysis. Electronically Signed: Taco Moore MD at 22:06 EDT , Service support , CC: Garret Kidd MD; iLam Cadena MD Ekg Monitor: Signed BASIC METABOLIC Collected: 08/28/2018 Status: F Source: YAKOV PROFILE (BMP) 7:10 AM [facility] Order Comment: ROOM 207 TYPE CODE TESTS RESULT OUT OF RANGE REFERENCE UNITS LAB L501.0100 74-106 mg/dL Normal GLU 106 Result Comment: Fasting Glucose result from 100 to 125 mg/dL suggests IMPAIRED HOMEOSTASIS per A.D.A. criteria. Please note revised GLUCOSE reference range effective 2017. LAB L501.1000 7-18 mg/dL High BUN 20 LAB L501.1100 0.55-1.02 mg/dL Normal CREAT,SERUM 1.02 Result Comment: The validity of the calculated GFR AND GFRAA in patients over 70 years has not been determined. Clinical correlation is essential. LAB L501.1110 >60 mL/min Low EST GFR 56 Result Comment: Non- GFR Calc LAB L501.1115 >60 mL/min Normal EST GFR - AA 68 Result Comment: GFR Calc LAB L501.1300 10-20 RATIO Normal BUN/CRE 19.6 LAB L501.2200 8.5-10.1 mg/dL CA Normal 9.4 LAB L501.5300 136-145 mmol/L NA Normal 142 LAB L501.5600 3.5-5.1 mmol/L K Normal 4.2 LAB L501.5900 98-107 mmol/L Low CL 97 LAB L501.6100 21.0-32.0 mmol/L High CO2 38.0 LAB L501.6200 5-15 Normal GAP 7 Performed By: #### L500.2500 #### [facility] [address] [place], [address] EMERGENCY DEPARTMENT Observed: 08/22/2018 Status: F Source: YAKOV SUMMARY 5:02 PM [facility] Medical Records Department [address] [place] [address] Emergency Department Summary 08/22/18 1012 MR#: [id number] Acct: [id number] Name: ATA ORTIZ Rep #: [id number] : 1945 73 From: Oscar Richards MD PCP: Garret Kidd MD Status: DEP ER - ER Visit Summary Date of Service: 08/22/18 Chief Complaint: [] Fall keshia orbital right eye contusion History of Present Illness: The patient is a 73 F [] patient has no complaints. She lives at [facility], apparently on Sunday she was getting up from the commode and she inadvertently slipped and struck her right face against an object she had no LOC she has had no headache no nausea vomiting fever cough no change in vision no paresthesias the half-way staff became concerned about the periorbital contusion around her eye she was sent to the emergency department. Patient reports her vision her eyes are unremarkable she does note a contusion, she has no head neck chest back paresthesias Physical Examination: [] Total signs are within normal range she is in no distress she has an obvious discolored multicolored right periorbital contusion her pupils are equal round reactive the anterior chambers intact her vision to that eye and the other eye are unremarkable normal, extraocular muscle movements are full the anterior chamber grossly seems to be open and intact without debris again she has no eye pain or eye complaints her HEENT exam is otherwise unremarkable her neck is nontender her lungs are clear the heart tones are normal the abdomen is soft nontender she is moving all 4 extremities she does have 2-3+ lower extremity edema that is chronic her back T-spine lumbar spine unremarkable, and her neurologic exam is completely unremarkable full range of motion normal cranial nerves NIH 0 she is hard of hearing Test Results: [] Emergency Department Course and Treatment: [] There is a concern on the prior half-way related to the fall periorbital edema there is no signs of fracture or extraocular muscle movements are full she is really nontender over the periorbital region of the eye at this time will obtain CT head and reevaluate Head CT per radiology is negative for all acute findings see that report, she is resting currently better status is unchanged she is comfortable discharge home to continue her management we will provide her as a precaution head injury instructions Treatment Plan: [] Disposition: [] Home stable Impression: [] Right facial trauma with periorbital contusion This note was generated with [employer] dictation software. It may contain incorrect words, spelling, and punctuation that were not noted in review of the chart prior to signing ED Disposition - Plan for ED Patient: Chief Complaint: Fall Referrals: Garret Kidd MD [Primary Care Provider] - What to do if you have Problems For any increased pain, shortness of breath, bleeding, nausea or vomiting, chest pain, or any unexpected problems, contact your Primary Care Provider. Call [facility] ([phone]) or report to the closest Emergency Room. Call 911 if necessary. 08/22/18 1702 <Electronically signed by Oscar Richards MD> Date Oscar Richards MD Cosigner Signature (If Indicated): Date CC: Garret Kidd MD DISCHARGE INSTRUCTION Observed: 08/22/2018 Status: F Source: YAKOV 12:05 PM [facility] Medical Records Department [address] [place] [address] Discharge Instruction 08/22/18 1205 MR#: [id number] Acct: [id number] Name: ATA ORTIZ Rep #: [id number] : 1945 73 From: Oscar Richards MD PCP: Garret Kidd MD Status: REG ER ED Disposition - Plan for ED Patient: Chief Complaint: Fall Instructions: ED Head Injury Closed Referrals: Garret Kidd MD [Primary Care Provider] - Additional Instructions: Follow-up with your eye doctor in the next few days What to do if you have Problems For any increased pain, shortness of breath, bleeding, nausea or vomiting, chest pain, or any unexpected problems, contact your Primary Care Provider. Call [facility] ([phone]) or report to the closest Emergency Room. Call 911 if necessary. 08/22/18 1205 <Electronically signed by Oscar Richards MD> Date Oscar Richards MD Cosigner Signature (If Indicated): Date CC: Garret Kidd MD BRAIN/HEAD WITHOUT Observed: 08/22/2018 Status: F Source: SIDNEY CONTRAST 10:12 AM [facility] Imaging Services [address] [place] [address] Brain/Head without Contrast MR#: [id number] Acct: [id number] Name: ATA ORTIZ Rep #: [id number] : 1945 F 73 From: Zeynep Echols PCP: Garret Kidd MD Status: REG ER Study: Brain/Head without Contrast Date of Exam: 08/22/18 Exam# [id number] Ordering Dr: Oscar Richards MD STUDY: CT BRAIN WITHOUT CONTRAST REASON FOR EXAM: Female, 73 years old. FELL ON SUNDAY, BRUISING TO RT EYE, CHF, COPD,HTN,OVARIAN [place] RADIATION DOSAGE (If Supplied By Facility): CTDIvol = ( 44.99 ) mGy, DLP = ( 711.75 ) mGycm TECHNIQUE: Transaxial CT imaging of the brain was performed without administration of intravenous contrast material. Individualized dose optimization techniques were used for this CT. COMPARISON: March 12, 2017 FINDINGS: There is cerebral atrophy with widening of the extra-axial spaces and ventricular dilatation. There are areas of decreased attenuation within the white matter tracts of the supratentorial brain, consistent with microvascular disease changes. There is no intracranial hemorrhage. There are no findings of an acute ischemic infarction. There are large retrobulbar tubular structures greater on the left (coronal image #18 series 601). Findings are likely secondary to enlarged veins. Findings were present on the prior examination to much lesser degree. Normal visualized paranasal sinuses. CT/Brain/Head without Contrast IMPRESSION: No acute intracranial abnormality. Enlarged intraorbital vascularity. Electronically Signed: Zeynep Echols MD at 11:43 EDT Tel , Service support , CC: MD Joseph Jwayyed; Garret Kidd MD Ekg Monitor: Signed BASIC METABOLIC Collected: 08/16/2018 Status: F Source: YAKOV PROFILE (BMP) 5:30 AM [facility] REPOSITORY Order Comment: ROOM 207AL TYPE CODE TESTS RESULT OUT OF RANGE REFERENCE UNITS LAB L501.0100 74-106 mg/dL Normal GLU 93 Result Comment: Please note revised GLUCOSE reference range effective 2017. LAB L501.1000 7-18 mg/dL High BUN 20 LAB L501.1100 0.55-1.02 mg/dL High CREAT,SERUM 1.10 Result Comment: The validity of the calculated GFR AND GFRAA in patients over 70 years has not been determined. Clinical correlation is essential. LAB L501.1110 >60 mL/min Low EST GFR 52 Result Comment: Non- GFR Calc LAB L501.1115 >60 mL/min Normal EST GFR - AA 62 Result Comment: GFR Calc LAB L501.1300 10-20 RATIO Normal BUN/CRE 18.2 LAB L501.2200 8.5-10.1 mg/dL CA Normal 9.2 LAB L501.5300 136-145 mmol/L NA Normal 143 LAB L501.5600 3.5-5.1 mmol/L K Normal 4.1 LAB L501.5900 98-107 mmol/L CL Normal 98 LAB L501.6100 21.0-32.0 mmol/L High CO2 38.0 LAB L501.6200 5-15 Normal GAP 7 Performed By: #### L500.2500 #### [facility] [address] [place], [address] WOUND CTR HISTORY Observed: 07/30/2018 Status: F Source: YAKOV AND PHYSICAL 10:24 AM [facility] REPOSITORY [facility] [address] [place] [address] Wound Ctr History AND Physical 07/30/18 0938 MR#: [id number] Acct: [id number] Name: ATA ORTIZ Rep #: [id number] : 1945 73 From: Yu Dorado CONTROL TECHNICIAN-C PCP: Garret Kidd MD Status: REG RCR Y Location: WC (1) Open wound of second toe of right foot Status: Acute Current Visit: Yes Code(s): S91.104A - Unspecified open wound of right lesser toe(s) without damage to nail, initial encounter (2) Edema of both lower extremities Status: Chronic Current Visit: Yes Code(s): R60.0 - Localized edema (3) Status post fracture of right tibia Status: Chronic Current Visit: No Code(s): Z87.81 - Personal history of (healed) traumatic fracture (4) Deafness Status: Chronic Current Visit: No Code(s): H91.90 - Unspecified hearing loss, unspecified ear (5) Hypertension Status: Chronic Current Visit: No Code(s): I10 - Essential (primary) hypertension History of Present Illness Chief Complaint: Right second toe open wound. Toe had been swollen and ecchymotic last week. History of Wound: Patient is 73 year old female who fractured her tibia in December. She has been in a boot up until last week. She states that she has had a sore on her right second toe which she believes was caused by the boot. She denies any trauma to her right foot/toe area. Last week her right second toe became extremely ecchymotic, swollen and painful and that is when she noticed the open wound. She lives in assisted living. They had been applying antibiotic ointment to her right second toe and covering with a band-aid. Her family took her to a doctor who obtained x-rays which were negative for a fracture of her toe. She uses a wheelchair when she is going out in public or when she is doing a lot of walking. Past Medical History Past Medical History: Chronic Problems Anxiety (Chronic) Depression (Chronic) Deafness (Chronic) Status post fracture of right tibia (Chronic) Edema of both lower extremities (Chronic) Cardiomyopathy (Chronic) NON ISCHEMIC CARDIOMYOPATHY Hypertension (Chronic) Degenerative joint disease (DJD) of lumbar spine (Chronic) Alcohol abuse (Chronic) PATIENT STATES SHE DRINKS 1- 1 1/2 LITERS OF WINE NITELY-THERE WAS NO EVIDENCE OF ANXIETY OR DT'S DURING HER HOSPITAL STAY Tobacco consumption (Chronic) PATIENT SMOKES 1- 1 1/2 PACKS CIGARETTES PER DAY-REFUSED NICOTINE PATCH AND HAD NO SIDE EFFECTS FROM BEING OFF TOBACCO WHILE IN HOSPITAL Hyperlipidemia (Chronic) Surgical History: hysterectomy, - - oophorectomy, ankle surgery, foot surgery, bilateral knee surgery, wrist surgery Allergies/Adverse Reactions: Allergies acetaminophen Allergy (Verified 07/29/18 10:23) Unknown ibuprofen Allergy (Verified 07/29/18 10:23) Swelling Penicillins Allergy (Verified 07/29/18 10:23) Swelling Home Medications: Ambulatory Orders Medication Instructions Recorded Carbamide Peroxide [Ear Wax 3 drop OT QHS 12/24/17 Removal] - Family History Maternal Unknown - Adopted Paternal Unknown - Adopted Smoking Status: Former smoker Review of Systems Constitutional: Denies: Chills, Fever Eyes: Denies: Blurred vision HEENT: Reports: Difficulty Hearing - She has a history of deafness. Cardiovascular: Reports: Edema - bilateral lower extremities. Denies: Chest Pain Respiratory: Denies: Cough, Shortness of Breath Gastrointestinal: Denies: Abdominal Pain, Nausea, Vomiting Musculoskeletal: Reports: Foot Pain - Right second toe pain, Leg Pain - Right lower leg pain- cast removed last week after having fractured tibia in December Skin: Reports: Wounds - Wound on dorsal aspect of right second toe. Neurological: Denies: Balance problems Psychiatric: Denies: Anxiety Endocrine: Denies: Heat/ Cold Intolerance, Polydipsia, Polyuria Hematologic/ Lymphatic: Denies: Easy Bruising, Easy Bleeding - Physical Exam Vital Signs Temp Pulse Resp BP 97.7 F L 106 H 20 H 135/75 H 07/29/18 09:55 07/29/18 09:55 07/29/18 09:55 07/29/18 09:55 General: Alert, Oriented x3, Cooperative HEENT: Atraumatic, PERRLA Oral: Moist Mucosa Lungs: Clear to auscultation, Normal air movement Cardiovascular: Regular rate, Regular Rhythm Extremities: No clubbing, Capillary Refill Less than 3 Seconds, Edema - +2 edema bilateral lower extremities Skin: Ulcer/ Wound - Open area on dorsal aspect of right second toe. Wound Measurements and Assessment WC - Nurse 1 - General Ulcer Measurement Start: 07/29/18 09:54 Freq: Status: Active Protocol: Activity Type Activity Date Activity User E-Sign Co-Sign Detail Recorded Client Recorded Date Recorded By Document 07/29/18 09:55 CARMELLA [id number] 07/29/18 10:16 CARMELLA Wound Center Nurse 1 [Ulcer Assessment] - Nurse 2 - General Ulcer CM Notes Start: 07/29/18 09:54 Freq: Status: Active Protocol: Activity Type Activity Date Activity User E-Sign Co-Sign Detail Recorded Client Recorded Date Recorded By Document 07/29/18 11:18 EBONI [id number] 07/29/18 11:19 EBONI Wound Center Nurse 2 [Procedure/Treatment] #1 R 2nd toe -Correct Patient No -Correct Side, Site, Position No Musculoskeletal: Tenderness - right lower extremity Neurological: Neuro grossly intact Psych/Mental Status: Normal Affect, Appropriate, Alert and oriented to time, place, person, mood and affect Debridement Note Post-Debridement Measurements/Treatment - Nurse 2 - General Ulcer CM Notes Start: 07/29/18 09:54 Freq: Status: Active Protocol: Activity Type Activity Date Activity User E-Sign Co-Sign Detail Recorded Client Recorded Date Recorded By Document 07/29/18 11:18 EBONI [id number] 07/29/18 11:19 EBONI Wound Center Nurse 2 No debridement was completed today Assessment/Plan Active Problems Open wound of second toe of right foot (Acute) Edema of both lower extremities (Chronic) Assessment: 1. Open wound of second toe of right foot. 2. Edema of both lower extremities. 3. Status post fracture of right tibia. 4. Deafness Plan: Patient lives in assisted living. She had a fracture of her right tibia in December in which she had a cast on her right lower leg. The cast was removed last week. She has since noticed her right second toe was swollen, ecchymotic and had an open area on it. The open area is 0.6 x 0.6 x 0.1. Her toe was x-rayed last week and was negative for any fractures at that time. She has been been placing antibiotic ointment on her second toe. She will continue to apply the antibiotic ointment daily and cover with guaze. She will follow up next week for furhter evaluation of this opened area. She had labs drawn 07/24/18 which were unremarkable. She has not been wearing her compression stockings on her right leg because she states it is too painful to put them on since she fratured her lower leg. She had vascular studies on 07/28/18 which showed her KAREEM Right 1.63 and left 1.46. Her digital- brachial index right 1.28 and left 1.17. She had right venous doppler 07/25/18 which was negative for blood clot. She is very interested in Juxtalite compression for her right lower extremity. She will wear her compression stockings on her left leg. She will follow up in one week for further evaluation of her right second toe and to be instructed how to use the Juxtalite compression stockings. Code Visit Office Visits / Consults: [id number] OV L3 New 07/30/18 1024 <Electronically signed by Yu TOMLIN> Date Yu TOMLIN CC: Signed LOWER EXT ARTERIAL Observed: 07/28/2018 Status: F Source: SIDNEY STUDY 3:53 PM [facility] REPOSITORY [facility] [address] [place] [address] 07/28/18 1545 MR#: [id number] Acct: [id number] Name: KATYA ORTIZURBAN Coates Rep #: [id number] : 1945 73 From: Ke Diaz MD Attending Dr: Garret Kidd MD Status: REG CLI Ordering Dr: Date: 07/28/18 Location: [facility] Sex: F C Admitted: Arterial Study - Arterial Study Arterial Study: This is a 73-year-old female with an open ulceration on her toe. Suspecting the presence of atherosclerotic peripheral arterial occlusive disease, the patient was brought to the noninvasive vascular laboratory at this time for the purpose of bilateral noninvasive lower extremity arterial assessment. Doppler signal assessment was used to evaluate the pulses at ankle level bilaterally. The posterior tibial and dorsalis pedis pulses were triphasic bilaterally. Segmental limb pressures were obtained bilaterally. The right ankle pressure, as determined by posterior tibial pulse, was measured at 201 mmHg. The right ankle pressure, as determined by dorsalis pedis pulse, was measured at 153 mmHg. The right digital pressure was measured at 158 mmHg. The left ankle pressure, as determined by posterior tibial pulse, was measured at 179 mmHg. The left ankle pressure, as determined by dorsalis pedis pulse, was measured at 152 mmHg. The left digital pressure was measured at 144 mmHg. Pulse-volume recordings were obtained at ankle and digital levels bilaterally. Waveform amplitudes appeared to be satisfactory bilaterally. Resting ankle-brachial indices were calculated bilaterally. The resting right ankle-brachial index was calculated to be 1.63. The resting left ankle-brachial index was calculated to be 1.46. Digital-brachial indices were calculated bilaterally. The right digital-brachial index was calculated to be 1.28. The left digital-brachial index was calculated to be 1.17. Impression: Based upon findings of this resting noninvasive lower extremity arterial study, there is no evidence of significant atherosclerotic peripheral arterial occlusive disease in the lower extremities bilaterally. Triphasic waveforms were noted at ankle level bilaterally. Resting ankle-brachial indices are supra-normal bilaterally, which is suggestive of arterial calcification rendering the arterial tree noncompressible, or relatively so. In this regard, clinical correlation is advised. Digital-brachial indices are bilaterally normal. 07/28/18 1553 <Electronically signed by Ke Diaz MD> Date Ke Diaz MD CC: Garret Kidd MD Date Dictated: 07/28/18 1545 Date Transcribed: 07/28/18 1545 Ekg Monitor: SANTIAGO Edwards VENOUS DUPLEX LOWER Observed: 07/26/2018 Status: F Source: YAKOV EXTREMITY 12:09 AM [facility]POS[facility] [address] [place] [address] Venous Duplex US, Unilateral 07/25/18 1110 MR#: [id number] Acct: [id number] Name: ATA ORTIZ Rep #: [id number] : 1945 73 From: Ke Diaz MD Attending Dr: Garret Kidd MD Status: REG CLI Ordering Dr: Garret Kidd MD Date: 07/25/18 Location: CVS Sex: F C Admitted: Reason For Study: RLE EDEMA RIGHT GSV is normal. CFV is compressible, spontaneous, phasic, competent and demonstrates normal augmentation. FV is compressible, spontaneous, phasic, competent and demonstrates normal augmentation. POP V is compressible, spontaneous, phasic, competent and demonstrates normal augmentation. T/P Trunk is compressible. PTV is compressible. RT PerV is compressible. NON-VASCULAR structure noted in the right pop fossa area measuring 3.94 cm x 0.963 cm. Procedure The study was technically difficult. Interpretation Summary Deep veins of the right lower extremity are patent and compressible segmentally. There is no evidence of right lower extremity deep vein thrombosis. Valvular competence appears intact within the proximal deep venous system on the right . The right greater saphenous vein appears patent and compressible segmentally. A non-vascular, hypoechoic structure is noted in the right popliteal space, measuring 3.94 cm x 0.963 cm. This probably represents a popliteal cyst. Clinical correlation is advised. Ordering Physician: Garret Kidd Referring Physician: Garret Kidd Performed By: Emily Chavira, RDCS, RVT 07/26/187 Date Ke Diaz MD CC: Garret Kidd MD Date Dictated: 07/25/18 1110 Date Transcribed: 07/26/187 Ekg Monitor: Signed CBC W/DIFF, AUTOMATED Collected: 07/24/2018 Status: F Source: YAKOV 2:10 PM [facility] REPOS[facility] Order Comment: Order Date: 07/24/18 Order Info: [id number] - CBCD TYPE CODE TESTS RESULT OUT OF RANGE REFERENCE UNITS LAB L100.1000 4.4-11.0 K/mm3 Normal WBC 6.1 LAB L100.1200 4.2-5.4 M/mm3 Normal RBC 4.53 LAB L100.1300 12.0-15.0 g/dl Normal HGB 13.0 LAB L100.1400 37-47 % Normal HCT 42.3 LAB L100.1500 81-99 fL Normal MCV 93.4 LAB L100.1600 27.0-32.0 pg Normal MCH 28.7 LAB L100.1700 32-36 g/gl Low MCHC 30.7 LAB L100.1810 11.6-14.6 % High RDW CV 16.9 LAB L100.1820 35.1-43.9 fl High RDW SD 55.1 LAB L100.1900 150-450 K/mm3 Normal PLT 168 LAB L100.2000 6.2-12.0 fl Normal MPV 10.6 LAB L100.2100 47-70 % High NEUT% 79.2 LAB L100.2200 19-41 % Low LY% 11.2 LAB L100.2300 0-10 % Normal MONO% 6.6 LAB L100.2400 0-5 % Normal EO% 2.3 LAB L100.2500 0-1 % Normal BASO% 0.5 LAB L100.2550 0.0-0.9 % Normal IM GRAN % 0.200 Result Comment: IG% - Immature Granulocytes (promyelocytes, myelocytes and metamyelocytes) > 1% indicates that a LEFT SHIFT is Present. LAB L100.2620 2.0-7.7 X10 3/uL Normal Absolute Neut 4.8 LAB L100.2720 0.83-4.51 X10 3/ul Low Absolute Lymph 0.68 Performed By: #### L100.0100, L500.4050, L500.4100, L503.0105 #### [facility] [address] [place], [address] COMPREHENSIVE METABOLIC Collected: 07/24/2018 Status: F Source: YAKOV [facility] 2:10 PM [facility]POS[facility] Order Comment: Order Date: 07/24/18 Order Info: [id number] - CMP Order Info: [id number] - LIPID TYPE CODE TESTS RESULT OUT OF RANGE REFERENCE UNITS LAB L501.0100 74-106 mg/dL Normal GLU 98 Result Comment: Please note revised GLUCOSE reference range effective 2017. LAB L501.1000 7-18 mg/dL High BUN 19 LAB L501.1100 0.55-1.02 mg/dL Normal CREAT,SERUM 0.88 Result Comment: The validity of the calculated GFR AND GFRAA in patients over 70 years has not been determined. Clinical correlation is essential. LAB L501.1110 >60 mL/min Normal EST GFR 67 Result Comment: Non- GFR Calc LAB L501.1115 >60 mL/min Normal EST GFR - AA 81 Result Comment: GFR Calc LAB L501.1300 10-20 RATIO High BUN/CRE 21.7 LAB L501.1500 6.4-8.2 g/dL T Normal PROT 7.0 LAB L501.1800 3.2-5.0 g/dL Normal ALB 3.4 LAB L501.1950 2.2-4.2 g/dL Normal GLOB 3.6 LAB L501.2000 0.9-2.4 RATIO Normal A/G 0.9 LAB L501.2200 8.5-10.1 mg/dL CA Normal 9.3 LAB L501.4100 15-37 U/L Normal AST 20 LAB L501.4305 45-117 U/L Normal ALK P 85 LAB L501.4405 13-56 U/L Normal ALT 23 LAB L501.4600 0.20-1.00 mg/dL T Normal BILI 0.60 LAB L501.5300 136-145 mmol/L NA Normal 142 LAB L501.5600 3.5-5.1 mmol/L K Normal 4.3 LAB L501.5900 98-107 mmol/L CL Normal 103 LAB L501.6100 21.0-32.0 mmol/L Normal CO2 31.0 LAB L501.6200 5-15 Normal GAP 8 Performed By: #### L100.0100, L500.4050, L500.4100, L503.0105 #### [facility] [address] [place], [place], [id number] LIPID PROFILE Collected: 07/24/2018 Status: F Source: YAKOV 2:10 PM [facility] Order Comment: Order Date: 07/24/18 Order Info: [id number] - CMP Order Info: [id number] - LIPID TYPE CODE TESTS RESULT OUT OF RANGE REFERENCE UNITS LAB L501.4900 200 mg/dL Normal CHOL 168 Result Comment: <200 mg/dL Desirable 200-240 mg/dL Borderline >240 mg/dL High Risk LAB L501.5000 mg/dL Normal TRIG 124 Result Comment: The drugs N-Acetylcysteine and Metamizole may falsely depress this assay. Serum Triglycerides Reference Interval Normal <150 mg/dL Borderline high 150 - 199 mg/dL High 200 - 499 mg/dL Very High > or = 500 mg/dL LAB L501.6400 mg/dL Normal HDL 50 Result Comment: The drugs N-Acetylcysteine and Metamizole may falsely depress this assay. Reference Range HDL <40 mg/dL Low HDL Cholesterol HDL >or= 60 mg/dL High HDL Cholesterol LAB L501.6500 0-130 mg/dL Normal LDL 93 LAB L501.6600 5-40 mg/dL Normal VLDL 25 Performed By: #### L100.0100, L500.4050, L500.4100, L503.0105 #### [facility] [address] [place], [place], [address] VITAMIN B12 Collected: 07/24/2018 Status: F Source: SIDNEY 2:10 PM [facility]POS[facility] Order Comment: Order Date: 07/24/18 Order Info: [id number] - B12 TYPE CODE TESTS RESULT OUT OF RANGE REFERENCE UNITS LAB L503.0105 211-911 pg/mL Normal Vitamin B12 910 Performed By: #### L100.0100, L500.4050, L500.4100, L503.0105 #### [facility] [address] [place], [address] TOE(S) MIN 2 VIEWS Observed: 07/17/2018 Status: F Source: SIDNEY 2:40 PM [facility] REPOS[facility] Imaging Services [address] [place] [address] Toe(s) Min 2 Views MR#: [id number] Acct: [id number] Name: ATA ORTIZ Rep #: [id number] : 1945 F 73 From: Philip Harmon MD PCP: Garret Contreras MD Status: REG CLI Study: Toe(s) Min 2 Views Date of Exam: 07/17/18 Exam# [id number] Ordering Dr: Garret Kidd MD STUDY: X-RAY RIGHT FOOT, 2nd TOE REASON FOR EXAM: Female, 73 years old. Second toe ulcer TECHNIQUE: 3 view(s) of the toe were obtained. COMPARISON: None. FINDINGS: The bones are diffusely demineralized. There is no demonstrated fracture or suspicious erosive lesion. There is also no demonstrated soft tissue swelling or subcutaneous emphysema. However, a subtle fracture or erosive lesion could easily be overlooked due to the profound osteopenia. If ulcer or fracture is a strong clinical concern, recommend further evaluation with cross-sectional imaging. RAD/Toe(s) Min 2 Views IMPRESSION: Diffuse osteopenia without demonstrated fracture or erosive lesion. Electronically Signed: Prabhakar Harmon MD at 15:37 EDT , Service support , CC: Garret Kidd MD; Garret Contreras MD Ekg Monitor: Signed CAROTID DUPLEX Observed: 05/11/2018 Status: F Source: SIDNEY ULTRASOUND 3:43 PM [facility] REPOS[facility] [place] [address] [place] [address] Carotid Duplex Ultrasound 05/09/18 1308 MR#: [id number] Acct: [id number] Name: ATA ORTIZ Rep #: [id number] : 1945 73 From: Ke Diaz MD Attending Dr: Garret Kidd MD Status: REG CLI Ordering Dr: Garret Kidd MD Date: 05/09/18 Location: [facility] Sex: F C Admitted: Reason For Study: carotid stenosis Rt. Velocities/BP Lt. Velocities/BP Prox CCA 85.6/19.3 cm/sec. Prox CCA 73.3/14.1 cm/sec. Mid CCA 60.4/16.4 cm/sec. Mid CCA 85.0/19.9 cm/sec. Dist CCA 55.1/19.3 cm/sec. Dist CCA 55.1/14.7 cm/sec. Prox ICA 46.8/14.5 cm/sec. Prox ICA 58.0/19.9 cm/sec. Mid ICA 95.3/31.8 cm/sec. Mid ICA 67.4/25.2 cm/sec. Dist ICA 64.0/15.7 cm/sec. Dist ICA 60.5/23.2 cm/sec. Rt. ICA/CCA = 1.6. Lt. ICA/CCA = .8. Prox ECA 72.1/16.4 cm/sec. Prox ECA 153/13.7 cm/sec. Rt. Vert. 19.3/7.86 cm/sec. Lt. Vert. 29.9/9.38 cm/sec. Right Extracranial There is intimal thickening but no significant atherosclerotic plaque noted in the right common carotid artery. There is heterogeneous, irregular atherosclerotic plaque noted in the right internal carotid artery. There is heterogeneous, irregular atherosclerotic plaque noted in the right external carotid artery. The right external carotid artery is tortuous. Antegrade flow is noted in the right vertebral artery. Left Extracranial There is intimal thickening but no significant atherosclerotic plaque noted in the left common carotid artery. There is heterogeneous, irregular atherosclerotic plaque noted in the left internal carotid artery. The left internal carotid artery is very tortuous. There is heterogeneous, irregular atherosclerotic plaque noted in the left external carotid artery. Antegrade flow is noted in the left vertebral artery. Procedure Carotid Duplex 01484. The exam was diagnostic. Exam performed in department. Interpretation Summary Mild (<50%) stenosis right extracranial internal carotid. Mild (<50%) stenosis left extracranial internal carotid. Flow within the vertebral arteries is antegrade bilaterally. Ordering Physician: Garret Kidd Performed By: Kendell Estrada, T 05/11/18 1542 Date Ke Diaz MD CC: Garret Kidd MD; Garret Contreras MD Date Dictated: 05/09/18 1308 Date Transcribed: 05/11/18 1542 Ekg Monitor: Signed ECHOCARDIOGRAM COMPLETE Observed: 05/09/2018 Status: F Source: YAKOV 5:59 PM [facility] [address] [place] [address] Echo Complete 05/09/18 1350 MR#: [id number] Acct: [id number] Name: ATA ORTIZ Rep #: [id number] : 1945 73 From: Octavio Bullard MD Attending Dr: Garret Kidd MD Status: REG CLI Ordering Dr: Garret Kidd MD Date: 05/09/18 Location: [facility] Sex: F C Admitted: Reason For Study: CHF Procedure This was a 2D Doppler, Color Flow transthoracic echocardiogram. Patient scanned sitting up due to SOB. The study was technically difficult. Contrast injection was performed. Exam performed in department. Left Ventricle Severe segmental systolic dysfunction (see wall motion). The estimated ejection fraction is 25 %. Unable to assess diastolic dysfunction. Infero-Basal: Akinetic. Basal inferoseptal: Akinetic. Basal anteroseptal: Hypokinetic. Mid-Anterior : Hypokinetic. Mid- Lateral : Hypokinetic. Mid-Posterior: Akinetic. Mid-Inferior: Severely Hypokinetic. Mid-inferoseptal : Akinetic. Mid-anteroseptal : Severely Hypokinetic. Anterior [place] : Akinetic. Inferior [place] : Akinetic. Lateral [place] : Akinetic. Septal [place] : Severely Hypokinetic. Right Ventricle Normal RV size. Normal systolic function. Atria Normal left atrium. Normal right atrium. No doppler evidence for ASD. Mitral Valve There is mild mitral annular calcification. Normal mitral valve. Moderate (2+) eccentric mitral valve insufficiency. Tricuspid Valve The tricuspid valve is not well visualized. Trivial tricuspid valve insufficiency. Right ventricular systolic pressure estimated to be 57 mmHg. Aortic Valve The aortic valve is not well visualized. Pulmonic Valve The pulmonic valve is not well visualized. Great Vessels The aortic root is not well visualized. Pericardium/Pleural No pericardial effusion. Medication 22 gauge I.V. with prn adaptor inserted into right arm. Diluted definity 3ml given slow IV push to enhance endocardial definition. MMode/2D Measurements AND Calculations Ao root diam: 3.2 cm LA dimension: 3.7 cm Doppler Measurements AND Calculations MV E max buddy: 96.1 cm/sec Lat Peak E' Buddy: 10.9 cm/sec Med Peak E' Buddy: 8.7 cm/sec MV A max buddy: 108.0 cm/sec E/E' lat: 8.8 E/E' med: 11.0 MV E/A: 0.89 Ao V2 max: 119.2 cm/sec LV V1 max: 71.8 cm/sec PA V2 max: 89.6 cm/sec Ao max P.7 mmHg LV V1 max P.1 mmHg TR max buddy: 323.6 cm/sec TR max P.9 mmHg Interpretation Summary The study was technically difficult. Contrast injection was performed. Severe segmental systolic dysfunction (see wall motion). The estimated ejection fraction is 25 %. There is mild mitral annular calcification. Moderate (2+) eccentric mitral valve insufficiency. Trivial tricuspid valve insufficiency. Right ventricular systolic pressure estimated to be 57 mmHg c/w pulmonary hypertension. Unable to assess diastolic dysfunction. Ordering Physician: Garret Kidd Referring Physician: Garret Contreras M.D. Performed By: Christina Zamudio, [facility] [place] 05/09/18 175 Date Octavio Bullard MD CC: Garret Kidd MD; Garret Contreras MD Date Dictated: 05/09/18 1350 Date Transcribed: 05/09/181757 Ekg Monitor: Signed CHEST PA AND LATERAL Observed: 04/25/2018 Status: F Source: YAKOV 11:17 AM [facility] REPOSIT[facility] Imaging Services [address] [place] [address] Chest PA and Lateral MR#: [id number] Acct: [id number] Name: ATA ORTIZ Rep #: [id number] : 1945 F 73 From: Taco Moore MD PCP: Garret Kidd MD Status: REG CLI Study: Chest PA and Lateral Date of Exam: 04/25/18 Exam# [id number] Ordering Dr: Garret Kidd MD STUDY: X-RAY CHEST REASON FOR EXAM: Female, 73 years old. Pneumonia TECHNIQUE: PA and lateral views of the chest. COMPARISON: Previous study of December 25, 2017 FINDINGS: The lungs are clear and expanded. There is no demonstrated pleural abnormality. There is moderate cardiac enlargement. Normal mediastinum and fazal. Normal visualized pulmonary arteries. Normal visualized aortic arch and descending thoracic aorta. There is demineralization of the osseous structures. Normal visualized ribs, clavicles, and shoulders. There is no demonstrated abnormality of the visualized soft tissue structures of the upper abdomen. RAD/Chest PA and Lateral IMPRESSION: Moderate cardiomegaly. Generalized osteopenia. No acute cardiopulmonary disease process is seen. There has been interval resolution of right-sided effusion noted on the previous study. Electronically Signed: Taco Moore MD at 19:39 EDT , Service support , CC: Garret Kidd MD Ekg Monitor: Signed CHEST WITHOUT Observed: 03/27/2018 Status: F Source: SIDNEY CONTRAST 2:39 PM [facility] Imaging Services [address] [place] [address] Chest without Contrast MR#: [id number] Acct: [id number] Name: ATA ORTIZ Rep #: [id number] : 1945 F 72 From: Aniceto Pearl MD PCP: Garret Contreras MD Status: REG CLI Study: Chest without Contrast Date of Exam: 03/27/18 Exam# [id number] Ordering Dr: Garret Kidd MD STUDY: CT CHEST WITHOUT CONTRAST REASON FOR EXAM: Female, 72 years old. Nodule RADIATION DOSAGE (If Supplied By Facility): CTDIvol = ( 19.09 ) mGy, DLP = ( 576.41 ) mGycm TECHNIQUE: Transaxial imaging was performed without the administration of intravenous contrast material. Individualized dose optimization techniques were used for this CT. COMPARISON: 12.26.17 FINDINGS: There is no pneumothorax. Right lower lobe pneumonia. There is no demonstrated pleural abnormality. There are calcifications of the coronary arteries. There is mild cardiac enlargement. There are multiple small lymph nodes within the mediastinum, which are normal in size and morphology most compatible with reactive lymph hyperplasia. Normal hilar regions. Normal pulmonary arteries. There is atherosclerotic calcification of the aortic arch with tortuosity and elongation of the aortic arch and descending thoracic aorta. Stable compression deformity of T12. There are multi-level degenerative changes of the thoracic spine. There is a hiatal hernia. Stable thickening of the right adrenal gland. 28 x 15 mm left adrenal gland mass. This is -3 Hounsfield units. 14 x 13 mm soft tissue nodule in the left flank. CT/Chest without Contrast IMPRESSION: Right lower lobe pneumonia. Resolution of the right pleural effusion. Stable left adrenal adenoma. Stable thickening of the right adrenal gland. Subcutaneous nodule is noted in the left flank. These may represent granulomas, sebaceous cyst, sequale of previous trauma. Electronically Signed: Aniceto Pearl MD at 17:16 EDT , Service support , CC: Garret Kidd MD; Garret Contreras MD Ekg Monitor: Signed PULMONARY FUNCTION Observed: 03/21/2018 Status: F Source: YAKOV REPORT COMP 6:09 AM [facility] Pulmonary Services/Neurology [address] [place] [address] MR#: [id number] Acct: [id number] Name: ATA ORTIZ Rep #: [id number] : 1945 72 From: Amandeep Lindquist MD Referring Dr: Garret Kidd MD Status: REG CLI Ordering Dr: Date: Location: PSN Sex: F C COMPLETE PULMONARY FUNCTION TEST INTERPRETATION Brief HPI: Patient is a 72 year old female, currently under the care of Dr. Kidd, who presents to [facility] for complete pulmonary function tests secondary to diagnosis of COPD. Respiratory therapist reports good effort and reproducible results. Interpretation: Forced expiration spirometry shows a severe large airways obstructive ventilatory defect with an FEV1 of 44% predicted. There is no significant bronchodilator response by ATS criteria. Spirograms are of good quality and plateau slowly, indicating slowly emptying areas of the lungs. The respiratory flow volume loop shows decreased expiratory flow rates at all lung volumes consistent with airway obstruction. Lung volumes by body plethysmography show an elevated total lung capacity at 6.08 L, 132% predicted. FRC and RV are elevated out of proportion. Lung volume measurements are consistent with hyperinflation and air-trapping. Diffusion capacity by carbon monoxide is decreased at 55% predicted. The airway resistance is elevated. No previous pulmonary function tests were available for review. Impression: Irreversible severe large airways obstructive ventilatory defect with a symmetric reduction diffusing capacity, resulting in air trapping with hyperinflation. These findings are consistent with advanced COPD. 03/21/18608 <Electronically signed by Amandeep Lindquist MD> Date Amandeep Lindquist MD CC: Amandeep Lindquist MD; Garret Kidd MD; Garret Contreras MD Date Dictated: 03/21/18606 Date Transcribed: 03/21/18606 Ekg Monitor: VISHNU Signed CBC W/DIFF, AUTOMATED Collected: 02/27/2018 Status: F Source: SIDNEY 3:17 PM [facility] TYPE CODE TESTS RESULT OUT OF RANGE REFERENCE UNITS LAB L100.1000 4.4-11.0 K/mm3 Normal WBC 7.3 LAB L100.1200 4.2-5.4 M/mm3 Normal RBC 4.29 LAB L100.1300 12.0-15.0 g/dl Normal HGB 12.4 LAB L100.1400 37-47 % Normal HCT 41.2 LAB L100.1500 81-99 fL Normal MCV 96.0 LAB L100.1600 27.0-32.0 pg Normal MCH 28.9 LAB L100.1700 32-36 g/gl Low MCHC 30.1 LAB L100.1810 11.6-14.6 % High RDW CV 18.3 LAB L100.1820 35.1-43.9 fl High RDW SD 61.8 LAB L100.1900 150-450 K/mm3 Normal PLT 171 LAB L100.2000 6.2-12.0 fl Normal MPV 11.5 LAB L100.2100 47-70 % High NEUT% 79.0 LAB L100.2200 19-41 % Low LY% 12.8 LAB L100.2300 0-10 % Normal MONO% 5.7 LAB L100.2400 0-5 % Normal EO% 2.0 LAB L100.2500 0-1 % Normal BASO% 0.4 LAB L100.2550 0.0-0.9 % Normal IM GRAN % 0.100 Result Comment: IG% - Immature Granulocytes (promyelocytes, myelocytes and metamyelocytes) > 1% indicates that a LEFT SHIFT is Present. LAB L100.2620 2.0-7.7 X10 3/uL Normal Absolute Neut 5.8 LAB L100.2720 0.83-4.51 X10 3/ul Normal Absolute Lymph 0.94 Performed By: #### L100.0100 #### [facility] [address] [place], [address] COMPREHENSIVE METABOLIC Collected: 02/27/2018 Status: F Source: [facility] 3:17 PM [facility] TYPE CODE TESTS RESULT OUT OF RANGE REFERENCE UNITS LAB L501.0100 74-106 mg/dL Normal GLU 85 Result Comment: Please note revised GLUCOSE reference range effective 2017. LAB L501.1000 7-18 mg/dL Normal BUN 11 LAB L501.1100 0.55-1.02 mg/dL Normal CREAT,SERUM 0.66 Result Comment: The validity of the calculated GFR AND GFRAA in patients over 70 years has not been determined. Clinical correlation is essential. LAB L501.1110 >60 mL/min Normal EST GFR 93 Result Comment: Non- GFR Calc LAB L501.1115 >60 mL/min Normal EST GFR - AA 112 Result Comment: GFR Calc LAB L501.1300 10-20 RATIO Normal BUN/CRE 16.6 LAB L501.1500 6.4-8.2 g/dL T Normal PROT 7.3 LAB L501.1800 3.2-5.0 g/dL Normal ALB 3.3 LAB L501.1950 2.2-4.2 g/dL Normal GLOB 4.0 LAB L501.2000 0.9-2.4 RATIO Low A/G 0.8 LAB L501.2200 8.5-10.1 mg/dL CA Normal 9.3 LAB L501.4100 15-37 U/L Normal AST 23 LAB L501.4305 45-117 U/L Normal ALK P 91 LAB L501.4405 13-56 U/L Normal ALT 20 LAB L501.4600 0.20-1.00 mg/dL T Normal BILI 0.60 LAB L501.5300 136-145 mmol/L NA Normal 142 LAB L501.5600 3.5-5.1 mmol/L K Normal 4.5 LAB L501.5900 98-107 mmol/L CL Normal 103 LAB L501.6100 21.0-32.0 mmol/L Normal CO2 28.0 LAB L501.6200 5-15 Normal GAP 11 Performed By: #### L500.4050, L501.9520 #### [facility] [address] [place], [place], [id number] THYROID STIM HORMONE Collected: 02/27/2018 Status: F Source: SIDNEY (TSH) 3:17 PM [facility] TYPE CODE TESTS RESULT OUT OF RANGE REFERENCE UNITS LAB L501.9520 0.358-3.74 uIU/mL Normal TSH 1.60 Performed By: #### L500.4050, L501.9520 #### [facility] [address], [address] DISCHARGE SUMMARY Observed: 02/04/2018 Status: F Source: [facility] 10:10 PM [facility] DISCHARGE SUMMARY NAME ACCOUNT SEX AGE ADMIT DISCHARGE PT MED. RECORD# NUMBER DATE DATE TYPE ATA ORTIZ [id number] F 72 01/24/18 01/28/18 1 E [id number] ROOM: [facility] DATE OF : 1945 DICTATING PHYSICIAN: Cecil Shin FINAL DIAGNOSES: 1. Sepsis, resolved. 2. Influenza B. 3. Chronic obstructive pulmonary disease exacerbation. 4. Healthcare-acquired pneumonia. 5. Acute hypercapnia with respiratory failure. 6. Recent right tibia-fibula fracture. 7. Chronic tobacco use. 8. History of alcohol abuse. HISTORY OF PRESENT ILLNESS: This is a 72-year-old female with a past medical history significant for a recent right tibia-fibula fracture followed by Orthopedics, cardiomyopathy, COPD, chronic tobacco use, previous alcohol abuse and Guillain-BarrE syndrome, who resides at the half-way for assisted. She had increasing shortness of breath, hypoxia, and cough. She was brought to the Emergency Room. DIAGNOSTIC DATA: On discharge, white count was 5.7, hemoglobin 12.7, and hematocrit 40.1. Troponins were 0.07 and went up to 0.09 and then 0.06. Sodium was 140, potassium 4.7, CO2 36.2, BUN 28, and creatinine 0.6. Blood cultures with no growth at 72 hours. Influenza B was positive. Chest x-ray, AP, with no significant disease. CT of the chest with PE protocol showed a small right-sided infiltrate. HOSPITAL COURSE: For a full history and physical, please see the chart. For brief summary, see above. Chest x-ray showed a right lower lobe infiltrate. ABGs showed CO2 retention. She was on BiPAP. Blood cultures were obtained. She was started on broad-spectrum IV antibiotics, IV fluids, and admitted to the Special Care Unit. She was on vancomycin and meropenem for sepsis, Tamiflu for influenza B, IV Solu-Medrol, IV fluids, and anxiolytics. She improved. She was switched to oxygen per nasal cannula. She tolerated it well. CO2 improved as well as her shortness of breath. Blood pressure today on the date of discharge was 142/99, heart rate 100, respirations 20, and temperature 98. Oxygen saturation was 96% on two liters. This is a well-nourished, well-developed, 72-year-old female in no acute distress. Lungs with normal respiratory effort on oxygen support. Equal lung expansion. Diminished breath sounds. Heart is a tachycardic rate with a regular rhythm. She will continue her stay at the assisted facility, and she was discharged in stable condition. Time spent on Page 1 of 2 ATA ORTIZ Discharge Summary discharge was 40 minutes. DISCHARGE DESTINATION: [place]. MEDICATIONS ON DISCHARGE: (1) Prednisone 40 mg daily for five days. (2) Acidophilus one tablet daily. (3) Ativan 0.25 mg every six hours p.r.n. for anxiety. (4) Breo Ellipta one inhalation daily. (5) Escitalopram 10 mg daily. (6) Furosemide 40 mg daily. (7) DuoNeb treatments every four hours while awake. (8) Melatonin 1 mg q.p.m. (9) Multivitamin one tablet daily. (10) Vitamin B12 1000 mcg daily. (11) BuSpar 15 mg twice daily. (12) Ranitidine 150 mg twice daily. (13) Trazodone 25 mg q.p.m. (14) Tramadol 50 mg every six hours p.r.n. (15) Enteric-coated aspirin 81 mg daily. (16) Ceftin 500 mg twice daily for seven days. (17) Doxycycline 100 mg twice daily for seven days. (18) Tamiflu 75 mg twice daily for two more doses. Dictated by joleen Tapia for Dr. Shin. I examined the patient myself, the above is accurate E&M done by me Ludy Shin M.D. D: Cecil Shin MD TD: 01/29/18 12:00 JOB #: [id number] Transcribed by: lorenzo Electronically signed by: MIKEY SHIN MD 02/04/18 22:09 Page 2 of 2 ATA ORTIZ Discharge Summary PROGRESS NOTE Observed: 02/04/2018 Status: F Source: [facility] 10:08 PM [facility] PROGRESS NOTE NAME ACCOUNT SEX AGE ADMIT DISCHARGE TYPE MED. RECORD# NUMBER DATE DATE DIAMOND [id number] F 72 01/24/18 1 ATA Coates [id number] ROOM: [facility] DATE OF : 1945 DICTATING PHYSICIAN: Cecil Shin DATE OF SERVICE: January 27, 2018 SUBJECTIVE: Ms. Ortiz is awake and alert. No specific complaints. She does respond appropriately to me. OBJECTIVE: Vital signs have revealed the patient to be afebrile at this point, heart rate 104, and blood pressure 136/87. She is on 2 liters. HEENT: Pupils are equal, round, and reactive. Tongue to midline. Neck was supple. Lungs revealed a few crackles on the right side posteriorly. The heart was regular. Abdomen was soft. Extremities revealed no edema. DIAGNOSTIC DATA: White count is 6.5, hemoglobin 12.7, and hematocrit 38.8. Sodium is 140, potassium 5, chloride 101, bicarbonate 33.3, BUN 24, and creatinine 0.6. ASSESSMENT: 1. Acute respiratory failure, resolved. 2. Influenza B infection. 3. Pneumonia, currently on treatment and improving. PLAN: Continue current measures and reassess the situation for possible discharge tomorrow. D: Cecil Shin MD TD: 01/27/18 21:54 JOB #: [id number] Transcribed by: lorenzo Electronically signed by: MIKEY SHIN MD 02/04/18 22:06 Page 1 of 1 ATA ORTIZ Progress Note PROGRESS NOTE Observed: 02/04/2018 Status: F Source: [facility] 10:03 PM [facility] PROGRESS NOTE NAME ACCOUNT SEX AGE ADMIT DISCHARGE TYPE MED. RECORD# NUMBER DATE DATE DIAMOND [id number] F 72 01/24/18 1 ATA [place] [id number] ROOM: [facility] DATE OF : 1945 DICTATING PHYSICIAN: Cecil Shin DATE OF SERVICE: 01/26/2018 SUBJECTIVE: Ms. Ortiz is doing very well. She is awake, alert, cooperative with the examination. OBJECTIVE: Vital Signs: Have revealed the patient to be afebrile at this point. Highest temperature is 98.7. Blood pressure now is 138/83, respirations 24, heart rate 104. HEENT: Unremarkable. Neck: Supple. Lungs: Revealed fairly clear lung snowden without any wheezing. Heart: Regular. Abdomen: Soft. Extremities: Reveal no edema. DIAGNOSTIC DATA: Laboratory data today has revealed the following: The patient's white count was 5.8, hemoglobin 13.2, hematocrit 40.1, platelets 200. Sodium 141, potassium 4.9, chloride 100, C02 34.5, bun 23, Creatinine 0.7. ASSESSMENT/PLAN: 1. Acute respiratory failure, hypercapnic in nature, treated and improved. The patient is off the BIPAP and appears to be doing very well. 2. Chronic obstructive pulmonary disease exacerbation improving. Influenza B infection complicated by pneumonia, improving at this point with the treatment. Will continue same measures and reassess the situation in the morning. D: Cecil Shin MD TD: 01/26/18 19:33 JOB #: [id number] Transcribed by: mikey Electronically signed by: MIKEY SHIN MD 02/04/18 22:03 Page 1 of 1 ATA ORTIZ Progress Note PROGRESS NOTE Observed: 02/04/2018 Status: F Source: [facility] 10:00 PM [facility] PROGRESS NOTE NAME ACCOUNT SEX AGE ADMIT DISCHARGE TYPE MED. RECORD# NUMBER DATE DATE DIAMOND [id number] F 72 01/24/18 1 ATA [place]ates [id number] ROOM: [facility] DATE OF : 1945 DICTATING PHYSICIAN: Cecil Shin DATE OF SERVICE: 01/25/2018 SUBJECTIVE: The patient is much more awake and alert. She is off the BiPAP and doing well. Saturation is under excellent control. She denied any complaints to me. She reads lips, because she is deaf otherwise. OBJECTIVE: Vital signs have revealed the patient to have a highest temperature of 99. Blood pressure is 135/81, respirations 20, heart rate 101. HEENT: Pupils are round and equally reactive. Normal eye motion. No congestion. No icterus. Tongue to midline. Neck was supple. Lungs reveal bilateral crackles, most prominent on the right side. The abdomen is soft. Extremities reveal no edema. DIAGNOSTIC DATA: Lab data revealed white count of 3.7, hemoglobin 12.8, hematocrit 40, platelets 98,000 which has not changed. Troponins remain the same of 0.06 which is at her baseline. Sodium is 142, potassium 4.7, chloride 98, bicarbonate 36.3, BUN 23, creatinine 0.8. ASSESSMENT: 1. Influenza B infection, complicated by pneumonia. 2. Pneumonia. 3. Acute respiratory failure, hypercapnic. This has improved. 4. Chronic obstructive pulmonary disease exacerbation, has improved. PLAN: Continue current measures. Continue monitoring of the oxygenation. Proceed to do a chest x-ray to follow up on her pulmonary status and reassess the situation for further management in the morning. D: Cecil Shin MD TD: 01/25/18 15:25 JOB #: [id number] Transcribed by: ashley Electronically signed by: MIKEY SHIN MD 02/04/18 22:00 Page 1 of 2 ATA ORTIZ Progress Note Page 2 of 2 ATA ORTIZ Progress Note HISTORY AND PHYSICAL Observed: 02/04/2018 Status: F Source: [facility] EXAM 9:56 PM [facility] HISTORY & PHYSICAL NAME ACCOUNT SEX AGE ADMIT DISCHARGE TYPE MED. RECORD# NUMBER DATE DATE DIAMOND [id number] F 72 01/24/18 1 ATA [place]ates [id number] ROOM: [facility] DATE OF : [birth year] DICTATING PHYSICIAN: Cceil Shin CHIEF COMPLAINT: Shortness of breath and cough. HISTORY OF PRESENT ILLNESS: This is a 72-year-old female with recent right ankle fracture. She was admitted to [facility] in December for rehabilitation. She also has a history of cardiomyopathy, hypertension, Guillain-Topton, and chronic systolic congestive heart failure. She started to have shortness of breath, cough, and wheezing at the half-way. She was diagnosed with pneumonia. She had a chest x-ray yesterday due to the cough. She was started on Zithromax. She started to have hypoxemia, tachypnea, respiratory rate went up into the 30s, and the squad was called when her oxygen saturation was down into the 70s and she was taken to the emergency room. In the emergency room, pulse ox was 72% on room air. She was tachypneic. Chest x-ray showed right lower lobe infiltrate. ABGs were completed with pH of 7.30, pCO2 of 82, pO2 of 63, and bicarbonate of 40. The patient was on BiPAP due to Co2 retention. Blood cultures were obtained. She was started on broad spectrum IV antibiotics and IV fluid resuscitation. PAST MEDICAL HISTORY: (1) Right tibia-fibula fracture followed by orthopedics. (2) Nonischemic cardiomyopathy with last echocardiogram March of 2017 with ejection fraction of 30% with moderate mitral valve insufficiency. (3) Hypertension. (4) COPD. (5) History of tachyarrhythmia. (6) Osteoarthritis lumbar spine. (7) History of alcohol abuse. (8) Tobacco abuse. (9) Dyslipidemia. (10) Anxiety. (11) Depression. (12) Deafness. (13) History of ovarian cancer. (14) Chronic systolic congestive heart failure. (15) Guillain-Topton syndrome. (16) Chronic hypoxemia. PAST SURGICAL HISTORY: Total abdominal hysterectomy. MEDICATIONS: Current medications at the half-way (1) Acidophilus 1 tablet daily. (2) Aspirin 325 mg daily. (3) Ativan 0.25 mg every 8 hours p.r.n. (4) Breo Ellipta 1 inhalation daily. (5) Escitalopram 10 mg daily. (6) Furosemide 40 mg daily. (7) DuoNeb treatment every 4 hours p.r.n. (8) Melatonin 1 mg every p.m. (9) Multivitamin 1 tablet daily. (10) Tamiflu 30 mg daily. (11) Vitamin B12 1000 mcg daily. (12) Buspar 15 mg twice daily. (13) Ranitidine 150 mg twice daily. (14) Tramadol 50 mg every 6 hours p.r.n. (15) Trazodone 25 mg every p.m. ALLERGIES: Penicillin, acetaminophen, and ibuprofen. FAMILY HISTORY: She was adopted. Unknown family history. Page 1 of 3 ATA ORTIZ History & Physical SOCIAL HISTORY: The patient is . She is a former smoker. She used to smoke up to 3 packs per day and she drank more than 7 alcohol drinks per week. REVIEW OF SYSTEMS: According to her records, she had shortness of breath, hypoxemia, increased respiratory rate, cough, and was diagnosed with pneumonia in the half-way. PHYSICAL EXAMINATION GENERAL APPEARANCE: The patient was lying in bed in no acute distress. VITAL SIGNS: Blood pressure 113/72, heart rate 74, respirations 26, temperature 99.0, oxygen saturation 93% on BiPAP, and weight 221 pounds with BMI of 39.78. HEENT: Unremarkable. NECK: Neck is supple. No nodes, masses, or JVD. No bruits. LUNGS: Increased respiratory effort on BiPAP, equal lung expansion with crackles bilaterally. HEART: Tachy rate with regular rhythm. ABDOMEN: Soft, and nontender. EXTREMITIES: Free of edema. DIAGNOSTIC DATA: Laboratory studies: White count 5.0, hemoglobin 13.2, hematocrit 41.0, platelets 98,000, neutrophils 84.3. Troponin is 0.07 and went up to 0.09. BNP is 1172. Lactate 13.3. BUN 29, creatinine 0.9, Co2 38. Urinalysis shows negative nitrites, negative leukocytes. Influenza B positive. ABGs: pH is 7.30, pCO2 82, pO2 63, bicarbonate of 40. IMPRESSION: 1. Sepsis secondary to acute infection with influenza B and pneumonia. 2. Influenza B. 3. Chronic obstructive pulmonary disease. 4. Health-care acquired pneumonia. 5. Acute hypercapnic respiratory failure. PLAN: The patient was admitted to the Special Care Unit on broad spectrum IV antibiotics with meropenem and vancomycin for sepsis, as well as Tamiflu 75 mg p.o. b.i.d. to treat influenza. She was started on IV Solu-Medrol 60 mg IV every 8 hours, BiPAP for respiratory failure, IV fluid resuscitation, and anxiolytics. The patient's condition is guarded. All other medical conditions appear stable. Page 2 of 3 ATA ORTIZ History & Physical Dictated by joleen Wolfe for Cecil Shin M.D. I examined the patient myself, the above is accurate E&M done by me Ludy Shin M.D. D: Cecil Shin MD TD: 01/24/18 17:16 JOB #: [id number] Transcribed by: am Electronically signed by: MIKEY SHIN MD 02/04/18 21:56 Update to H&P: [ ] No changes: I have examined the patient and reviewed the H&P and there are no changes. [ ] As previously dictated with the following changes: PHYSICIAN SIGNATURE: TIME: DATE: Page 3 of 3 ATA ORTIZ History & Physical CBC (NO DIFF) Collected: 02/04/2018 Status: F Source: [facility]ARTY 3:10 [facility] REPOSITORY TYPE CODE TESTS RESULT OUT OF RANGE REFERENCE UNITS LAB CBC (NO DIFF)(LOINC ) CBC (NO DIFF) Result Comment: CBC(WITHOUT DIFFERENTIAL) LAB WBC(LOINC) 4.5 - 10.8 x 10EE3/UL WBC 7.7 LAB RBC(LOINC) 4.10 - x 10EE6/UL 5.30 RBC 4.65 LAB HEMOGLOBIN(LOINC 12.0 - g/dl ) 16.0 HEMOGLOBIN 13.4 LAB HEMATOCRIT(LOINC 34.0 - % ) 46.0 HEMATOCRIT 41.8 LAB MCV(LOINC) 80 - 99 fl MCV 90 LAB MCH(LOINC) 27 - 33 pg MCH 29 LAB MCHC(LOINC) 32 - 36 X10 3 MCHC 32 LAB RDW/CV(LOINC) 12.0 - % 15.6 RDW/CV High 18.0 LAB PLATELET(LOINC) 150 - 450 x10EE3/UL PLATELET 188 LAB MPV(LOINC) 6.6 - 10.5 fl MPV High 11.1 Result Comment: {CB] Performed By: #### [id number] #### [place] [id number] BMP WITH EGFR Collected: 02/04/2018 Status: F Source: [facility] 3:10 AM [facility] TYPE CODE TESTS RESULT OUT OF RANGE REFERENCE UNITS LAB BMP with eGFR(LOINC) BMP with eGFR Result Comment: BASIC METABOLIC PANEL LAB SODIUM(LOINC) 136 - 145 mmol/l SODIUM 144 LAB POTASSIUM(LOINC) 3.5 - 5.1 mmol/L POTASSIUM 4.3 LAB CHLORIDE(LOINC) 98 - 107 mmol/L CHLORIDE Low 95 LAB CO2(LOINC) 21.0 - mmol/L 31.0 CO2 High 44.2 LAB GLUCOSE(LOINC) 74 - 106 mg/dl GLUCOSE 97 LAB BUN(LOINC) 6 - 20 mg/dl BUN High 21 LAB CREATININE(LOINC) 0.6 - 1.2 mg/dl CREATININE 0.6 LAB CALCIUM(LOINC) 8.6 - mg/dl 10.2 CALCIUM 9.3 LAB ANION GAP(LOINC) 10 - 20 mmol/L ANION Low GAP 9 LAB AGE(LOINC) years AGE 72 LAB eGFR(LOINC) 60 - 999 ML/MINUTE eGFR >60 LAB eGFR(AA)(LOINC) 60 - 999 ML/MINUTE eGFR(AA) >60 Result Comment: ACCORDING TO THE NATIONAL KIDNEY DISEASE EDUCATION PROGRAM(NKDE), A NORMAL eGFR IS A VALUE GREATER THAN OR EQUAL TO 60 ML/MIN/1.73 SQ METERS. CHRONIC KIDNEY DISEASE: <60mL/MIN/1.73 SQ METERS KIDNEY FAILURE: <15mL/MIN/1.73 SQ METERS THIS TEST SHOULD ONLY BE USED FOR PATIENTS 18 YEARS OF AGE AND OLDER. Performed By: #### [id number] #### [place] [id number] EMERGENCY REPORT Observed: 01/28/2018 Status: F [facility] EMERGENCY ROOM REPORT NAME ACCOUNT SEX AGE ADMIT DISCHARGE TYPE MED. RECORD# NUMBER DATE DATE DIAMOND [id number] F 72 01/24/18 Sondra Coates [id number] ROOM: [facility] DATE OF : 1945 PHYSICIAN: Eran Miller Date seen is January 24, 2018 at 4:02 a.m. HISTORY OF PRESENT ILLNESS: This is a 72-year-old female complaining of shortness of breath, cough, and wheezing for the past several days. She does reside in a half-way, and apparently she was diagnosed with pneumonia yesterday, and started on Zithromax. However, tonight, her oxygen saturation started to drop and respiratory rate went up to a rate of 30. The half-way called EMS because the patient's O2 saturation this morning were in the 70s. The patient does have a history of a recent right tibia-fibula fracture, and she does wear a boot. She states that she has smoked most of her life and quit about 1 year ago. PAST MEDICAL HISTORY: She does have a past medical history of COPD. She has had a history of ovarian cancer in the past. She reportedly has had multiple orthopedic surgeries in the past. She has a history of congestive heart failure and hypertension. ALLERGIES: She is allergic to penicillin, ibuprofen, and acetaminophen. SOCIAL HISTORY: She does reside in a half-way. REVIEW OF SYSTEMS: Positive shortness of breath, cough, or wheezing. The patient denies any chest pain, abdominal pain, nausea, vomiting, diarrhea, constipation, melena or hematochezia, headache, or numbness. She does admit to some diffuse generalized weakness. Denies any fever, sweats, or chills. Further review of systems is negative. PHYSICAL EXAMINATION: Vital signs showed a temperature of 98.2, pulse 103, respirations 24, blood pressure 108/87, pulse ox was 72% on room air. The patient was transported here by ambulance with oxygen. Her saturations were in the mid 90s on oxygen. The patient is alert and oriented to name and place. She is somewhat disoriented to time. HEENT: Head appears atraumatic. Pupils are equal and reactive to light. Red reflex intact bilaterally. Extraocular muscles are intact. No conjunctival injection. No scleral icterus or lid edema. Nose exhibits no rhinorrhea or epistaxis. Mouth: Mucous membranes are mildly dry. No pharyngeal erythema. Uvula is midline and elevates. Neck is supple. Trachea is midline. No JVD or lymphadenopathy. No posterior cervical tenderness. No nuchal rigidity. Lungs: Demonstrate diminished breath sounds in all lung snowden both anteriorly and posteriorly with bilateral expiratory Page 1 of 2 ATA ORTIZ Emergency Room Report wheezing. I do notice some crackles in the left lung snowden both anteriorly and posteriorly. The patient does exhibit some mild accessory muscle use. CV: Heart rate and rhythm is regular with distant heart sounds. No murmur noted. Abdomen is soft and nontender with normoactive bowel sounds x4 quadrants. No guarding or rigidity. No rebound. No palpable abdominal masses. No hepatosplenomegaly. Extremities: The patient does move all 4 extremities somewhat weak, but appear to be symmetrically weak. No edema or cyanosis. She does have a Unna boot on the right lower leg consistent with a history of a recent tibia-fibula fracture. Peripheral pulses are intact. The patient has good sensation to light touch to all digits of both feet. Capillary refill less than 2 seconds. Neurologic examination shows the patient to be alert and oriented to name and place, somewhat disoriented to time and situation. She does also appear to be hard of hearing. The patient is pleasant, cooperative with a mildly flat affect. Skin is warm and dry. No diaphoresis or rash. DIAGNOSTIC DATA: Chest x-ray shows COPD and cardiomegaly with a question of a right lower lobe infiltrate noted. Arterial blood gas on 3 liters nasal cannula showed a pH of 7.30, pCO2 of 82, pO2 of 63, bicarbonate 40, O2 saturation 87%. EMERGENCY DEPARTMENT COURSE AND TREATMENT: Presently, we are giving the patient a unit dose aerosol treatments and we are getting ready to place the patient on BiPAP due to her retaining with a Co2 of 82. Presently, I do have blood cultures pending and do have blood work pending. PLAN/DISPOSITION: I do anticipate admission. We will then reevaluate. D: Eran Miller DO TD: 01/24/18 13:27 JOB #: [id number] Transcribed by: am Electronically signed by: E-Sign: Dr. Eran Miller D.O. 01/28/18 05:53 Page 2 of 2 ATA ORTIZ Emergency Room Report EMERGENCY REPORT Observed: 01/28/2018 Status: F Source: [facility] 5:52 AM [facility] EMERGENCY ROOM REPORT NAME ACCOUNT SEX AGE ADMIT DISCHARGE TYPE MED. RECORD# NUMBER DATE DATE DIAMOND [id number] Linus 72 01/24/18 1 ATA Coates [id number] ROOM: [facility] DATE OF : 1945 PHYSICIAN: Eran Miller ADDENDUM DIAGNOSTIC DATA: The bloodwork showed a white count of 5000 with a hemoglobin of 13.2, hematocrit of 41, and platelet count of 98,000. Lactate was normal at 13.3. BNP was elevated at 1172. Troponin was 0.07. Sodium was 140, potassium 4.3, chloride 94, CO2 of 38, BUN 29, and creatinine 0.9. Liver functions all came back within normal limits. Anion gap was 12. We do have blood cultures pending. Influenza came back positive for influenza B. Blood gas on 3 liters of oxygen showed a pH of 7.3, pCO2 of 82, pO2 of 63, bicarbonate of 40, and oxygen saturation of 87%. EMERGENCY DEPARTMENT COURSE AND TREATMENT: We have placed her on BiPAP. I did give her Rocephin and Zithromax and also gave her Tamiflu 75 mg p.o. I discussed the case with Dr. Shin. We are going to admit to his service. The only thing we have pending is a CT of the chest to rule out a PE simply because she has the cast on her right lower leg from the tibia-fibula fracture. DIAGNOSES: 1. Acute respiratory failure. 2. Acute exacerbation of chronic obstructive pulmonary disease. 3. Right lower lobe pneumonia. D: Eran Miller DO TD: 01/24/18 13:59 JOB #: [id number] Transcribed by: lorenzo Electronically signed by: E-Sign: Dr. Eran Miller D.O. 01/28/18 05:52 Page 1 of 1 ATA ORTIZ Emergency Room Report CBC Collected: 01/28/2018 Status: F Source: [facility] 4:33 AM [facility] REPOSITORY TYPE CODE TESTS RESULT OUT OF RANGE REFERENCE UNITS LAB CBC(LOINC) CBC Result Comment: CBC-COMPLETE BLOOD COUNT LAB WBC(LOINC) 4.5 - 10.8 x 10EE3/UL WBC 5.7 LAB RBC(LOINC) 4.10 - x 10EE6/UL 5.30 RBC 4.48 LAB HEMOGLOBIN(LOINC 12.0 - g/dl ) 16.0 HEMOGLOBIN 12.7 LAB HEMATOCRIT(LOINC 34.0 - % ) 46.0 HEMATOCRIT 40.1 LAB MCV(LOINC) 80 - 99 fl MCV 89 LAB MCH(LOINC) 27 - 33 pg MCH 28 LAB MCHC(LOINC) 32 - 36 X10 3 MCHC 32 LAB RDW/CV(LOINC) 12.0 - % 15.6 RDW/CV High 17.6 LAB PLATELET(LOINC) 150 - 450 x10EE3/UL PLATELET Low 101 LAB MPV(LOINC) 6.6 - 10.5 fl MPV 10.3 Result Comment: AUTOMATED DIFFERENTIAL LAB NEUT %(LOINC) 46.0 - 76.0 % NEUT % High 86.8 LAB LYMPH %(LOINC) 20.0 - 45.0 % Low LYMPH % 4.5 LAB MONOS %(LOINC) 0.0 - 10.0 % MONOS % 8.6 LAB EO %(LOINC) 0.0 - 7.0 % EO % 0.0 LAB BASO %(LOINC) 0.0 - 2.0 % BASO % 0.1 LAB Lymph #(LOINC) 0.80 - 2.80 x10EE3/U Low L Lymph # 0.30 LAB Neut #(LOINC) 1.50 - 7.10 x10EE3/U L Neut # 5.00 LAB Ren[place] #(LOINC) 0.20 - 1.00 x10EE3/U L [place] # 0.50 LAB EO #(LOINC) 0.00 - 0.50 x10EE3/U L EO # 0.00 LAB Baso #(LOINC) 0.00 - 0.10 x10EE3/U L Baso # 0.00 LAB MANUAL DIFF(LOINC) MANUAL DIFF N/A LAB MORPHOLOGY(LOINC ) MORPHOLOGY N/A Result Comment: {CD] Performed By: #### [id number] #### [facility],[address] [place] [address] BMP WITH EGFR Collected: 01/28/2018 Status: F Source: [facility] 4:33 AM [facility] REPOSITORY TYPE CODE TESTS RESULT OUT OF RANGE REFERENCE UNITS LAB BMP with eGFR(LOINC) BMP with eGFR Result Comment: BASIC METABOLIC PANEL LAB SODIUM(LOINC) 136 - 145 mmol/l SODIUM 140 LAB POTASSIUM(LOINC) 3.5 - 5.1 mmol/L POTASSIUM 4.7 LAB CHLORIDE(LOINC) 98 - 107 mmol/L CHLORIDE 99 LAB CO2(LOINC) 21.0 - mmol/L 31.0 CO2 High 36.2 LAB GLUCOSE(LOINC) 74 - 106 mg/dl GLUCOSE High 135 LAB BUN(LOINC) 6 - 20 mg/dl BUN High 28 LAB CREATININE(LOINC) 0.6 - 1.2 mg/dl CREATININE 0.6 LAB CALCIUM(LOINC) 8.6 - mg/dl 10.2 CALCIUM 9.4 LAB ANION GAP(LOINC) 10 - 20 mmol/L ANION GAP 10 LAB AGE(LOINC) years AGE 72 LAB eGFR(LOINC) 60 - 999 ML/MINUTE eGFR >60 LAB eGFR(AA)(LOINC) 60 - 999 ML/MINUTE eGFR(AA) >60 Result Comment: ACCORDING TO THE NATIONAL KIDNEY DISEASE EDUCATION PROGRAM(NKDE), A NORMAL eGFR IS A VALUE GREATER THAN OR EQUAL TO 60 ML/MIN/1.73 SQ METERS. CHRONIC KIDNEY DISEASE: <60mL/MIN/1.73 SQ METERS KIDNEY FAILURE: <15mL/MIN/1.73 SQ METERS THIS TEST SHOULD ONLY BE USED FOR PATIENTS 18 YEARS OF AGE AND OLDER. Performed By: #### [id number] #### [facility],[address] [place] [address] CBC Collected: 01/27/2018 Status: F Source: [facility] 5:05 AM [facility] REPOSITORY TYPE CODE TESTS RESULT OUT OF RANGE REFERENCE UNITS LAB CBC(LOINC) CBC Result Comment: CBC-COMPLETE BLOOD COUNT LAB WBC(LOINC) 4.5 - 10.8 x 10EE3/UL WBC 6.5 LAB RBC(LOINC) 4.10 - x 10EE6/UL 5.30 RBC 4.39 LAB HEMOGLOBIN(LOINC 12.0 - g/dl ) 16.0 HEMOGLOBIN 12.7 LAB HEMATOCRIT(LOINC 34.0 - % ) 46.0 HEMATOCRIT 38.8 LAB MCV(LOINC) 80 - 99 fl MCV 88 LAB MCH(LOINC) 27 - 33 pg MCH 29 LAB MCHC(LOINC) 32 - 36 X10 3 MCHC 33 LAB RDW/CV(LOINC) 12.0 - % 15.6 RDW/CV High 17.8 LAB PLATELET(LOINC) 150 - 450 x10EE3/UL PLATELET Low 101 LAB MPV(LOINC) 6.6 - 10.5 fl MPV High 11.1 Result Comment: AUTOMATED DIFFERENTIAL LAB NEUT %(LOINC) 46.0 - 76.0 % NEUT % High 89.2 LAB LYMPH %(LOINC) 20.0 - 45.0 % Low LYMPH % 4.6 LAB MONOS %(LOINC) 0.0 - 10.0 % MONOS % 5.9 LAB EO %(LOINC) 0.0 - 7.0 % EO % 0.0 LAB BASO %(LOINC) 0.0 - 2.0 % BASO % 0.3 LAB Lymph #(LOINC) 0.80 - 2.80 x10EE3/U Low L Lymph # 0.30 LAB Neut #(LOINC) 1.50 - 7.10 x10EE3/U L Neut # 5.80 LAB Reno #(LOINC) 0.20 - 1.00 x10EE3/U L [place] # 0.40 LAB EO #(LOINC) 0.00 - 0.50 x10EE3/U L EO # 0.00 LAB Baso #(LOINC) 0.00 - 0.10 x10EE3/U L Baso # 0.00 LAB MANUAL DIFF(LOINC) MANUAL DIFF N/A LAB MORPHOLOGY(LOINC ) MORPHOLOGY N/A Result Comment: {CD] Performed By: #### [id number] #### [facility],[address] [place] [address] BMP WITH EGFR Collected: 01/27/2018 Status: F Source: [facility] 5:05 [facility] REPOSITORY TYPE CODE TESTS RESULT OUT OF RANGE REFERENCE UNITS LAB BMP with eGFR(LOINC) BMP with eGFR Result Comment: BASIC METABOLIC PANEL LAB SODIUM(LOINC) 136 - 145 mmol/l SODIUM 140 LAB POTASSIUM(LOINC) 3.5 - 5.1 mmol/L POTASSIUM 5.0 LAB CHLORIDE(LOINC) 98 - 107 mmol/L CHLORIDE 101 LAB CO2(LOINC) 21.0 - mmol/L 31.0 CO2 High 33.3 LAB GLUCOSE(LOINC) 74 - 106 mg/dl GLUCOSE High 128 LAB BUN(LOINC) 6 - 20 mg/dl BUN High 24 LAB CREATININE(LOINC) 0.6 - 1.2 mg/dl CREATININE 0.6 LAB CALCIUM(LOINC) 8.6 - mg/dl 10.2 CALCIUM 9.3 LAB ANION GAP(LOINC) 10 - 20 mmol/L ANION GAP 11 LAB AGE(LOINC) years AGE 72 LAB eGFR(LOINC) 60 - 999 ML/MINUTE eGFR >60 LAB eGFR(AA)(LOINC) 60 - 999 ML/MINUTE eGFR(AA) >60 Result Comment: ACCORDING TO THE NATIONAL KIDNEY DISEASE EDUCATION PROGRAM(NKDE), A NORMAL eGFR IS A VALUE GREATER THAN OR EQUAL TO 60 ML/MIN/1.73 SQ METERS. CHRONIC KIDNEY DISEASE: <60mL/MIN/1.73 SQ METERS KIDNEY FAILURE: <15mL/MIN/1.73 SQ METERS THIS TEST SHOULD ONLY BE USED FOR PATIENTS 18 YEARS OF AGE AND OLDER. Performed By: #### [id number] #### [facility],[address] [place] [address] BMP WITH EGFR Collected: 01/26/2018 Status: F Source: [facility] 5:55 AM [facility] REPOSITORY TYPE CODE TESTS RESULT OUT OF RANGE REFERENCE UNITS LAB BMP with eGFR(LOINC) BMP with eGFR Result Comment: BASIC METABOLIC PANEL LAB SODIUM(LOINC) 136 - 145 mmol/l SODIUM 141 LAB POTASSIUM(LOINC) 3.5 - 5.1 mmol/L POTASSIUM 4.9 LAB CHLORIDE(LOINC) 98 - 107 mmol/L CHLORIDE 100 LAB CO2(LOINC) 21.0 - mmol/L 31.0 CO2 High 34.5 LAB GLUCOSE(LOINC) 74 - 106 mg/dl GLUCOSE High 127 LAB BUN(LOINC) 6 - 20 mg/dl BUN High 23 LAB CREATININE(LOINC) 0.6 - 1.2 mg/dl CREATININE 0.7 LAB CALCIUM(LOINC) 8.6 - mg/dl 10.2 CALCIUM 9.5 LAB ANION GAP(LOINC) 10 - 20 mmol/L ANION GAP 11 LAB AGE(LOINC) years AGE 72 LAB eGFR(LOINC) 60 - 999 ML/MINUTE eGFR 82 LAB eGFR(AA)(LOINC) 60 - 999 ML/MINUTE eGFR(AA) 99 Result Comment: ACCORDING TO THE NATIONAL KIDNEY DISEASE EDUCATION PROGRAM(NKDE), A NORMAL eGFR IS A VALUE GREATER THAN OR EQUAL TO 60 ML/MIN/1.73 SQ METERS. CHRONIC KIDNEY DISEASE: <60mL/MIN/1.73 SQ METERS KIDNEY FAILURE: <15mL/MIN/1.73 SQ METERS THIS TEST SHOULD ONLY BE USED FOR PATIENTS 18 YEARS OF AGE AND OLDER. Performed By: #### [id number] #### [facility],[address] [place] [id number] CBC Collected: 01/26/2018 Status: F Source: [facility] 5:55 AM [facility] REPOSITORY TYPE CODE TESTS RESULT OUT OF RANGE REFERENCE UNITS LAB CBC(LOINC) CBC Result Comment: CBC-COMPLETE BLOOD COUNT LAB WBC(LOINC) 4.5 - 10.8 x 10EE3/UL WBC 5.8 LAB RBC(LOINC) 4.10 - x 10EE6/UL 5.30 RBC 4.50 LAB HEMOGLOBIN(LOINC 12.0 - g/dl ) 16.0 HEMOGLOBIN 13.2 LAB HEMATOCRIT(LOINC 34.0 - % ) 46.0 HEMATOCRIT 40.1 LAB MCV(LOINC) 80 - 99 fl MCV 89 LAB MCH(LOINC) 27 - 33 pg MCH 29 LAB MCHC(LOINC) 32 - 36 X10 3 MCHC 33 LAB RDW/CV(LOINC) 12.0 - % 15.6 RDW/CV High 18.0 LAB PLATELET(LOINC) 150 - 450 x10EE3/UL PLATELET Low 100 LAB MPV(LOINC) 6.6 - 10.5 fl MPV 10.3 Result Comment: AUTOMATED DIFFERENTIAL LAB NEUT %(LOINC) 46.0 - % 76.0 NEUT % 87.8 High LAB LYMPH %(LOINC) 20.0 - % Low 45.0 LYMPH % 5.9 LAB MONOS %(LOINC) 0.0 - 10.0 % MONOS % 6.2 LAB EO %(LOINC) 0.0 - 7.0 % EO % 0.0 LAB BASO %(LOINC) 0.0 - 2.0 % BASO % 0.1 LAB Lymph #(LOINC) 0.80 - x10EE3/ Low 2.80 UL Lymph # 0.30 LAB Neut #(LOINC) 1.50 - x10EE3/ 7.10 UL Neut # 5.10 LAB Reno #(LOINC) 0.20 - x10EE3/ 1.00 UL Ren[place] # 0.40 LAB EO #(LOINC) 0.00 - x10EE3/ 0.50 UL EO # 0.00 LAB Baso #(LOINC) 0.00 - x10EE3/ 0.10 UL Baso # 0.00 LAB MANUAL DIFF(LOINC) MANUAL DIFF N/A LAB MORPHOLOGY(LOIN C) MORPHOLOGY REVIEWED Result Comment: {CD] Performed By: #### [id number] #### [place] [id number] VANCOMYCIN PEAK Collected: 01/25/2018 Status: F Source: [facility] 12:35 PM [facility] REPOSITORY TYPE CODE TESTS RESULT OUT OF RANGE REFERENCE UNITS LAB VANCOMYCIN, 20.0 - 40.0 ug/mL PEAK(LOINC) 23.6 VANCOMYCIN,P EAK Performed By: #### [id number] #### [place] [id number] CHEST 1 VIEW Observed: 01/25/2018 Status: F Source: [facility] 9:31 AM [facility] REPOSITORY [place] [id number] Patient: ATA ORTIZ Phone#: : [phone] Age: 72 Gender: F Pt. Type: In Account: [id number] Location: [facility] Ordering: CECIL SHIN Exam Date: 01/25/2018/9:16 Family Phys: STANLEY MENDOSA Charge Code: [id number] Physician: [place] Order #: [id number] DLP Dose#: PROCEDURE: X-RAY CHEST 1 VIEW COMPARISON: [facility] [place], XR, CHEST 1 VIEW, 01/24/2018, 4:52. INDICATIONS: Pneumonia FINDINGS: LUNGS: Normal. No significant pulmonary parenchymal abnormalities. VASCULATURE: Increased pulmonary vascularity. CARDIAC: Cardiomegaly. MEDIASTINUM: Normal. No visible mass or adenopathy. PLEURA: Normal. No effusion or pleural thickening. BONES: Normal. No fracture or visible bony lesion. OTHER: Monitoring leads project [place]. CONCLUSION: 1. Cardiomegaly and increased pulmonary vascularity, findings suspicious for CHF Dictated by: Monse Cesar MD on 01/25/2018 at 10:45 Approved by: Monse Cesar MD on 01/25/2018 at 10:45 CBC Collected: 01/25/2018 Status: F Source: [facility] 9:15 AM [facility] REPOSITORY TYPE CODE TESTS RESULT OUT OF RANGE REFERENCE UNITS LAB CBC(LOINC) CBC Result Comment: CBC-COMPLETE BLOOD COUNT LAB WBC(LOINC) 4.5 - 10.8 x 10EE3/UL WBC Low 3.7 LAB RBC(LOINC) 4.10 - x 10EE6/UL 5.30 RBC 4.48 LAB HEMOGLOBIN(LOINC 12.0 - g/dl ) 16.0 HEMOGLOBIN 12.8 LAB HEMATOCRIT(LOINC 34.0 - % ) 46.0 HEMATOCRIT 40.0 LAB MCV(LOINC) 80 - 99 fl MCV 89 LAB MCH(LOINC) 27 - 33 pg MCH 29 LAB MCHC(LOINC) 32 - 36 X10 3 MCHC 32 LAB RDW/CV(LOINC) 12.0 - % 15.6 RDW/CV High 18.0 LAB PLATELET(LOINC) 150 - 450 x10EE3/UL PLATELET Low 98 LAB MPV(LOINC) 6.6 - 10.5 fl MPV High 10.6 Result Comment: AUTOMATED DIFFERENTIAL LAB NEUT %(LOINC) 46.0 - 76.0 % NEUT % High 83.9 LAB LYMPH %(LOINC) 20.0 - 45.0 % Low LYMPH % 9.2 LAB MONOS %(LOINC) 0.0 - 10.0 % MONOS % 6.8 LAB EO %(LOINC) 0.0 - 7.0 % EO % 0.0 LAB BASO %(LOINC) 0.0 - 2.0 % BASO % 0.1 LAB Lymph #(LOINC) 0.80 - 2.80 x10EE3/U Low L Lymph # 0.30 LAB Neut #(LOINC) 1.50 - 7.10 x10EE3/U L Neut # 3.10 LAB Reno #(LOINC) 0.20 - 1.00 x10EE3/U L [place] # 0.30 LAB EO #(LOINC) 0.00 - 0.50 x10EE3/U L EO # 0.00 LAB Baso #(LOINC) 0.00 - 0.10 x10EE3/U L Baso # 0.00 LAB MANUAL DIFF(LOINC) MANUAL DIFF N/A LAB MORPHOLOGY(LOINC ) MORPHOLOGY N/A Result Comment: {CD] Performed By: #### [id number] #### [place] [id number] VANCOMYCIN TROUGH Collected: 01/25/2018 Status: F Source: [facility] 9:15 AM [facility] REPOSITORY TYPE CODE TESTS RESULT OUT OF RANGE REFERENCE UNITS LAB VANCOMYCIN, 10.0 - 15.0 ug/mL TROUGH(LOIN Low C) 7.6 VANCOMYCIN,T ROUGH Performed By: #### [id number] #### [place] [id number] BMP WITH EGFR Collected: 01/25/2018 Status: F Source: [facility] 9:15 [facility] REPOSITORY TYPE CODE TESTS RESULT OUT OF RANGE REFERENCE UNITS LAB BMP with eGFR(LOINC) BMP with eGFR Result Comment: BASIC METABOLIC PANEL LAB SODIUM(LOINC) 136 - 145 mmol/l SODIUM 142 LAB POTASSIUM(LOINC) 3.5 - 5.1 mmol/L POTASSIUM 4.7 LAB CHLORIDE(LOINC) 98 - 107 mmol/L CHLORIDE 98 LAB CO2(LOINC) 21.0 - mmol/L 31.0 CO2 High 36.3 LAB GLUCOSE(LOINC) 74 - 106 mg/dl GLUCOSE High 171 LAB BUN(LOINC) 6 - 20 mg/dl BUN High 23 LAB CREATININE(LOINC) 0.6 - 1.2 mg/dl CREATININE 0.8 LAB CALCIUM(LOINC) 8.6 - mg/dl 10.2 CALCIUM 9.3 LAB ANION GAP(LOINC) 10 - 20 mmol/L ANION GAP 12 LAB AGE(LOINC) years AGE 72 LAB eGFR(LOINC) 60 - 999 ML/MINUTE eGFR >60 LAB eGFR(AA)(LOINC) 60 - 999 ML/MINUTE eGFR(AA) >60 Result Comment: ACCORDING TO THE NATIONAL KIDNEY DISEASE EDUCATION PROGRAM(NKDE), A NORMAL eGFR IS A VALUE GREATER THAN OR EQUAL TO 60 ML/MIN/1.73 SQ METERS. CHRONIC KIDNEY DISEASE: <60mL/MIN/1.73 SQ METERS KIDNEY FAILURE: <15mL/MIN/1.73 SQ METERS THIS TEST SHOULD ONLY BE USED FOR PATIENTS 18 YEARS OF AGE AND OLDER. Performed By: #### [id number] #### [place] [address] TROPONIN Collected: 01/24/2018 Status: F Source: [facility] 8:55 PM [facility] REPOSITORY TYPE CODE TESTS RESULT OUT OF REFERENCE UNITS RANGE LAB TROPONIN 0.00 - 0.05 ng/ml I(LOINC) High TROPONIN I 0.06 Result Comment: Elevated troponin (above the 99th percentile) usually indicates myocardial ischemia. Results must be interpreted within the clinical setting. 1.Non-ischemic pathology can also cause elevated troponin levels (e.g., acute pulmonary embolism, myocarditis, pericarditis, heart failure, intracranial injury, rhabdomyolisis, sepsis, shock and renal insufficiency). 2.Approximately 1% of healthy adults have elevated troponin levels. 3.Analytical false positive results rarely occur(due to multiple interferences such as heterophile antibodies). Performed By: #### [id number] #### [place] [id number] TROPONIN Collected: 01/24/2018 Status: F Source: [facility] 2:45 PM [facility] REPOSITORY TYPE CODE TESTS RESULT OUT OF REFERENCE UNITS RANGE LAB TROPONIN 0.00 - 0.05 ng/ml I(LOINC) High Alert TROPONIN I 0.07 Result Comment: { CALLED TO Walter CONTRERAS AT 1526 { READ BACK BY Walter CONTRERAS RA 1525 DJB Elevated troponin (above the 99th percentile) usually indicates myocardial ischemia. Results must be interpreted within the clinical setting. 1.Non-ischemic pathology can also cause elevated troponin levels (e.g., acute pulmonary embolism, myocarditis, pericarditis, heart failure, intracranial injury, rhabdomyolisis, sepsis, shock and renal insufficiency). 2.Approximately 1% of healthy adults have elevated troponin levels. 3.Analytical false positive results rarely occur(due to multiple interferences such as heterophile antibodies). Performed By: #### [id number] #### [place] [id number] TROPONIN Collected: 01/24/2018 Status: F Source: [facility] 11:54 AM [facility] REPOSITORY TYPE CODE TESTS RESULT OUT OF REFERENCE UNITS RANGE LAB TROPONIN 0.00 - 0.05 ng/ml I(LOINC) High Alert TROPONIN I 0.09 Result Comment: { CALLED TO suzan/Torsten { READ BACK BY candido/aminata/shruthi Elevated troponin (above the 99th percentile) usually indicates myocardial ischemia. Results must be interpreted within the clinical setting. 1.Non-ischemic pathology can also cause elevated troponin levels (e.g., acute pulmonary embolism, myocarditis, pericarditis, heart failure, intracranial injury, rhabdomyolisis, sepsis, shock and renal insufficiency). 2.Approximately 1% of healthy adults have elevated troponin levels. 3.Analytical false positive results rarely occur(due to multiple interferences such as heterophile antibodies). Performed By: #### [id number] #### [facility],[address] [place] [address] URINALYSIS Collected: 01/24/2018 Status: F Source: [facility] 9:01 [facility] REPOSITORY TYPE CODE TESTS RESULT OUT OF REFERENCE UNITS RANGE LAB URINALYSIS (LOINC) URINALYSIS Result Comment: URINALYSIS LAB Specimen Type(LOINC) Specimen Type Void LAB Color(LOINC) NORMAL: YELLOW Color joni LAB Clarity(LOINC) NORMAL: CLEAR Clarity sl.cloudy LAB ph(LOINC) NORMAL: 5.0-8.0 ph 5 LAB Protein(LOINC) NORMAL: NEGATIVE Protein Abnormal 100 LAB Glucose(LOINC) NORMAL: NORMAL Glucose NORM LAB Ketone(LOINC) NORMAL: NEGATIVE Ketone NEG LAB Bilirubin(LOINC) NORMAL: NEGATIVE Bilirubin NEG LAB Blood(LOINC) NORMAL: NEGATIVE Blood Abnormal 25 LAB Urobilinog(LOINC) NORMAL: NORMAL Urobilinog Abnormal 1 LAB Sp Raymond(LOINC) NORMAL: 1.010-1.030 Sp Raymond 1.015 LAB Nitrite(LOINC) NORMAL: NEGATIVE Nitrite NEG LAB Leukocytes(LOINC) NORMAL: NEGATIVE Leukocytes NEG LAB Microscopic(LOINC ) Microscopic SEE BELOW Result Comment: MICROSCOPIC LAB Wbc(LOINC) 0-5/hpf Wbc NONE LAB Rbc(LOINC) 0-3/hpf Rbc 0-5 LAB Casts(LOINC) Casts NONE LAB Crystals(LOINC) Crystals NONE LAB Amorphous(LOINC) Amorphous NONE LAB Bacteria(LOINC) Bacteria TRACE LAB Epi Cells(LOINC) Epi Cells FEW LAB Mucous(LOINC) Mucous NONE LAB Yeast(LOINC) Yeast NONE Performed By: #### [id number] #### [facility],[address] [place] [address] CT CHEST (PE PROTOCOL) Observed: 01/24/2018 Status: F Source: [facility] 7:16 AM [place] [address] Patient: ATA ORTIZ Phone#: : [phone] Age: 72 Gender: F Pt. Type: ER Account: [id number] Location: [facility] Ordering: ERAN MILLER Exam Date: 01/24/2018/7:04 Family Phys: STANLEY MENDOSA Charge Code: [id number] Physician: [place] Order #: [id number] DLP Dose#: [id number] PROCEDURE: CT CHEST WITH CONTRAST FOR PE COMPARISON: None. INDICATIONS: Shortness of Breath TECHNIQUE: After obtaining the patient's consent, CT images were obtained with non-ionic intravenous contrast material. Multi-planar images were created to optimize visualization of vascular anatomy with MPR/MIPS and 3D imaging. All CT scans at this facility use dose modulation, iterative reconstruction, and/or weight based dosing when appropriate to reduce radiation dose to as low as reasonably achievable. IV CONTRAST: Omnipaque 350,80ml TOTAL DOSE: 9.00 CTDIvol(mGy) FINDINGS: VASCULATURE: Normal. No visible pulmonary arterial thrombus or attenuation. AORTA: Normal. No aneurysm or dissection. LUNGS: There is some outer space opacity in the right base. Lungs otherwise are clear. FAZAL: Normal. No mass or adenopathy. MEDIASTINUM: Normal. No mass or adenopathy. CARDIAC: Moderately enlarged. No pericardial effusion. PLEURA: There is a small right-sided pleural effusion CHEST WALL: Normal. No mass or axillary adenopathy. LIMITED ABDOMEN: Normal. Limited images of the upper abdomen are unremarkable. BONES: Normal. No bony lesion or fracture. OTHER: Negative. CONCLUSION: 1. No pulmonary loss. Continued Report - Page 2 of 2 Patient: ATA ORTIZ Phone#: : [phone] Age: 72 Gender: F Pt. Type: ER Account: [id number] Location: 052 Ordering: ERAN MILLER Exam Date: 01/24/2018/7:04 Family Phys: STANLEY MENDOSA Charge Code: [id number] Physician: [place] Order #: [id number] DLP Dose#: 9.00 2. Small right-sided pleural effusion with some compressive atelectasis, superimposed pneumonia is not excluded. 3. Moderate cardiac enlargement Dictated by: Conor Bell MD on 01/24/2018 at 11:02 Approved by: Conor Bell MD on 01/24/2018 at 11:02 CHEST 1 VIEW Observed: 01/24/2018 Status: F Source: [facility]ERGUSON 5:25 AM [facility] REPOSITORY [place] [address] Patient: ATA ORTIZ Phone#: : 1945 Age: 72 Gender: F Pt. Type: ER Account: [id number] Location: 052 Ordering: ERAN MILLER Exam Date: 01/24/2018/4:52 Family Phys: STANLEY MENDOSA Charge Code: [id number] Physician: [place] Order #: [id number] DLP Dose#: PROCEDURE: X-RAY CHEST 1 VIEW COMPARISON: None. INDICATIONS: Shortness of Breath FINDINGS: LUNGS: Normal. No significant pulmonary parenchymal abnormalities. VASCULATURE: Normal. Unremarkable pulmonary vasculature. CARDIAC: Moderate enlargement of the cardiac silhouette. MEDIASTINUM: Normal. No visible mass or adenopathy. PLEURA: Normal. No effusion or pleural thickening. BONES: Normal. No fracture or visible bony lesion. OTHER: Negative. CONCLUSION: 1. Moderate cardiac silhouette enlargement, clear lungs. Dictated by: Conor Bell MD on 01/24/2018 at 10:54 Approved by: Conor Bell MD on 01/24/2018 at 10:54 ARTERIAL BLOOD GAS Collected: 01/24/2018 Status: F Source: [facility]ERGUSON ANALYSIS 5:00 AM [facility] REPOSITORY TYPE CODE TESTS RESULT OUT OF REFERENCE UNITS RANGE LAB ARTERIAL BLOOD GAS ANALYSIS(LOINC ) ARTERIAL BLOOD GAS ANALYSIS Result Comment: ARTERIAL BLOOD GAS LAB pH(LOINC) 7.35 - 7.45 Low 7.30 pH LAB PCO2(LOINC) 35 - 45 mm Hg High Alert 82 PCO2 Result Comment: { CALLED TO DR MILLER [id number] { READ BACK BY DR MILLER AT 0507 LAB PO2(LOINC) 80 - 105 mm Hg Low PO2 63 LAB HCO3(LOINC) 20 - 24 mmol/L High HCO3 40 LAB BE(LOINC) -2 - 3 High BE 14 LAB SaO2(LOINC) 95 - 98 Low SaO2 87 Result Comment: TIME RESULT CALLED _0507 01/24/18.0503.EFREN. { FIO2/LPM 3L LAB MODALITY(LOINC) MODALITY NC LAB SPO2(LOINC) SPO2 90 LAB TOTAL RR(LOINC) TOTAL RR 36 LAB PULSE(INC) PULSE 109 LAB SAMPLE SITE([facility]) SAMPLE SITE RR LAB VENT([facility]) VENT N/A LAB ALLENS TEST([facility]) ALLENS TEST POS Result Comment: { TIME CALLED 0507 Performed By: #### [id number] #### [facility],[address] [place] [address] CBC Collected: 01/24/2018 Status: F Source: [facility] 5:00 AM [facility] REPOSITORY TYPE CODE TESTS RESULT OUT OF RANGE REFERENCE UNITS LAB CBC(INC) CBC Result Comment: CBC-COMPLETE BLOOD COUNT LAB WBC(LOINC) 4.5 - 10.8 x 10EE3/UL WBC 5.0 LAB RBC(LOINC) 4.10 - x 10EE6/UL 5.30 RBC 4.57 LAB HEMOGLOBIN(LOINC 12.0 - g/dl ) 16.0 HEMOGLOBIN 13.2 LAB HEMATOCRIT(LOINC 34.0 - % ) 46.0 HEMATOCRIT 41.0 LAB MCV(LOINC) 80 - 99 fl MCV 90 LAB MCH(LOINC) 27 - 33 pg MCH 29 LAB MCHC(LOINC) 32 - 36 X10 3 MCHC 32 LAB RDW/CV(LOINC) 12.0 - % 15.6 RDW/CV High 17.7 LAB PLATELET(LOINC) 150 - 450 x10EE3/UL PLATELET Low 98 LAB MPV(LOINC) 6.6 - 10.5 fl MPV 10.3 Result Comment: AUTOMATED DIFFERENTIAL LAB NEUT %(LOINC) 46.0 - 76.0 % NEUT % High 84.3 LAB LYMPH %(LOINC) 20.0 - 45.0 % Low LYMPH % 5.2 LAB MONOS %(LOINC) 0.0 - 10.0 % MONOS % High 10.1 LAB EO %(LOINC) 0.0 - 7.0 % EO % 0.2 LAB BASO %(LOINC) 0.0 - 2.0 % BASO % 0.2 LAB Lymph #(LOINC) 0.80 - 2.80 x10EE3/U Low L Lymph # 0.30 LAB Neut #(LOINC) 1.50 - 7.10 x10EE3/U L Neut # 4.20 LAB Reno #(LOINC) 0.20 - 1.00 x10EE3/U L [place] # 0.50 LAB EO #(LOINC) 0.00 - 0.50 x10EE3/U L EO # 0.00 LAB Baso #(LOINC) 0.00 - 0.10 x10EE3/U L Baso # 0.00 LAB MANUAL DIFF(LOINC) MANUAL DIFF N/A LAB MORPHOLOGY(LOINC ) MORPHOLOGY N/A Result Comment: {CD] Performed By: #### [id number] #### [place] [address] Observed: 01/24/2018 Status: F Source: [facility] INFLUENZA VIRUS RAPID 5:00 [facility] A/B REPOSITORY INFLUENZA A NEGATIVE INFLUENZA B POSITIVE INTERNAL NEG QC PASS INTERNAL POS QC PASS EXTERNAL QC DONE? YES A NEGATIVE TEST RESULT DOES NOT EXCLUDE INFECTION WITH INFLUENZA A OR B. THEREFORE, THE RESULTS OBTAINED FROM THIS FLU TEST SHOULD BE USED IN CONJUCTION WITH CLINICAL FINDINGS TO MAKE AN ACCURATE DIAGNOSIS. INDIVIDUALS WHO HAVE RECEIVED NASALLY ADMINISTERED INFLUENZA A VACCINE MAY TEST POSITIVE IN COMMERCIALLY AVAILABLE INFLUENZA RAPID DIAGNOSTIC TESTS FOR UP TO THREE DAYS. Performed By: #### [id number] #### [place] [address] LACTATE Collected: 01/24/2018 Status: F Source: OLAF LengowCALEB 5:00 [facility] REPOSITORY TYPE CODE TESTS RESULT OUT OF REFERENCE UNITS RANGE LAB LACTATE(JOSE 4.5 - 18.0 mg/dL NC) LACTATE 13.3 Performed By: #### [id number] #### [facility],[address] [place] [address] CMP WITH EGFR Collected: 01/24/2018 Status: F Source: [facility] 5:00 AM [facility] REPOSITORY TYPE CODE TESTS RESULT OUT OF RANGE REFERENCE UNITS LAB CMP with eGFR(LOINC) CMP with eGFR Result Comment: COMPREHENSIVE METABOLIC PANEL LAB SODIUM(LOINC) 136 - 145 mmol/l SODIUM 140 LAB POTASSIUM(LOINC) 3.5 - 5.1 mmol/L POTASSIUM 4.3 LAB CHLORIDE(LOINC) 98 - 107 mmol/L CHLORIDE Low 94 LAB CO2(LOINC) 21.0 - mmol/L 31.0 CO2 High 38.0 LAB GLUCOSE(LOINC) 74 - 106 mg/dl GLUCOSE 106 LAB BUN(LOINC) 6 - 20 mg/dl BUN High 29 LAB CREATININE(LOINC) 0.6 - 1.2 mg/dl CREATININE 0.9 LAB AST/SGOT(LOINC) 13 - 39 U/L AST/SGOT High 47 LAB ALK PHOS(LOINC) 38 - 126 U/L ALK PHOS 106 LAB CALCIUM(LOINC) 8.6 - mg/dl 10.2 CALCIUM 9.5 LAB TOTAL 6.4 - 8.3 g/dl PROTEIN(LOINC) TOTAL PROTEIN 7.1 LAB ALBUMIN(LOINC) 3.4 - 4.8 g/dL ALBUMIN 4.0 LAB GLOBULIN(LOINC) 1.5 - 3.8 G/DL GLOBULIN 3.1 LAB A/G RATIO(LOINC) 0.9 - 1.6 A/G RATIO 1.3 LAB TOTAL BILI(LOINC) 0.0 - 1.5 mg/dl TOTAL BILI 0.9 LAB B/C RATIO(LOINC) 0 - 30 ratio B/C High RATIO 32 LAB ALT/SGPT(LOINC) 8 - 35 U/L ALT/SGPT 24 LAB ANION GAP(LOINC) 10 - 20 mmol/L ANION GAP 12 LAB AGE(LOINC) years AGE 72 LAB eGFR(LOINC) 60 - 999 ML/MINUTE eGFR >60 LAB eGFR(AA)(LOINC) 60 - 999 ML/MINUTE eGFR(AA) >60 Result Comment: ACCORDING TO THE NATIONAL KIDNEY DISEASE EDUCATION PROGRAM(NKDE), A NORMAL eGFR IS A VALUE GREATER THAN OR EQUAL TO 60 ML/MIN/1.73 SQ METERS. CHRONIC KIDNEY DISEASE: <60mL/MIN/1.73 SQ METERS KIDNEY FAILURE: <15mL/MIN/1.73 SQ METERS THIS TEST SHOULD ONLY BE USED FOR PATIENTS 18 YEARS OF AGE AND OLDER. Performed By: #### [id number] #### [place] [address] TROPONIN Collected: 01/24/2018 Status: F Source: [facility] MEJIANE 5:00 AM [facility] REPOSITORY TYPE CODE TESTS RESULT OUT OF REFERENCE UNITS RANGE LAB TROPONIN 0.00 - 0.05 ng/ml I(LOINC) High Alert TROPONIN I 0.07 Result Comment: { CALLED TO LINDA @0600/ADL { READ BACK BY LINDA RA@0600 Elevated troponin (above the 99th percentile) usually indicates myocardial ischemia. Results must be interpreted within the clinical setting. 1.Non-ischemic pathology can also cause elevated troponin levels (e.g., acute pulmonary embolism, myocarditis, pericarditis, heart failure, intracranial injury, rhabdomyolisis, sepsis, shock and renal insufficiency). 2.Approximately 1% of healthy adults have elevated troponin levels. 3.Analytical false positive results rarely occur(due to multiple interferences such as heterophile antibodies). Performed By: #### [id number] #### [place] [address] BNP (B-TYPE NATRIURETIC Collected: 01/24/2018 Status: F Source: [facility]ERGUS[facility] PEPTIDE) 5:00 AM [facility] REPOSITORY TYPE CODE TESTS RESULT OUT OF RANGE REFERENCE UNITS LAB BNP(LOINC) 1 - 100 pg/ml High BNP 1172 Performed By: #### [id number] #### [place] [address] Observed: 01/24/2018 Status: F Source: [facility] CULTURE BLOOD 5:00 AM [facility] REPOSITORY CULTURE BLOOD _BLOOD CULTURE_ SET: 1 of 2 24HOUR REPORT NO GROWTH 48HOUR REPORT NO GROWTH 72HOUR REPORT NO GROWTH M I C R O B I O L O G Y R E P O R T FINAL Antimicrobial Susceptibility and Organism Identification Report Specimen Number : [id number] Requested : 01/24/18 Specimen Source : BLOOD Collected : 01/24/18 05:00 [facility] : Emergency Room Received : 01/24/18 05:00 Requesting Physician : PAUL Patient/Specimen Tests and Comments Specimen Comments FINAL REPORT: No Growth at 5 Days Tech : Source : BLOOD ID # : [id number] FINAL Report Date : / / : Collected : 01/24/18 05:00 01/29/18.52.BKO. 01/29/18.851.BKO.COMPLETE Performed By: #### [id number] #### [facility],[address] [place] [address] Observed: 01/24/2018 Status: F Source: [facility] CULTURE BLOOD 5:00 AM [facility] REPOSITORY CULTURE BLOOD _BLOOD CULTURE_ SET: 2 of 2 24HOUR REPORT NO GROWTH 48HOUR REPORT NO GROWTH 72HOUR REPORT NO GROWTH M I C R O B I O L O G Y R E P O R T FINAL Antimicrobial Susceptibility and Organism Identification Report Specimen Number : [id number] Requested : 01/24/18 Specimen Source : BLOOD Collected : 01/24/18 05:00 [facility] : ICU Received : 01/24/18 05:00 Requesting Physician : PAUL Patient/Specimen Tests and Comments Specimen Comments FINAL REPORT: No Growth at 5 Days Tech : Source : BLOOD ID # : [id number] FINAL Report Date : / / : Collected : 01/24/18 05:00 01/29/18.52.BKO. 01/29/1852.BKO.COMPLETE Performed By: #### [id number] #### [facility],[address] [place] [address] DISCHARGE SUMMARY Observed: 12/27/2017 Status: F Source: [facility] 4:40 PM [facility] REPOSITORY [facility] Medical Records Department [address] [place] [address] Discharge Summary 12/27/17 1424 MR#: [id number] Acct: [id number] Name: ATA ORTIZ Aminata Rep #: [id number] : 1945 72 From: Miki Heard MD PCP: Garret Contreras MD Status: DIS IN Y [place] [facility] [id number] Discharge Date and Diagnosis Date of Admission: 12/24/17 Date of Discharge: 12/27/17 - Secondary Discharge Diagnosis Chronic Problems Anxiety (Chronic) Depression (Chronic) Deafness (Chronic) Cardiomyopathy (Chronic) NON ISCHEMIC CARDIOMYOPATHY Hypertension (Chronic) Degenerative joint disease (DJD) of lumbar spine (Chronic) Alcohol abuse (Chronic) PATIENT STATES SHE DRINKS 1- 1 1/2 LITERS OF WINE NITELY-THERE WAS NO EVIDENCE OF ANXIETY OR DT'S DURING HER HOSPITAL STAY Tobacco consumption (Chronic) PATIENT SMOKES 1- 1 1/2 PACKS CIGARETTES PER DAY-REFUSED NICOTINE PATCH AND HAD NO SIDE EFFECTS FROM BEING OFF TOBACCO WHILE IN HOSPITAL Hyperlipidemia (Chronic) Hospital Course and Treatment Operations: None Summary of Care Provided: This is a 71-year-old female with multiple medical problems who presented with right leg pain and found to have acute Right distal tibia fracture, this is fairly well aligned , nonoperative management was been recommended by orthopedics. Right lower extremity is now immobilized in a cast. her pain is under control. Patient is stable for discharge to assisted facility. 1. Acute Right distal tibia fracture, fairly well aligned; nonoperative management recommended at this time, will optimize pain control. Follow-up with orthopedics as an outpatient. DVT prophylaxis with Aspirin. 2. Right sided pleural effusion; we treated with IV Lasix and antibiotics, repeat imaging in 3-4 weeks. 3. COPD without acute exacerbation; she is on bronchodilators. 4. Acute on chronic respiratory failure with hypoxia; continue on supplemental oxygen and wean as tolerated. 5. History of nonischemic cardiomyopathy; stable. 6. Hypertension; this is controlled. 7. Hyperlipidemia-not on a statin. 8. Nicotine dependency; he is recommended to quit smoking. 11. Anxiety/Depression; stable. 12. Remote history of ovarian cancer; status post hysterectomy in 1981, stable. 13. disposition; [facility] post [facility] care and rehabilitation. Exam at the time of discharge; vital signs were stable. she was alert and oriented to time place and person. she did not appear to be any form of distress. S1 and S2 heard no murmur or gallop Lung exam was clear to auscultation with no adventitious sounds. Abdomen was soft nontender with normal bowel sounds. extremity exam did not reveal any edema, palpable pulses bilaterally. Neurologic exam was grossly intact. Ms; right leg cast. Discharge Diet: No Restrictions Home Medications: Medications to take at Discharge Buspirone HCl 15 mg PO BID 12/24/17 Carbamide Peroxide [Ear Wax Removal] 3 drop OT QHS 12/24/17 Cyanocobalamin [Vitamin B12] 1,000 mcg PO DAILY@0800 12/24/17 Escitalopram Oxalate [Lexapro] 10 mg PO DAILY 12/24/17 Fluticasone/Vilanterol [Breo Ellipta 100-25 Mcg INH] 1 each IH DAILY 12/24/17 Furosemide 40 mg PO DAILY 12/24/17 Ipratropium/Albuterol Sulfate [Duoneb] 3 ml INHALATION Q4H PRN PRN 12/24/17 Lactobacillus Acidophilus [Acidophilus] 1 each PO DAILY 12/24/17 Melatonin 1 mg PO QHS 12/24/17 Multivitamin [Animal Shapes] 1 each PO DAILY 12/24/17 Trazodone HCl 25 mg PO QHS 12/24/17 Aspirin 325 mg PO DAILY@0800 30 Days tablet 12/27/17 Cyanocobalamin [Vitamin B12] 1,000 mcg PO DAILY@0800 tablet 12/27/17 Lactobacillus Acidophilus [Acidophilus] 1 tablet PO DAILY tablet 12/27/17 Levofloxacin [Levaquin] 750 mg PO DAILY #5 tab 12/27/17 Lorazepam [Ativan] 0.25 mg PO TID PRN PRN #8 tab 12/27/17 Pantoprazole Sodium [Protonix] 40 mg PO DAILY 30 Days tablet 12/27/17 TraMADol [Ultram] 50 mg PO Q6H PRN PRN #10 tab 12/27/17 Following Prescrptions Were Given to Patient: TraMADol [Ultram] 50 mg PO Q6H PRN PRN #10 tab PRN Reason: Moderate Pain (4-5/10) Aspirin 325 mg PO DAILY@0800 30 Days tablet Levofloxacin [Levaquin] 750 mg PO DAILY #5 tab Lorazepam [Ativan] 0.25 mg PO TID PRN PRN #8 tab PRN Reason: Anxiety Pantoprazole Sodium [Protonix] 40 mg PO DAILY 30 Days tablet Primary Care Physician: Garret Contreras MD [Primary Care Provider] - Within 1 Week Disposition: Home Patient Condition:: Good Meaningful Use Info Meaningful Use Diagnoses (Choose all that apply): None applicable Code Visit Inpatient E AND M: 44151 Disch Hosp 12/27/17 1640 <Electronically signed by Miki Heard MD> Date Miki Heard MD Cosigner Signature (if applicable): Date CC: Garret Contreras MD; Miki Heard MD Signed TRANSFER TO [facility] Observed: 12/27/2017 Status: F Source: [facility] CARE 2:17 PM [facility] REPOSITORY [facility] Medical Records Department [address] [place] [address] Transfer to [facility] Care MR#: [id number] Acct: [id number] Name: ATA ORTIZ Rep #: [id number] : 1945 72 From: Miki Heard MD PCP: Garret Contreras MD Status: ADM IN ATA ORTIZ (Patient) (Health Ins. Claim No.) (Day of Discharge to Facility) Certification of patient admission REQUIRED AT TIME OF ADMISSION. I CERTIFY THAT POST-HOSPITAL ECF SERVICES ARE REQUIRED TO BE GIVEN ON AN IN-PATIENT BASIS BECAUSE OF THE ABOVE NAMED PATIENT'S NEED FOR LONG TERM CARE ON A CONTINUING BASIS FOR THE CONDITION(S) FOR WHICH HE/SHE WAS RECEIVING IN-PATIENT HOSPITAL SERVICES PRIOR TO HIS/HER TRANSFER TO THE F. 12/27/17 1417 <Electronically signed by Miki Heard MD> Date Miki Heard MD - Diet 12/24/17 17:59 Diet: Regular Diet Is pt able to select menu?: Yes - Wound(s) lt mid arm Wound Type: Skin Tear left hip Wound Type: old healed incision - Therapies Weight Bearing: Non weight bearing Physical Therapy: Eval and Treat Occupational Therapy: Eval and Treat - Allergies/Procedures Done in Hospital Allergies/Adverse Reactions: Allergies acetaminophen Allergy (Verified 12/24/17 15:53) Unknown ibuprofen Allergy (Verified 12/24/17 15:53) Swelling Penicillins Allergy (Verified 12/24/17 15:53) Swelling - Type of Care/Length of Stay Estimated LOS: Convalescent Care Less Than 30 days Type of Care Needed: Skilled Rehab Potential: Good Prognosis: Fair - Additional Orders/Day of Discharge H AND P will serve as current which was dated: 12/24/17 Day of Discharge: 12/27/17 - Dietary and Speech Recommendations Dietitian Recommendations/Changes: Recommend continue Regular diet provided poor PO intake currently. Will add Ensure Enlive on medpass routine for additional nutrition if consumed. - Follow Up Care Primary Care Physician: Garret Contreras MD [Primary Care Provider] - Within 1 Week 12/27/17 1417 <Electronically signed by Miki Heard MD> Date Miki Heard MD CC: Garret Contreras MD; Hermes Contreras MD Signed 12 LEAD ELECTROCARDIOGRAM Observed: 12/26/2017 Status: F Source: [facility] 1:33 PM [facility] REPOSITORY [facility] Cardiovascular Services [address] [place] [address] 12 Lead EKG 12/24/17 1625 MR#: [id number] Acct: [id number] Name: ATA ORTIZ Rep #: [id number] : 1945 72 From: Octavio Bullard MD Attending Dr: Miki Heard MD Status: ADM IN Ordering Dr: Tavo Lemsu MD Date: 12/24/17 [place] [facility] Sex: F C Admitted: 12/24/17 Test Reason : FALL Blood Pressure : / mmHG Vent. Rate : 096 BPM Atrial Rate : 096 BPM P-R Int : 160 ms QRS Dur : 152 ms QT Int : 394 ms P-R-T Axes : 056 -16 052 degrees QTc Int : 497 ms Normal sinus rhythm Low voltage QRS (limb leads) Left bundle branch block Abnormal ECG Confirmed by ALEAH LARA, OCTAVIO ([id number]), features editor CLARISSA CONTRERAS ([id number]) on 12/26/2017 1:32:49 PM Referred By: ANGELITO/MARK Confirmed By:OCTAVIO BULLARD MD 12/26/17 1332 Date Octavio Bullard MD CC: Garret Contreras MD; Tavo Lemus MD Signed CHEST WITH CONTRAST Observed: 12/26/2017 Status: F Source: YAKOV 12:01 AM [facility] REPOSITORY [facility] Imaging Services [address] [place] [address] Chest WITH Contrast MR#: [id number] Acct: [id number] Name: ATA ORTIZ Rep #: [id number] : 1945 F 72 From: Antoni Meier MD PCP: Garret Contreras MD Status: ADM IN Study: Chest WITH Contrast Date of Exam: 12/26/17 Exam# [id number] Ordering Dr: Miki Heard MD STUDY: CT CHEST WITH CONTRAST REASON FOR EXAM: Female, 72 years old. Pleural effusions. History of ovarian carcinoma. RADIATION DOSAGE (If Supplied By Facility): CTDIvol = ( 16.56 ) mGy, DLP = ( 685.50 ) mGycm TECHNIQUE: Transaxial imaging was performed following intravenous administration of 100ML ml of Isovue 300 contrast material. Multiplanar coronal and sagittal images were reformatted. Individualized dose optimization techniques were used for this CT. COMPARISON: Comparison is made with prior CT scan of the thorax dated March 2017. FINDINGS: Small to moderate size right pleural effusion with underlying infiltration and/or atelectasis in the right lower lobe. There is no demonstrated pleural abnormality. There is moderate cardiac enlargement. Normal mediastinum. Normal hilar regions. Normal enhanced pulmonary arteries. There is atherosclerotic calcification of the aortic arch . There are multi-level degenerative changes of the thoracic spine. Stable loss of identity T12 vertebrae. There is no demonstrated abnormality of the visualized upper abdomen. CT/Chest WITH Contrast IMPRESSION: Small to moderate right pleural effusion with underlying right lower lobe infiltration and/or atelectasis. Follow-up is recommended. Electronically Signed: Antoni Meier MD at 14:38 EST Tel [phone], Service support , CC: Garret Contreras MD; Miki Heard MD Ekg Monitor: Signed CHEST 1 VIEW Observed: 12/25/2017 Status: F Source: YAKOV (PORTABLE) 12:02 AM [facility] REPOSITORY [facility] Imaging Services [address] [place] [address] Chest 1 View (Portable) MR#: [id number] Acct: [id number] Name: Ata Ortiz Rep #: [id number] : 1945 F 72 From: Jose E Maher PCP: Garret Contreras MD Status: ADM IN Study: Chest 1 View (Portable) Date of Exam: 12/25/17 Exam# [id number] Ordering Dr: Hilary Wheeler MD STUDY: X-RAY CHEST REASON FOR EXAM: Female, 72 years old. Shortness of breath. TECHNIQUE: AP portable chest. COMPARISON: December 24, 2017. FINDINGS: Moderate cardiomegaly with moderate size right pleural effusion unchanged. No pneumothorax. Normal mediastinum and fazal. Normal visualized pulmonary arteries. Normal visualized aortic arch and descending thoracic aorta. Normal visualized thoracic spine. Normal visualized ribs, clavicles, and shoulders. There is no demonstrated abnormality of the visualized soft tissue structures of the upper abdomen. RAD/Chest 1 View (Portable) IMPRESSION: Stable cardiomegaly and right-sided pleural effusion. Electronically Signed: Jose E Maher MD at 6:38 EST , Service support , CC: Hilary Wheeler MD; Garret Contreras MD Ekg Monitor: Signed HISTORY AND PHYSICAL Observed: 12/24/2017 Status: F Source: YAKOV EXAM 9:12 PM [facility] RE[facility] Medical Records Department [address] [place] [address] History and Physical 12/24/17 1723 MR#: [id number] Acct: [id number] Name: Ata Ortiz Rep #: [id number] : 1945 72 From: Margo Bauman CONTROL TECHNICIAN-C PCP: Garret Contreras MD Status: ADM IN Y Location: OR3 [id number] 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 (6) Alcohol abuse Status: Chronic Comment: PATIENT STATES SHE DRINKS 1- 1 1/2 LITERS OF WINE NITELY-THERE WAS NO EVIDENCE OF ANXIETY OR DT'S DURING HER HOSPITAL STAY (7) Tobacco consumption Status: Chronic Comment: PATIENT SMOKES 1- 1 1/2 PACKS CIGARETTES PER DAY-REFUSED NICOTINE PATCH AND HAD NO SIDE EFFECTS FROM BEING OFF TOBACCO WHILE IN HOSPITAL (8) Hyperlipidemia Status: Chronic (9) Anxiety Status: Chronic (10) Depression Status: Chronic (11) Deafness Status: Chronic History of Present Illness Date of Admission: 12/24/17 Chief Complaint: Mechanical fall, right leg injury The patient is a 72 year old F who presents to the emergency room after sustaining mechanical fall at assisted living facility in which she injured right leg. Patient states she was using the restroom when she fell off of the side of the commode. She states she was unable to help herself up due to being in an awkward position. She denies hitting her head at the time of the fall. She denies dizziness or other symptoms prior to fall. She states she has had falls in the past which resulted in injuries as well. Patient denies pain currently but states she has increased pain with movement of right lower extremity. She denies other associated complaints. 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 Right lower extremity has splint in place and is wrapped with Nestor bandage. She is able to move her toes on the right lower extremity and sensation is intact. Her other past medical history includes nonischemic cardiomyopathy, hypertension, sinus tachycardia, degenerative joint disease of the lumbar spine, history of tobacco use, hyperlipidemia, history of pelvic fracture following mechanical fall, alcohol abuse. Patient drinks 1-2 L of wine per day. Past Medical History Past Medical History (Chronic Problems): Chronic Problems Anxiety (Chronic) Depression (Chronic) Deafness (Chronic) Cardiomyopathy (Chronic) NON ISCHEMIC CARDIOMYOPATHY Hypertension (Chronic) Degenerative joint disease (DJD) of lumbar spine (Chronic) Alcohol abuse (Chronic) PATIENT STATES SHE DRINKS 1- 1 1/2 LITERS OF WINE NITELY-THERE WAS NO EVIDENCE OF ANXIETY OR DT'S DURING HER HOSPITAL STAY Tobacco consumption (Chronic) PATIENT SMOKES 1- 1 1/2 PACKS CIGARETTES PER DAY-REFUSED NICOTINE PATCH AND HAD NO SIDE EFFECTS FROM BEING OFF TOBACCO WHILE IN HOSPITAL Hyperlipidemia (Chronic) Allergies acetaminophen Allergy (Verified 12/24/17 15:53) Unknown ibuprofen Allergy (Verified 12/24/17 15:53) Swelling Penicillins Allergy (Verified 12/24/17 15:53) Swelling Home Medications: Ambulatory Orders Medication Instructions Recorded Albuterol Aerosols [Ventolin 2.5 mg INHALATION Q6H PRN PRN 12/24/17 Surgical History: hysterectomy, - - oophorectomy, ankle surgery, foot surgery, bilateral knee surgery, wrist surgery Psychiatric History: No pertinent psych hx, 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 [employer]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 History: No pertinent W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 history, ovarian cancer Lives: Residential Smoking Status: Former smoker Alcohol: Heavy Drugs: None - *Family History Maternal History Items: Unknown - Adopted Paternal History Items: Unknown - Adopted Review of Systems Constitutional: Denies: Chills, Fever, Weight Change HEENT: Denies: Head Aches, Sinus Congestion, Sinus Drainage Cardiovascular: Denies: Chest Pain, Palpitations Respiratory: Reports: Cough - Chronic, nonproductive, Shortness of breath upon exertion - Chronic Gastrointestinal: Denies: Abdominal Pain, Nausea, Vomiting Genitourinary: Denies: Dysuria Musculoskeletal: Reports: - - Right lower extremity pain with movement Neurological: Reports: Balance problems, - - Chronic numbness, tingling. Denies: Blurred vision, Slurred speech, Confusion, Focal weakness Psychiatric: Denies: Anxiety, Depression, Homicidal Ideations, Suicidal Ideations Hematologic/ Lymphatic: Denies: Easy Bruising, Easy Bleeding VTE Information - Inpt Only VTE Present on Admission: No VTE Mechan Device Prophylaxis: None VTE Pharm Prophylaxis ordered?: Yes - Physical Exam General: Alert, Oriented x3, Cooperative, No apparent distress Oral: Dry Mucosa Neck: Supple, No JVD, Negative Carotid Bruits Lungs: Diminished, Rhonchi Cardiovascular: Regular Rhythm, Normal S1, Normal S2, No murmurs, Tachycardic Abdomen: Bowel Sounds Present, Soft, Non Tender, Non-Distended, Obese Extremities: No clubbing, No cyanosis, No edema, Capillary Refill Less than 3 Seconds Skin: No rashes, No breakdown Musculoskeletal: Tenderness - RLE Lymphatic: No Cervical, Supraclavicular, or Inguinal Adenopathy Neurological: Cranial nerves II-XII grossly intact, Neuro grossly intact Psych/Mental Status: Normal Affect, Appropriate Vital Signs Temp Pulse Resp BP Pulse Ox 97.5 F L 104 H 24 H 130/88 H 90 12/24/17 14:20 12/24/17 17:05 12/24/17 14:20 12/24/17 17:05 12/24/17 17:05 Oxygen Flow Rate 3 Oxygen Delivery Method Nasal Cannula Weight: 106.4 kg Body Mass Index (BMI) 42.9 Laboratory Tests Past 24 Hrs Assessment/Plan 1. Acute distal tibia spiral fracture secondary to mechanical fall prior to admission with associated physical debility-Dr. Hermes Contreras, orthopedic consulted by ER. X-ray of right ankle shows evidence of a comminuted spiral fracture of the distal tibia with a diffuse soft tissue swelling. Vascular calcification. Fusion of the talocalcaneal joint as well as the tarsal joints. Ortho consulted pending. PRN pain regimen. PT/OT when approved by ortho. Fall precautions. Patient has had previous falls in assisted living in the past resulting in injury including pelvic fracture. It is possible she may need discharge to assisted facility at discharge. 2. Right sided pleural effusion-low suspicion for pneumonia- patient has chronic nonproductive cough. Denies fever, chills. Chest x-ray shows new right- sided pleural effusion, cannot exclude associated right basilar atelectasis and/or pneumonia. No leukocytosis. Patient is afebrile. Albuterol and DuoNeb aerosols. IS/PEP. Repeat CXR in a.m. 3. Chronic COPD-patient has extensive smoking history, previously smoking 3 packs per day. Denies recent tobacco use. She is on multiple inhalers at assisted facility including albuterol, Brio elliptical, DuoNeb. Patient has not had any formal pulmonary function testing. Albuterol and DuoNeb aerosols. Continue supplemental oxygen to maintain at O2 at or above 90%. IS. 4. Acute on chronic hypoxia-suspected secondary to #1/#2. Patient states she wears oxygen intermittently at assisted living facility. Continue supplemental oxygen to maintain O2 at or above 90%. 5. History of nonischemic cardiomyopathy-continue Lasix regimen. Echocardiogram March 2017 showed an estimated ejection fraction of 30%, moderate mitral valve insufficiency. 6. Hypertension-stable, continue home Lasix regimen. 7. Hyperlipidemia-not on a statin. 8. 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 9. Alcohol abuse-encouraged alcohol cessation. Continue B12, folic acid, multivitamin supplementation. [facility] protocol. 10. History of tobacco use-denies current use. Encouraged continued cessation. 11. Anxiety/Depression-continue home medication regimen including buspirone, Lexapro, Ativan. 12. History of ovarian cancer-status post hysterectomy in 1981. 13. Deafness-patient communicates fairly well. Provide assistive devices for communication as necessary. DVT prophylaxis-Lovenox subcu. This patient was seen by NABOR Elizabeth under the supervision of Dr. Wheeler. <Hilary Wheeler - Last Filed: 12/24/17 21:12> History of Present Illness The patient is a 72 year old F [] Past Medical History Allergies acetaminophen Allergy (Verified 12/24/17 15:53) Unknown ibuprofen Allergy (Verified 12/24/17 15:53) Swelling Penicillins Allergy (Verified 12/24/17 15:53) Swelling - Physical Exam Vital Signs Temp Pulse Resp BP Pulse Ox 98.4 F 102 H 18 134/85 H 94 12/24/17 18:02 12/24/17 18:02 12/24/17 18:02 12/24/17 18:02 12/24/17 18:02 Oxygen Flow Rate 3 Oxygen Delivery Method Nasal Cannula Weight: 102.512 kg Body Mass Index (BMI) 41.3 Laboratory Tests Past 24 Hrs Vit D 1,25-Dihydroxy Pending Ethyl Alcohol < 3.0 Assessment/Plan Patient was seen and examined independently of nurse practitioner, Margo Bauman. History and physical exam as well as assessment and plan per her notes. Patient denies any complains of pain at the time of being seen. Fell in her bathroom, called for help and found to have a distal tibial/fibula fracture. Vitals are stable, labs are unremarkable. A/P 1. Right comminuted spiral fracture of the distal tibia, orthopedics consulted, patient is moderate risk for planned procedure, because of her pulmonary status with underlying history of COPD where she is supposed to wear oxygen sometimes, with pleural effusion seen on x-ray. We need to repeat the x-ray in the morning, continue on incentive spirometer. Doubt pneumonia because no fever or leukocytosis. 2. COPD, not in acute exacerbation 3. Acute respiratory insufficiency secondary to atelectasis/pleural effusion, will need to follow-up and wean oxygen for SpO2 more than 92% 4. Chronic CHF, systolic, not in acute exacerbation, continue on home Lasix 5. Hypertension, controlled, on any medications, will continue to monitor on telemetry 6. Guillain-Mccabe syndrome, with associated neuropathy and use of walker, this likely contributed to her falls 7. Alcohol abuse, polypharmacy -she is on multiple sedatives such as Ativan, trazodone, melatonin that likely contributed to her patient's fall today, will DC as needed Ativan today, and consider decreasing trazodone if patient has no complaints with sleep. Code Visit Inpatient E AND M: 34860 Init Hosp L3 12/24/171818 <Electronically signed by Margo Bauman CONTROL TECHNICIAN-C> Date Margo Bauman CONTROL TECHNICIAN-C 12/24/172111<Electronically signed by Hilary Wheeler MD> Cosigner Signature: Date (if applicable) Hilary Wheeler MD CC: CONTROL TECHNICIAN-C Margo Bauman; Hilary Wheeler MD; Garret Contreras MD Signed CONSULTATION Observed: 12/24/2017 Status: F Source: YAKOV 9:06 PM [facility] Medical Records Department [address] [place] [address] Consultation 12/24/172058 MR#: [id number] Acct: [id number] Name: Ata Ortiz Rep #: [id number] : 1945 72 From: Hermes Contreras MD PCP: Garret Contreras MD Status: ADM IN Y Location: MS3 [id number] Reason for Consult Date of Consultation: 12/24/17 History of Present Illness: The patient is a 72 year old female with multiple medical problems. She stumbled today fracturing her right lower extremity. She denied chest pain or shortness of breath at the time. No head injury. She has fallen before. She has had previous pelvic fractures treated nonoperatively. She is a minimal ambulator with assistance. She does use a wheelchair some. Her pain is currently well controlled. She is comfortable in her splint. [] Past Medical History Past Medical History (Chronic Problems): Chronic Problems Anxiety (Chronic) Depression (Chronic) Deafness (Chronic) Cardiomyopathy (Chronic) NON ISCHEMIC CARDIOMYOPATHY Hypertension (Chronic) Degenerative joint disease (DJD) of lumbar spine (Chronic) Alcohol abuse (Chronic) PATIENT STATES SHE DRINKS 1- 1 1/2 LITERS OF WINE NITELY-THERE WAS NO EVIDENCE OF ANXIETY OR DT'S DURING HER HOSPITAL STAY Tobacco consumption (Chronic) PATIENT SMOKES 1- 1 1/2 PACKS CIGARETTES PER DAY-REFUSED NICOTINE PATCH AND HAD NO SIDE EFFECTS FROM BEING OFF TOBACCO WHILE IN HOSPITAL Hyperlipidemia (Chronic) Allergies acetaminophen Allergy (Verified 12/24/17 15:53) Unknown ibuprofen Allergy (Verified 12/24/17 15:53) Swelling Penicillins Allergy (Verified 12/24/17 15:53) Swelling Home Medications: Ambulatory Orders Medication Instructions Recorded Albuterol Aerosols [Ventolin 2.5 mg INHALATION Q6H PRN PRN 12/24/17 Surgical History: hysterectomy, - - oophorectomy, ankle surgery, foot surgery, bilateral knee surgery, wrist surgery Psychiatric History: No pertinent psych hx, Anxiety 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 History: No pertinent 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 history, ovarian cancer Lives: Residential Smoking Status: Former smoker Alcohol: Heavy Drugs: None - *Family History Maternal History Items: Unknown - Adopted Paternal History Items: Unknown - Adopted Objective: Right lower extremity is in a posterior short leg splint, sugar tong splint as well. She can gently wiggle the toes. She has abnormal light touch sensation of both lower extremities from her underlying Guyon Mccabe syndrome. She had no pain at the knees or hips. Normal capillary refill at the toes. No severe pain with gentle passive toe motion. Clinically right lower extremity well aligned. X-rays AP lateral and oblique of right ankle shows a spiral distal tibia fracture extra-articular in very reasonable alignment on all views. Some osteopenia noted. Minimal comminution. Laboratory work and vital signs reviewed Note from hospitalist reviewed - Physical Exam Vital Signs Temp Pulse Resp BP Pulse Ox 98.4 F 102 H 18 134/85 H 94 12/24/17 18:02 12/24/17 18:02 12/24/17 18:02 12/24/17 18:02 12/24/17 18:02 Oxygen Flow Rate 3 Oxygen Delivery Method Nasal Cannula Weight: 102.512 kg Body Mass Index (BMI) 41.3 Laboratory Tests Past 24 Hrs Vit D 1,25-Dihydroxy Pending Ethyl Alcohol < 3.0 Assessment/Plan Right distal tibia fracture fairly well aligned. Operative and nonoperative interventions discussed with her. She understands surgery could consist of a tibial nail or plate and screws. She understood nonoperative care could be a cast splint or brace. She understands complications that could occur with and without surgery. She understands this fracture can take 6 or 12 weeks if not longer to heal with or without surgery. No guarantees were stated or implied with either treatment option. She does understand based on her comorbidities she is at a higher risk for surgery. She would like to avoid surgery if possible. Risk of nonunion malunion, pain stiffness weakness, possible pressure sores from her cast or brace. Possibility of DVT or PE with or without surgery. I will recommend ice and elevation and nonweightbearing. Command follow up in office in 7-10 days for repeat x-rays. We may consider switching her to a cast or brace at that point. SHe understands and agrees. Of her questions answered Multiple medical comorbidities, evaluation and treatment per hospitalist service 12/24/17 1471 <Electronically signed by Hermes Contreras MD> Date Hermes Contreras MD Cosigner Signature (if applicable): Date CC: Garret Contreras MD; Hermes Contreras MD Signed ALCOHOL, BLOOD Collected: 12/24/2017 Status: F Source: YAKOV (MEDICAL)-SERUM 6:58 PM [facility] TYPE CODE TESTS RESULT OUT OF RANGE REFERENCE UNITS LAB L501.9100 mg/dL Normal SERUM < 3.0 ETOH Result Comment: The serum:whole blood ethanol ratio is approximately 1.14 and varies slightly with hematocrit. Medical Alcohol reference interval and critical value in non-tolerant individuals; 50 - 100 Impairment 100 Intoxication 100 - 250 Severe Poisoning 250 - 400 Deep/possible fatal coma Performed By: #### L501.9100 #### [facility] [place], [address] VITAMIN D 1,25-DIHYDROXY Collected: 12/24/2017 Status: F Source: YAKOV 6:58 PM [facility] TYPE CODE TESTS RESULT OUT OF RANGE REFERENCE UNITS LAB L3300.0960 19.9-79.3 pg/mL Normal VITD 1,25 46.9 17730 Result Comment: Performed at: - [facility] [id number] Bar Back: Angelo Ramirez MD, Phone: [phone] Performed By: #### L3300.0960 #### [facility] (refer to report for specific site) refer to report for address and phone number CBC W/DIFF, AUTOMATED Collected: 12/24/2017 Status: F Source: YAKOV 4:20 PM [facility] TYPE CODE TESTS RESULT OUT OF RANGE REFERENCE UNITS LAB L100.1000 4.4-11.0 K/mm3 Normal WBC 7.4 LAB L100.1200 4.2-5.4 M/mm3 Normal RBC 5.03 LAB L100.1300 12.0-15.0 g/dl Normal HGB 14.5 LAB L100.1400 37-47 % High HCT 47.1 LAB L100.1500 81-99 fL Normal MCV 93.6 LAB L100.1600 27.0-32.0 pg Normal MCH 28.8 LAB L100.1700 32-36 g/gl Low MCHC 30.8 LAB L100.1810 11.6-14.6 % High RDW CV 17.7 LAB L100.1820 35.1-43.9 fl High RDW SD 58.3 LAB L100.1900 150-450 K/mm3 Normal PLT 150 LAB L100.2000 6.2-12.0 fl Normal MPV 11.2 LAB L100.2100 47-70 % High NEUT% 83.2 LAB L100.2200 19-41 % Low LY% 8.0 LAB L100.2300 0-10 % Normal MONO% 6.9 LAB L100.2400 0-5 % Normal EO% 0.5 LAB L100.2500 0-1 % High BASO% 1.1 LAB L100.2550 0.0-0.9 % Normal IM GRAN % 0.300 Result Comment: IG% - Immature Granulocytes (promyelocytes, myelocytes and metamyelocytes) > 1% indicates that a LEFT SHIFT is Present. LAB L100.2620 2.0-7.7 X10 3/uL Normal Absolute Neut 6.1 LAB L100.2720 0.83-4.51 X10 3/ul Low Absolute Lymph 0.59 LAB L100.4500 SMEAR Normal COMMENT Result Comment: LYMPHOPENIA NOTED Performed By: #### L100.0100 #### [facility] [address] [place], [place], [address] PROTHROMBIN TIME W/INR Collected: 12/24/2017 Status: F Source: YAKOV 4:20 PM [facility] TYPE CODE TESTS RESULT OUT OF RANGE REFERENCE UNITS LAB L300.4150 11.7-14.9 SECONDS Normal PROTIME 14.5 LAB L300.4200 Normal INR 1.2 Performed By: #### L300.3900 #### [facility] [address] [place], [address] BASIC METABOLIC Collected: 12/24/2017 Status: F Source: YAKOV PROFILE (BMP) 4:20 PM [facility] TYPE CODE TESTS RESULT OUT OF RANGE REFERENCE UNITS LAB L501.0100 74-106 mg/dL High GLU 120 Result Comment: Fasting Glucose result from 100 to 125 mg/dL suggests IMPAIRED HOMEOSTASIS per A.D.A. criteria. Please note revised GLUCOSE reference range effective 2017. LAB L501.1000 7-18 mg/dL Normal BUN 17 LAB L501.1100 0.55-1.02 mg/dL Normal CREAT,SERUM 0.90 Result Comment: The validity of the calculated GFR AND GFRAA in patients over 70 years has not been determined. Clinical correlation is essential. LAB L501.1110 >60 mL/min Normal EST GFR 65 Result Comment: Non- GFR Calc LAB L501.1115 >60 mL/min Normal EST GFR - AA 79 Result Comment: GFR Calc LAB L501.1255 ml/min Normal Estimated CRCL 44.03 LAB L501.1300 10-20 RATIO Normal BUN/CRE 18.8 LAB L501.2200 8.5-10 mg/dL Normal .1 CA 9.4 LAB L501.5300 136-14 mmol/L Normal 5 NA 142 LAB L501.5600 3.5-5. mmol/L Normal 1 K 4.2 LAB L501.5900 98-107 mmol/L Normal CL 99 LAB L501.6100 21.0-3 mmol/L High 2.0 CO2 36.0 LAB L501.6200 5-15 Normal GAP 7 Performed By: #### L500.2500 #### [facility] [address] [facility] [place], [address] EMERGENCY DEPARTMENT Observed: 12/24/2017 Status: F Source: SIDNEY SUMMARY 4:05 PM [facility] Medical Records Department [address] [place] [address] Emergency Department Summary 12/24/17 1601 MR#: [id number] Acct: [id number] Name: Ata Ortiz Rep #: [id number] : 1945 72 From: Tavo Lemus MD PCP: Garret Contreras MD Status: REG ER - ER Visit Summary Date of Service: 12/24/17 Chief Complaint: Fall History of Present Illness: The patient is a 72 F who presents after a fall. She has a history of Guillanne-Mccabe syndrome and normally ambulates with a walker. She is at an assisted living. She was attempting to sit down on the commode when she slipped and fell injuring her right ankle. She denies any other injuries. She denies back pain chest pain head injury loss of consciousness headache or vomiting. She did sustain some abrasions to her forearms but denies any pain. Physical Examination: Febrile heart rate 106 respiratory rate 24 Heart regular rhythm tachycardia Tachypnea without rales or wheezing Abdomen soft Patient has right ankle and distal lower leg tenderness she has a palpable dorsalis pedis pulse she has chronic venous stasis changes limited painful range of motion ankle no foot tenderness no pain at the proximal fibula or knee no pain at the hip GCS of 15 with no focal or lateralizing neurological deficits Test Results: Ankle x-ray shows a comminuted spiral distal tibial fracture Emergency Department Course and Treatment: Given patient's poor mobility at baseline with a distal tibial fracture I do not believe she will be able to care for herself at her current level of care. I spoke to Dr. Hermes Contreras's nurse for orthopedic consult. We will admit patient to hospitalist serving given multiple comorbidities. At the time this dictation further medical clearance including laboratory studies EKG and chest x-ray have been ordered currently pending. Treatment Plan: [] Disposition: Admit Impression: Right tibia fracture This note was generated with [employer] dictation software. It may contain incorrect words, spelling, and punctuation that were not noted in review of the chart prior to signing ED Disposition - Plan for ED Patient: Chief Complaint: Fall Referrals: Garret Contreras MD [Primary Care Provider] - What to do if you have Problems For any increased pain, shortness of breath, bleeding, nausea or vomiting, chest pain, or any unexpected problems, contact your Primary Care Provider. Call [facility] ([phone]) or report to the closest Emergency Room. Call 911 if necessary. 12/24/17 6629 <Electronically signed by Tavo Lemus MD> Date Tavo Lemus MD Cosigner Signature (If Indicated): Date CC: Garret Contreras MD CHEST 1 VIEW Observed: 12/24/2017 Status: F Source: YAKOV (PORTABLE) 4:01 PM [facility] Imaging Services [address] [place] [address] Chest 1 View (Portable) MR#: [id number] Acct: [id number] Name: Ata Ortiz Rep #: [id number] : 1945 F 72 From: Shyann Sanchez MD PCP: Garret Contreras MD Status: REG ER Study: Chest 1 View (Portable) Date of Exam: 12/24/17 Exam# [id number] Ordering Dr: Tavo Lemus MD STUDY: X-RAY CHEST REASON FOR EXAM: Female, 72 years old. Cough. TECHNIQUE: AP portable COMPARISON: March 14, 2017 FINDINGS: There is a new moderate-sized right pleural effusion. There is cardiomegaly present. Normal mediastinum and fazal. Normal visualized pulmonary arteries. There is atherosclerotic calcification of the aortic arch with tortuosity. Normal visualized thoracic spine. Normal visualized ribs, clavicles, and shoulders. There is no demonstrated abnormality of the visualized soft tissue structures of the upper abdomen. RAD/Chest 1 View (Portable) IMPRESSION: New right-sided pleural effusion, cannot exclude associated right basilar atelectasis and/or pneumonia. Electronically Signed: Shyann Sanchez MD at 17:01 EST Tel , Service support , CC: Garret Contreras MD; Tavo Lemus MD Ekg Monitor: Signed ANKLE MIN 3 VIEWS Observed: 12/24/2017 Status: F Source: YAKOV 2:53 PM [facility] Imaging Services [address] [place] [address] Ankle min 3 Views MR#: [id number] Acct: [id number] Name: Ata Ortiz Rep #: [id number] : 1945 F 72 From: Antoni Meier MD PCP: Garret Contreras MD Status: REG ER Study: Ankle min 3 Views Date of Exam: 12/24/17 Exam# [id number] Ordering Dr: Tavo Lemus MD STUDY: X-RAY - RIGHT ANKLE REASON FOR EXAM: Female, 72 years old. Pain following a fall. TECHNIQUE: 3 view(s) of the ankle. COMPARISON: None. FINDINGS: There is a comminuted spiral fracture of the distal tibial shaft. There is good alignment. Normal medial and lateral malleoli. Normal tibiotalar articulation and ankle mortise. Plantar spur. Fusion of the talocalcaneal joint. There is osteopenia of the tarsal bones with a finding suggestive of a partial fusion. Diffuse soft tissue swelling. Vascular calcification. RAD/Ankle min 3 Views IMPRESSION: There is evidence of a comminuted spiral fracture of the distal tibia with a diffuse soft tissue swelling. Vascular calcification. There is fusion of the talocalcaneal joint as well as the tarsal joints. Electronically Signed: Antoni Meier MD at 15:29 EST Tel [phone], Service support , CC: Garret Contreras MD; Tavo Lemus MD Ekg Monitor: Signed BNP,B-TYPE NATRIURETIC Collected: 12/19/2017 Status: F Source: YAKOV PEPTIDE 6:35 AM [facility] Order Comment: ROOM 211 TYPE CODE TESTS RESULT OUT OF RANGE REFERENCE UNITS LAB L503.6620 0-100 pg/mL High B-TYPE 915.9 ARNAUD PEP Performed By: #### L503.6620 #### [facility] [address] [place], [address] CBC-COMPLETE BLOOD CNT Collected: 12/17/2017 Status: F Source: YAKOV NO DIFF 7:09 AM [facility] Order Comment: ROOM 211 TYPE CODE TESTS RESULT OUT OF RANGE REFERENCE UNITS LAB L100.1000 4.4-11.0 K/mm3 Low WBC 3.5 LAB L100.1200 4.2-5.4 M/mm3 Normal RBC 4.54 LAB L100.1300 12.0-15.0 g/dl Normal HGB 13.3 LAB L100.1400 37-47 % Normal HCT 42.5 LAB L100.1500 81-99 fL Normal MCV 93.6 LAB L100.1600 27.0-32.0 pg Normal MCH 29.3 LAB L100.1700 32-36 g/gl Low MCHC 31.3 LAB L100.1810 11.6-14.6 % High RDW CV 17.3 LAB L100.1820 35.1-43.9 fl High RDW SD 56.9 LAB L100.1900 150-450 K/mm3 Low PLT 119 LAB L100.2000 6.2-12.0 fl Normal MPV 11.9 Performed By: #### L100.0500 #### [facility] [address] [place], [address] COMPREHENSIVE METABOLIC Collected: 12/17/2017 Status: F Source: YAKOV PROFIL 7:09 AM [facility] Order Comment: ROOM 211 TYPE CODE TESTS RESULT OUT OF RANGE REFERENCE UNITS LAB L501.0100 74-106 mg/dL Normal GLU 92 Result Comment: Please note revised GLUCOSE reference range effective 2017. LAB L501.1000 7-18 mg/dL Normal BUN 13 LAB L501.1100 0.55-1.02 mg/dL Normal CREAT,SERUM 0.81 Result Comment: The validity of the calculated GFR AND GFRAA in patients over 70 years has not been determined. Clinical correlation is essential. LAB L501.1110 >60 mL/min Normal EST GFR 74 Result Comment: Non- GFR Calc LAB L501.1115 >60 mL/min Normal EST GFR - AA 89 Result Comment: GFR Calc LAB L501.1300 10-20 RATIO Normal BUN/CRE 16.1 LAB L501.1500 6.4-8.2 g/dL T Normal PROT 6.9 LAB L501.1800 3.2-5.0 g/dL Normal ALB 3.4 LAB L501.1950 2.2-4.2 g/dL Normal GLOB 3.5 LAB L501.2000 0.9-2.4 RATIO Normal A/G 1.0 LAB L501.2200 8.5-10.1 mg/dL CA Normal 9.0 LAB L501.4100 15-37 U/L Normal AST 18 LAB L501.4305 45-117 U/L Normal ALK P 84 LAB L501.4405 13-56 U/L Normal ALT 19 Result Comment: Please note revised ALT reference range effective 2017. LAB L501.4600 0.20-1.00 mg/dL High T BILI 1.10 LAB L501.5300 136-145 mmol/L Normal NA 142 LAB L501.5600 3.5-5.1 mmol/L Normal K 3.9 LAB L501.5900 98-107 mmol/L Normal CL 101 LAB L501.6100 21.0-32.0 mmol/L High CO2 33.0 LAB L501.6200 5-15 Normal GAP 8 Performed By: #### L500.4050, L500.4100 #### [facility] [address] [facility] [place], [place], [address] LIPID PROFILE Collected: 12/17/2017 Status: F Source: YAKOV 7:09 AM [facility] Order Comment: ROOM 211 TYPE CODE TESTS RESULT OUT OF RANGE REFERENCE UNITS LAB L501.4900 200 mg/dL Normal CHOL 167 Result Comment: <200 mg/dL Desirable 200-240 mg/dL Borderline >240 mg/dL High Risk LAB L501.5000 mg/dL Normal TRIG 102 Result Comment: The drugs N-Acetylcysteine and Metamizole may falsely depress this assay. Serum Triglycerides Reference Interval Normal <150 mg/dL Borderline high 150 - 199 mg/dL High 200 - 499 mg/dL Very High > or = 500 mg/dL LAB L501.6400 mg/dL Normal HDL 54 Result Comment: The drugs N-Acetylcysteine and Metamizole may falsely depress this assay. Reference Range HDL <40 mg/dL Low HDL Cholesterol HDL >or= 60 mg/dL High HDL Cholesterol LAB L501.6500 0-130 mg/dL Normal LDL 93 LAB L501.6600 5-40 mg/dL Normal VLDL 20 Performed By: #### L500.4050, L500.4100 #### [facility] [address] [place], [address] ALLERGIES ALLERGIES DATE TYPE / CODE NAME / CODE REACTION SEVERITY SOURCE 08/30/2018 Drug Penicillins/[id number] Swelling Unknown [place] Allergy/416 0476(RXNORM) [facility] 032150([facility] ED CT) Repository 08/30/2018 Drug acetaminophen/F006 Unknown Unknown [place] Allergy/416 181413(RXNORM) [facility] 077681([facility] ED CT) Repository 08/30/2018 Drug ibuprofen/[id number] Swelling Unknown [place] Allergy/416 77(RXNORM) [facility] 914664([facility] ED CT) Repository Drug PENICILLINS Moderate Olaf Pomerene Allergy/416 (CLASS)/03054059(R ([place] [address]([facility] XNORM) [facility]) [facility] ED CT) (Qualifier Repository Value) Drug IBUPROFEN/[id number] Moderate Olaf Pomerene Allergy/416 (RXNORM) ([facility] 470083(SN Modifier) [facility] ED CT) (Qualifier Repository Value) Drug ACETAMINOPHEN/0000 Moderate Olaf Pomerene Allergy/416 0509(RXNORM) ([facility] 566235([facility]) [facility] ED CT) (Qualifier Repository Value) ENCOUNTERS ENCOUNTERS ADMIT/DISCHARGE ACCOUNT ADMITTING ENCOUNTER LOCATION SOURCE NUMBER CLASS 11/12/2018 [id number] Ambulatory [place] Yakov 6 [facility] ing:OLS.AVEB Repository 11/07/2018 [id number] Ambulatory Yakov Yakov 1 [facility] ing:OLS.AVEB Repository 10/28/2018 [id number] Ambulatory [place] 5 [facility] ing:OLS.AVEB Repository 10/22/2018/ [id number] Emergency [facility] [place] [facility] Repository 09/15/2018 [id number] [facility]akov [facility] 9 [facility]WC Repository 08/30/2018/ [id number] Emergency Yakov Yakov 8 3 [facility] ing:ED Repository 08/28/2018 [id number] Ambulatory [place] Yakov 4 [facility] ing:OLS.AVEAS Repository 08/22/2018/ [id number] Emergency [place] Yakov 8 7 [facility] ing:ED Repository 08/16/2018 [id number] Ambulatory Yakov Yakov 9 [facility] ing:OLS.AVEB Repository 08/05/2018/ [id number] Ambulatory [place] Yakov 8 2 [facility] ing:WC Repository 07/30/2018 [id number] Ambulatory BMSBuilding:B Yakov 1 [facility] Repository 07/29/2018/ [id number] Ambulatory [place] 8 2 [facility] ing:WC Repository 07/26/2018 [id number] Ambulatory [place] 5 [facility] ing:CVS Repository 07/25/2018 [id number] Ambulatory [place] 3 [facility] ing:CVS Repository 07/24/2018 [id number] Ambulatory [place] 0 [facility] ing:MFPLAB Repository 07/17/2018 [id number] Ambulatory [facility]akov [facility] 7 [facility] ing:MTRAD Repository 05/09/2018 [id number] Ambulatory BMSBuilding:W [place] 8 [facility] Hospital Repository 05/09/2018 [id number] Ambulatory Yakov [place] 8 [facility] ing:CVS Repository 04/25/2018 [id number] Ambulatory Yakov Yakov 6 [facility] ing:MTRAD Repository 03/27/2018 [id number] Ambulatory [place] 6 [facility] ing:CT Repository 03/21/2018 [id number] Ambulatory BMSBuilding:W Yakov 4 [facility] Hospital Repository 03/20/2018 [id number] Ambulatory [place] 8 [facility] ing:PSN Repository 02/27/2018 [id number] Ambulatory Yakov [place] 2 [facility] ing:MFPLAB Repository 02/04/2018/ [id number] LATOUF, Ambulatory Olaf Ferguson 8 [place] [facility] Repository 01/24/2018/ [id number] CECIL SHIN Inpatient BuildinR Olaf Melendez MD Encounter oom: [address] Repository 12/24/2017 [id number] [place], [place] Ambulatory BMSBuilding:B [place] 2 [facility] Repository 12/24/2017 [id number] [place] Ambulatory BMSBuilding:B [place] 8 [facility] Repository 12/24/2017 [id number] [place] Ambulatory BMSBuilding:B Yakov 1 [facility] Repository 12/24/2017 [id number] [place] Ambulatory BMSBuilding:B Yakov 0 [facility] Repository 12/24/2017/ [id number] [place] Inpatient Yakov [place] 8 4 Encounter [facility] ing:BK3Wesr: Repository MB517Yfs: 1 12/19/2017 [id number] Ambulatory [place] 4 [facility] ing:FABRICIO.RAFFI Repository N 12/17/2017 [id number] Ambulatory [place] 3 [facility] N PAYERS PAYERS ENCOUNTER GUARANTOR PAYER SUBSCRIBER SOURCE 11/12/2018 ATA E Primary ATA E Y[place] [address] Insurance:DARLIN YODERDOB: [facility] [id number] E [facility] [id number] [facility] Number: Repository [place] REED [id number]: 330) Date:6469-48-35YZ [phone] (SS) [address] [address]LH: 11/12/2018 Secondary NOT GIVENUNK Y[place] Insurance:SELF PAY [facility] Number: Effective Repository Date:2018-11-12 11/07/2018 ATA E Primary ATA E Yakov [address] Insurance:DARLIN YODERDOB: Community [id number] E [facility] [id number] South Haven Hospital Number: Repository [place] [id number] [address]Hmw: [phone]) Date:2521-15-65HD [phone] (HP) [place] [address]UH: 11/07/2018 Secondary NOT GIVENUNK [place] Insurance:SELF PAY [facility] Number: Effective Repository Date:2018-11-07 10/28/2018 ATA E Primary ATA E [place] [address] Insurance:DARLIN YODERDOB: Community [id number] E [facility] HEALTH PLAN [id number] South Haven Hospital Number: Repository [place] [id number] [address]Syp: ([phone]) Date:4006-17-59DZ [phone] (HP) [address] [address]MC: 10/28/2018 Secondary NOT GIVENUNK Yakov Insurance:SELF PAY [facility] Number: Effective Repository Date:2018-10-28 10/22/2018 ATA E Primary ATA E Yakov [address] Insurance:DARLIN YODERDOB: Community [id number] E [facility] HEALTH PLAN [id number] South Haven Hospital Number: Repository [place] [id number] [address]Nsr: ([phone]) Date:3972-91-76CQ [phone] (HP) [place] [address]GP: 10/22/2018 Secondary NOT GIVENUNK [place] Insurance:SELF PAY [facility] Number: Effective Repository Date:2018-10-22 09/15/2018 ATA E YODERC/O Primary ATA E Yakov [place] [id number] CR Insurance:DARLIN YODERDOB: [address] [id number] [place] [id number]: [phone]) [facility] Number: Repository [phone] () [id number] Date:4473-75-89DA [address], [place] [address]PS: 09/15/2018 Secondary NOT GIVENUNK [place] Insurance:SELF PAY [facility] Number: Effective Repository Date:2018-09-05 08/30/2018 ATA E YODERC/O Primary ATA E Yakov [place] [id number] CR Insurance:DARLIN YODERDOB: [address] [id number] [place] [id number]: [phone]) [facility] Number: Repository [phone] () [id number] Date:4538-98-14RO [address] [place] [address]ZV: 08/30/2018 Secondary NOT GIVENUNK [place] Insurance:SELF PAY [facility] Number: Effective Repository Date:2018-08-30 08/28/2018 ATA E Primary ATA E [place] [address] Insurance:DARLIN YODERDOB: [address] [facility] [id number] South Haven Hospital Number: Repository [place], [place] [id number] [phone]: [phone]) Date:7949-08-43PZ [phone] () [address] [address]XW: 08/28/2018 Secondary NOT GIVENUNK Yakov Insurance:SELF PAY [facility] Number: Effective Repository Date:2018-08-28 08/22/2018 ATA E YODERC/O Primary ATA E [place] [id number] CR Insurance:DARLIN YODERDOB: [address] [id number] [place] [address]Tel: [phone]) [facility] Number: Repository [phone] () [id number] Date:4426-71-17KW [address], [place] [address]ID: 08/22/2018 Secondary NOT GIVENUNK Y[place] Insurance:SELF PAY [facility] Number: Effective Repository Date:2018-08-22 08/16/2018 ATA E Primary ATA E [place] [address] Insurance:DARLIN YODERDOB: [facility] [id number] [place] [address] HEALTH PLAN [id number] [facility] Hospital Number: Repository RDGAMACLOTILDEaristes, [place] [id number] [address]Zti: ([phone]) Date:7821-89-72PJ [phone] (HP) [address], [place] [address]EN: 08/16/2018 Secondary NOT GIVENUNK [place] Insurance:SELF PAY [facility] Number: Effective Repository Date:2018-08-16 08/05/2018 ATA E YODERC/O Primary ATA E Yakov [place] [id number] CR Insurance:DARLIN YODERDOB: [address] [id number] Hospital [address]Shq: (330) [facility] Number: Repository [phone] () [id number] Date:9218-60-56RS [address], [place] [address]MX: 08/05/2018 Secondary NOT GIVENUNK Y[place] Insurance:SELF PAY [facility] Number: Effective Repository Date:2018-08-05 07/30/2018 ATA E YODERC/O Primary ATA E Yakov [place] [id number] CR Insurance:DARLIN YODERDOB: [address] [id number] Hospital [address]Kwr: (330) [facility] Repository [phone] () [id number] Date:3925-70-32PF [address] [address]CB: 07/30/2018 Secondary NOT GIVENUNK Yakov Insurance:SELF PAY [facility] Number: Effective Repository Date:2018-07-30 07/29/2018 ATA E YODERC/O Primary ATA E [place] [id number] CR Insurance:DARLIN YODERDOB: [address] [id number] Hospital [address]Bcx: (330) [facility] Number: Repository [phone] () [id number] Date:6208-54-81UH [facility] [place] [address]GG: 07/29/2018 Secondary NOT GIVENUNK [place] Insurance:SELF PAY [facility] Number: Effective Repository Date:2018-07-24 07/26/2018 ATA E YODERC/O Primary ATA E Yakov [place] [id number] CR Insurance:DARLIN YODERDOB: [address] [id number] [place]ille [id number]: [phone]) [facility] Number: Repository [phone] () [id number] Date:2419-49-73EX [facility] [address] [place] [address]QS: 07/26/2018 Secondary NOT GIVENUNK Yakov Insurance:SELF PAY [facility] Number: Effective Repository Date:2018-07-24 07/25/2018 ATA E YODERC/O Primary ATA E Y[place] [id number] CR Insurance:DARLIN YODERDOB: [address] [id number] Hospital [address]Ewt: [phone]) [facility] Number: Repository [phone] () [id number] Date:3594-04-78US [facility] [address] [address]DN: 07/25/2018 Secondary NOT GIVENUNK Yakov Insurance:SELF PAY [facility] Number: Effective Repository Date:2018-07-23 07/24/2018 ATA E Primary ATA E [place] [address] Insurance:DARLIN YODERDOB: Community [id number] E [facility] [id number] [facility] Hospital Number: Repository [place] [id number] [address]Gnp: (330) Date:8527-19-89YF [phone] () [place] [address]WC: 07/24/2018 Secondary NOT GIVENUNK Yakov Insurance:SELF PAY [facility] Number: Effective Repository Date:2018-07-24 07/17/2018 ATA E Primary ATA E [place] [address] Insurance:DARLIN YODERDOB: [facility] [id number] E [facility] HEALTH PLAN [id number] [facility] Hospital Number: Repository [place] [id number]: ([phone]) Date:3260-72-36YJ [phone] () [address] [address]JO: 07/17/2018 Secondary NOT GIVENUNK Y[place] Insurance:SELF PAY [facility] Number: Effective Repository Date:2018-07-17 05/09/2018 ATA E Primary ATA E Yakov [address] Insurance:DARLIN YODERDOB: [facility] [id number] E [facility] HEALTH PLAN [id number] [facility] Hospital Number: Repository [place] [id number] [address]Amy: (330) Date:2917-30-60LN [phone] () [place] [address]TF: 05/09/2018 Secondary NOT GIVENUNK Y[place] Insurance:SELF PAY [facility] Number: Effective Repository Date:2018-05-09 05/09/2018 ATA E Primary ATA E [place] [address] Insurance:DARLIN YODERDOB: Community [id number] E [facility] [id number] Number: Repository [place] [id number]: (330) Date:0503-40-08TE [phone] (HP) [place] [address]IE: 05/09/2018 Secondary NOT GIVENUNK [place] Insurance:SELF PAY [facility] Number: Effective Repository Date:2018-04-25 04/25/2018 ATA E Primary ATA E Y[place] [address] Insurance:DARLIN YODERDOB: Community [id number] E [facility] [id number] Number: Repository [place] [id number]: ([phone]) Date:9816-18-43QV [phone] (HP) [address] [address]RF: 04/25/2018 Secondary NOT GIVENUNK [place] Insurance:SELF PAY [facility] Number: Effective Repository Date:2018-04-25 03/27/2018 ATA E Primary ATA E Y[place] [address] Insurance:DARLIN YODERDOB: Community [id number] E [facility] HEALTH PLAN [id number] Number: Repository [place] [id number]: Date:6465-85-90PX [phone] [place], [place] () [address]LD: 03/27/2018 Secondary NOT GIVENUNK [place] Insurance:SELF PAY [facility] Number: Effective Repository Date:2018-03-20 03/21/2018 ATA E Primary ATA E [place] [address] Insurance:DARLIN YODERDOB: Community [id number] E [facility] HEALTH PLAN [id number] [facility] Number: Repository [place] [id number] [address]Lre: (330) Date:4507-85-37YM [phone] (HP) [address] [address]VX: 03/21/2018 Secondary NOT GIVENUNK Yakov Insurance:SELF PAY [facility] Number: Effective Repository Date:2018-03-21 03/20/2018 ATA E Primary ATA E [place] [address] Insurance:DARLIN YODERDOB: Community [id number] E [employer] HEALTH PLAN [id number] [facility] Number: Repository [place] [id number] [address]Aqi: Date:1365-86-62DB [phone] [address] () [address]HL: 03/20/2018 Secondary NOT GIVENUNK Y[place] Insurance:SELF PAY [facility] Number: Effective Repository Date:2018-03-13 02/27/2018 Ata E Primary Ata E [place] Insurance:DARLIN YoderDOB: Community HEALTHY [id number] [facility] [id number] Psychiatric Center Number: Repository [place] [id number] [address]Ayi: (330) Date:3312-46-26QY [phone] () [address] [place] [address]JQ: 02/27/2018 Secondary NOT GIVENUNK Y[place] Insurance:SELF PAY [facility] Number: Effective Repository Date:2018-02-27 02/04/2018 ATA BERRIOSDERDOB: Primary ATA E Olaf Pomerene Insurance:PRIMETIME YODERDOB: [facility] 83%[place] [facility] OUTPATIENTPolicy [id number] Number: [address] Repository [id number]: (950) [id number] [address] [place] [address], [phone] () Date:Plan Name:[facility] [id number] 01/24/2018 ATA BERRIOSDERDOB: Primary ATA E Olaf Pomerene SR Insurance:PRIMETIME YODERDOB: [facility] 83%[place] MEDICARE [id number] [place] [address] [address] Repository [id number]: (330) Number: 83%[place] [phone] () [id number] [place], Date:Plan Name:P1 [place] [id number] 01/24/2018 Secondary ATA E Olaf Ferguson Insurance:PRIMETIME YODERDOB: [facility] MEDICARE [id number] [facility] [address] Repository Number: 83[facility] [id number] [place], Date:Plan Name:P2 [place] [id number] 12/24/2017 ATA E Primary ATA E [place] Insurance:DARLIN YODERDOB: Community HEALTHY [id number] [facility] HEALTH PLAN [id number] Psychiatric Center Number: [place] [id number] [address]Ykf: (330) Date:2914-31-59DZ [phone] () [address] [address]OE: 12/24/2017 Secondary NOT GIVENUNK Yakov Insurance:SELF PAY [facility] Number: Effective Repository Date:2017-12-24 12/24/2017 ATA E Primary ATA E [place] Insurance:DARLIN YODERDOB: Community HEALTHY [id number] [facility] [id number] Psychiatric Center Number: [place]ository [place], [place] [id number] [address]Nki: (330) Date:3355-48-33FW [phone] () [address] [address]RX: 12/24/2017 Secondary NOT GIVENUNK Y[place] Insurance:SELF PAY [facility] Number: Effective Repository Date:2017-12-24 12/24/2017 ATA E Primary ATA E [place] Insurance:DARLIN YODERDOB: Community HEALTHY [id number] [facility] HEALTH PLAN [id number] Psychiatric Center Number: Repository [place] [id number] [address]Zdc: (330) Date:9564-23-42NC [phone] () [place], [place] [address]ZI: 12/24/2017 Secondary NOT GIVENUNK [place] Insurance:SELF PAY [facility] Number: Effective Repository Date:2017-12-24 12/24/2017 ATA E Primary ATA E [place] Insurance:DARLIN YODERDOB: Community HEALTHY [id number] [facility] HEALTH PLAN [id number] Psychiatric Center Number: Repository [place] [id number] [address]Jyo: (330) Date:6300-44-18CN [phone] () [address], [place] [address]LH: 12/24/2017 Secondary NOT GIVENUNK Yakov Insurance:SELF PAY [facility] Number: Effective Repository Date:2017-12-24 12/24/2017 ATA E Primary ATA E [place] Insurance:DARLIN YODERDOB: Community HEALTHY [id number] [facility] HEALTH PLAN [id number] Psychiatric Center Number: Repository [place] [id number] [address]Utj: (330) Date:1766-33-26XD [phone] (HP) [place] [address]DV: 12/24/2017 Secondary NOT GIVENUNK [place] Insurance:SELF PAY [facility] Number: Effective Repository Date:2017-12-24 12/19/2017 Ata E Primary Ata E [place] Insurance:DARLIN YoderDOB: Community HEALTHY [id number] [facility] HEALTH PLAN [id number] Psychiatric Center Number: Repository [place] [id number] [address]Aac: (330) Date:0847-70-23KK [phone] () [address] [place] [address]EQ: 12/19/2017 Secondary NOT GIVENUNK [place] Insurance:SELF PAY [facility] Number: Effective Repository Date:2017-12-19 12/17/2017 Ata E Primary Ataanne marie Nagy [place] Insurance:DARLIN YoderDOB: Community HEALTHY [id number] [facility] HEALTH PLAN [id number] Psychiatric Center Number: Repository [facility]ITALBRIANNA[facility]istes[place] [id number] [address]Dps: (330) Date:9150-34-86ZW [phone] () [address] [place] [address]SS: 12/17/2017 Secondary NOT GIVENUNK [place] Insurance:SELF PAY [facility] Number: Effective Repository Date:2017-12-17
== END 2018-10-22 16:09 | disposition home or self-care (01) ==
LOC: ED 12:22
PROVIDERS: Emergency Provider Emergency Medicine; Family Provider Family Medicine; PCP Family Medicine
DX: S00.11XA Contusion of right eyelid and periocular area, initial encounter (principal); H11.31 Conjunctival hemorrhage, right eye; S00.83XA Contusion of other part of head, initial encounter; S91.114A Laceration without foreign body of right lesser toe(s) without damage to nail, initial encounter; S90.121A Contusion of right lesser toe(s) without damage to nail, initial encounter; W19.XXXA Unspecified fall, initial encounter; Y93.9 Activity, unspecified; Y92.091 Bathroom in other non-institutional residence as the place of occurrence of the external cause; G61.0 Guillain-Barre syndrome; J44.9 Chronic obstructive pulmonary disease, unspecified; Z79.82 Long term (current) use of aspirin; Z79.899 Other long term (current) drug therapy
CPT/HCPCS: 12002; 70450; 73630; 90715; 99284

== ENCOUNTER → 2018-10-28 04:00 | Outpatient (REF) | payer MEDICARE, SELFPAY ==
[2018-10-22 11:44] VITALS: BMI 40.6
[2018-10-28 07:43] LABS: Hematocrit 41.3 % (37-47); Hemoglobin 12.8 g/dl (12.0-15.0); Mean Corpuscular Hgb 29.2 pg (27.0-32.0); Mean Corpuscular Volume 94.3 fL (81-99); Mean Platelet Vol. 11.4 fl (6.2-12.0); Platelet Count 177 K/mm3 (150-450); RBC Distribution Width CV 17.5 % (11.6-14.6); RBC Distribution Width SD 57.4 fl (35.1-43.9); Red Blood Count 4.38 M/mm3 (4.2-5.4); White Blood Count 6.8 K/mm3 (4.4-11.0)
[2018-10-28 07:50] LABS: ALB/GLOB Ratio 0.8 RATIO (0.9-2.4); AST(SGOT) 26 U/L (15-37); Alanine Aminotransfer ALT/SGPT 22 U/L (13-56); Alkaline Phosphatase 159 U/L (45-117); Anion Gap 8 (5-15); BUN 26 mg/dL (7-18); BUN/Creat Ratio 25.7 RATIO (10-20); Calcium,Total 8.9 mg/dL (8.5-10.1); Chloride 101 mmol/L (98-107); Creatinine, Serum 1.01 mg/dL (0.55-1.02); EST Glomerular Filtration Rate 57 mL/min (>60); Est Glom Filt Rate - Afr Amer 69 mL/min (>60); Globulin 3.7 g/dL (2.2-4.2); Glucose 80 mg/dL (74-106); Potassium 3.9 mmol/L (3.5-5.1); Protein, Total 6.7 g/dL (6.4-8.2); Sodium Level 141 mmol/L (136-145)
[2018-10-28 07:59] LABS: Scan Indicated on CBC? Y/N NO
[2018-10-28 08:37] LABS: Vitamin B12 1027 pg/mL (211-911)
== END ==
LOC: OLS.AVEB 04:00
PROVIDERS: Visit Provider Family Medicine
DX: E78.5 Hyperlipidemia, unspecified (principal)
CPT/HCPCS: 36415; 80053; 82607; 85027

== ENCOUNTER → 2018-11-07 04:30 | Outpatient (REF) | payer MEDICARE, SELFPAY ==
[2018-10-22 11:44] VITALS: BMI 40.6
[2018-11-07 06:50] LABS: Absolute Lymphocyte Count 0.76 X10^3/ul (0.83-4.51); Basophil# 0.04 X10^3/uL; Basophil% 0.7 % (0-1); Eosinophil# 0.21 X10^3/uL; Eosinophils% 3.8 % (0-5); Hematocrit 44.8 % (37-47); Hemoglobin 13.3 g/dl (12.0-15.0); Lymphocyte # 0.76 X10^3/ul (4.0); Lymphocyte % 13.9 % (19-41); Mean Corp Hgb Conc 29.7 g/gl (32-36); Mean Corpuscular Hgb 28.8 pg (27.0-32.0); Mean Platelet Vol. 10.5 fl (6.2-12.0); Monocyte# 0.45 X10^3/uL; Monocyte% 8.2 % (0-10); Neutrophil % 73.2 % (47-70); Platelet Count 264 K/mm3 (150-450); RBC Distribution Width CV 17.5 % (11.6-14.6); Red Blood Count 4.62 M/mm3 (4.2-5.4); White Blood Count 5.5 K/mm3 (4.4-11.0)
[2018-11-07 06:51] LABS: POSITIVE COUNT NO; POSITIVE DIFFERENTIAL NO; POSITIVE MORPHOLOGY NO
== END ==
LOC: OLS.AVEB 04:30
PROVIDERS: Visit Provider Family Medicine
DX: J44.9 Chronic obstructive pulmonary disease, unspecified (principal)
CPT/HCPCS: 36415; 85025

== ENCOUNTER → 2018-11-12 20:00 | Outpatient (REF) | payer MEDICARE, SELFPAY ==
[2018-10-22 11:44] VITALS: BMI 40.6
[2018-11-13 09:13] LABS: Bacteria 0 SEEN /hpf (None Seen); Mucous, Urine 0 SEEN /hpf (<or=2+); Red Blood Cells-Urine 0 SEEN /hpf (0-5); Squamous Epithelial Cells - UA 0 SEEN /hpf (5-10); White Blood Cells 0 SEEN /hpf (0-5)
[2018-11-13 09:41] LABS: Color, Urine Yellow (Yellow); Glucose, Dipstick Normal (Normal); Ketone-Dipstick Negative (Negative); Leukocyte Esterase-Dipstick Negative /ul (Negative); Nitrite-Dipstick Negative (Negative); Occult Blood-Urine Negative /ul (Negative); Protein-Dipstick 30 mg/dl (Negative); Specific Gravity, Urine 1.015 (1.002-1.030); Urine Bilirubin Dipstick Negative (Negative); Urine Clarity Sl. Cloudy (Clear); Urine Urobilinogen 1 mg/dl (Normal)
[2018-11-13 09:52] LABS: Amorphous Sediment 1+
== END ==
LOC: OLS.AVEB 20:00
PROVIDERS: Visit Provider Family Medicine
DX: N39.0 Urinary tract infection, site not specified (principal)
CPT/HCPCS: 81001; 87086; 87088